=== PATIENT | female | born 1955 | race American Indian/Alaskan Native ===

== ENCOUNTER 2017-06-12 12:04 | Inpatient (IN) | payer MEDICARE ==
[2017-06-12] MEDS ORDERED: NACL 0.9% 500 ML 500 ML IV ONE ×2 (12:13→13:38)
[2017-06-12] MEDS ORDERED: ZEMURON IV ONE ×2 (12:14→12:27)
[2017-06-12] MEDS ORDERED: AMIDATE IV ONE ×2 (12:14→12:26)
[2017-06-12] MEDS ORDERED: SUBLIMAZE ONE (12:16)
[2017-06-12] MEDS ORDERED: NEO SYNEPHRINE IV ONE (12:23)
[2017-06-12] MEDS ORDERED: ARTIFICIAL TEARS OPHTH OINT OU PRN (12:24)
[2017-06-12] MEDS ORDERED: VASELINE LIP THERAPY TP PRN (12:24)
[2017-06-12] MEDS ORDERED: LEVOPHED DRIP 4 MG/NS 250 ML 4 MG/250 ML BAG IV ONE (12:32)
[2017-06-12] MEDS ORDERED: NACL 0.9% IV SCH (12:45)
[2017-06-12] MEDS ORDERED: NEO SYNEPHRINE IV SCH ×2 (12:45→14:00)
--- NOTE | 2017-06-12 12:56 | Emergency Department Report ---
ED General Adult HPI - General Chief complaint: Altered Mental Status Stated complaint: POSSIBLE CVA Time Seen by Provider: 06/12/17 12:52 Source: EMS (verbal report received from EMS.ems notes not available at time of chart dictation), RN notes reviewed, old records reviewed Mode of arrival: Stretcher Limitations: Altered Mental Status - History of Present Illness Initial comments: This is a 61-year-old female. She is previously unknown to me. Patient is brought to the hospital by EMS for altered mental status. As per verbal report from EMS, patient found unresponsive at home, but uncertain duration of time, for uncertain mechanism. EMS indicated the patient is sitting in a wheelchair. EMS further stated that the patient's son indicated the patient has been altered since this morning. The patient's son further indicated that the patient was alert yesterday, and indicated the patient had not taken insulin in 2 days. The patient's last known well time is not known, and family is not currently available for corroborating information. However, given that patient was found this morning by son as her EMS documentation with altered mental status, she is not a TPA candidate Patient had appropriate fingerstick in the field at 283. Upon arrival to the ER , patient was breathing sonorously, and not protecting her airway. An 18-gauge IV was placed by myself the left external jugular system, patient was placed on a nasal cannula, at 15 L/m, and received bag valve mask ventilation. She was found to be hypotensive with a blood pressure in the 60s/70s. The patient was intubated by myself emergently using direct laryngoscopy with no obvious complications. After intubation, the patient remained hypotensive. The family was available, patient had poor peripheral access, so the patient was emergently an administratively consented by myself for left-sided internal jugular central line placement. This was performed with ultrasound guidance with one attempt, with no difficulty and no obvious complications. No family is available at this time. No further information is available at this time. -: unknown Severity scale (0 -10): 10 Consistency: constant Improves with: other (per hpi) Worsens with: other (per hpi) Associated Symptoms: confusion, weakness, other (per hpi) - Related Data Home Medications Medication Instructions Recorded Confirmed Last Taken Clopidogrel [Plavix] 75 mg PO QDAY 06/12/17 06/12/17 Unknown Insulin Aspart [NovoLOG Flexpen] 16 units SQ BID 06/12/17 06/12/17 Unknown Lisinopril/Hydrochlorothiazide 1 tab PO QDAY 06/12/17 06/12/17 Unknown [Zestoretic 20-25 mg] Pantoprazole [Protonix] 40 mg PO QDAY 06/12/17 06/12/17 Unknown traMADol [Ultram] 50 mg PO Q6HR PRN 06/12/17 06/12/17 Unknown Allergies Allergy/AdvReac Type Severity Reaction Status Date / Time No Known Allergies Allergy Verified 03/31/14 10:36 ED Review of Systems ROS: Stated complaint: POSSIBLE CVA Other details as noted in HPI Comment: Unobtainable due to pts medical conditions ED Past Medical Hx - Past Medical History Hx Hypertension: Yes Hx Heart Attack/AMI: No Hx Congestive Heart Failure: No Hx Diabetes: Yes Hx Liver Disease: No Hx Renal Disease: Yes Hx Sickle Cell Disease: No Hx Arthritis: Yes Hx Seizures: No Hx Asthma: No Hx COPD: No Hx Tuberculosis: No - Surgical History Hx Pacemaker: No Hx Internal Defibrillator: No - Social History Smoking Status: Unknown if ever smoked - Medications Home Medications: Home Medications Medication Instructions Recorded Confirmed Last Taken Type Clopidogrel [Plavix] 75 mg PO QDAY 06/12/17 06/12/17 Unknown History Insulin Aspart [NovoLOG Flexpen] 16 units SQ BID 06/12/17 06/12/17 Unknown History Lisinopril/Hydrochlorothiazide 1 tab PO QDAY 06/12/17 06/12/17 Unknown History [Zestoretic 20-25 mg] Pantoprazole [Protonix] 40 mg PO QDAY 06/12/17 06/12/17 Unknown History traMADol [Ultram] 50 mg PO Q6HR PRN 06/12/17 06/12/17 Unknown History ED Physical Exam - General Limitations: Altered Mental Status General appearance: obtunded - Eye Eye exam: Present: PERRL - ENT ENT exam: Present: mucous membranes dry - Neck Neck exam: Present: normal inspection - Respiratory Respiratory exam: Absent: respiratory distress, wheezes, rales, rhonchi, stridor - Cardiovascular Cardiovascular Exam: Present: regular rate, normal rhythm, normal heart sounds. Absent: bradycardia, tachycardia, irregular rhythm, systolic murmur, diastolic murmur, rubs, gallop - GI/Abdominal GI/Abdominal exam: Present: soft, normal bowel sounds. Absent: distended, tenderness, guarding, rebound, rigid, pulsatile mass - Extremities Exam Extremities exam: Present: normal inspection. Absent: pedal edema - Back Exam Back exam: Present: normal inspection. Absent: CVA tenderness (R) - Neurological Exam Neurological exam: Present: altered, other (prior to intubation, the patient is moving 4 extremities spontaneously) ED Course Vital Signs 06/12/17 06/12/17 06/12/17 11:04 12:08 12:10 Temperature Pulse Rate 86 89 Respiratory 10 L 14 17 Rate Blood Pressure O2 Sat by Pulse 79 L Oximetry 06/12/17 06/12/17 06/12/17 12:25 12:29 12:30 Temperature Pulse Rate 90 88 93 H Respiratory 18 18 Rate Blood Pressure 131/82 64/42 O2 Sat by Pulse 100 95 96 Oximetry 06/12/17 06/12/17 06/12/17 12:40 12:42 12:50 Temperature Pulse Rate 90 93 H 90 Respiratory 18 20 Rate Blood Pressure 66/40 75/53 O2 Sat by Pulse 95 100 Oximetry 06/12/17 06/12/17 06/12/17 13:00 13:06 13:16 Temperature 97.7 F Pulse Rate 94 H 94 H Respiratory 18 18 Rate Blood Pressure 131/82 152/86 O2 Sat by Pulse 100 Oximetry 06/12/17 06/12/17 06/12/17 13:30 13:46 14:00 Temperature Pulse Rate 92 H 91 H 90 Respiratory 18 18 14 Rate Blood Pressure 201/102 188/115 192/111 O2 Sat by Pulse 100 100 100 Oximetry 06/12/17 06/12/17 06/12/17 14:16 14:30 15:02 Temperature Pulse Rate 89 95 H 81 Respiratory 14 14 15 Rate Blood Pressure 245/85 239/103 239/103 O2 Sat by Pulse 100 100 Oximetry 06/12/17 06/12/17 06/12/17 15:16 15:30 15:46 Temperature Pulse Rate 96 H 97 H 96 H Respiratory 15 16 13 Rate Blood Pressure 209/101 226/106 215/100 O2 Sat by Pulse 100 100 100 Oximetry 06/12/17 06/12/17 06/12/17 16:00 16:16 16:30 Temperature Pulse Rate 102 H 99 H 96 H Respiratory 17 14 14 Rate Blood Pressure 214/94 196/85 132/80 O2 Sat by Pulse 99 98 98 Oximetry 06/12/17 06/12/17 06/12/17 16:46 17:00 17:16 Temperature Pulse Rate 92 H 90 98 H Respiratory 16 14 15 Rate Blood Pressure 147/76 151/85 113/71 O2 Sat by Pulse 100 100 100 Oximetry 06/12/17 06/12/17 06/12/17 17:18 17:30 17:46 Temperature Pulse Rate 85 95 H Respiratory 17 17 Rate Blood Pressure 113/71 109/67 115/52 O2 Sat by Pulse 100 100 99 Oximetry 06/12/17 06/12/17 06/12/17 18:00 18:16 18:30 Temperature Pulse Rate 85 83 86 Respiratory 14 15 27 H Rate Blood Pressure 127/75 109/66 101/74 O2 Sat by Pulse 100 100 100 Oximetry 06/12/17 06/12/17 06/12/17 18:46 19:14 19:35 Temperature 95.5 F L Pulse Rate 82 90 Respiratory 14 Rate Blood Pressure 122/68 152/80 O2 Sat by Pulse 100 99 Oximetry - Reevaluation(s) Reevaluation #1: 06/12/17 14:42 Urinalysis suggests urinary tract infection. Antibiotics ordered. Blood pressure now in the 240s. No vasopressor requirements. Cardene drip ordered. Elevated troponin is appreciated. This is in the context of resolving hypotension, altered mental status and renal insufficiency. Noncontrast CT scan of the brain is pending. Reevaluation #2: 06/12/17 16:[address] scan of the brain demonstrates a large ill-defined area of low attenuation in the right posterior temporal parietal region. It suggests acute/ subacute/chronic ischemia. X-ray of the chest suggest pneumonia. Patient not a TPA candidate given hypotension, altered mental status, last known well time is unknown. Because of technical issues with the CT scanner, noncontrast CT scan of the cervical spine is not able to be obtained. X-ray of the cervical spine is ordered. Reevaluation #3: 06/12/17 16:51 Dr Owen accepts patient Noncontrast CT scan of the neck is negative. Endotracheal tube was retracted 5 cm by respiratory therapy. 06/12/17 19:57 - Central Line Placement Right IJ Consent Obtained: emergent situation Time Out Performed: Yes Patient Placed on Monitor/Pulse Ox: Yes MD Prep: mask, gown, gloves Central Line Prep: Chlorhexidine scrub Ultrasound Used for Placement: Yes Central Line Lumen Inserted: triple Bloods Obtained for Lab: Yes Central Line Position: good blood return, all ports aspirated, flus, sutured in place with 2-0 Dressing Applied: Tegaderm Post Procedure X-Ray: tip of catheter in good p Patient Tolerated Procedure: well Complications: none - EJ/Peripheral Line Neck L Time Out Performed: Yes Indications: nurses unable to establis Skin Cleansed in Sterile Fashion: Yes Size: 18 Dressing Placed: Tegaderm Patient Tolerated Procedure: well - Intubation Time Out Performed: Yes Sedative: Etomidate Mg Given: 20 Paralytic: Rocuronium Mg Given: 100 Laryngoscope: William Size: 4 ET Tube Size: 7.5 Tube Secured Depth (cm): 24 Tube Secured Location: teeth Tube Placement Confirmation: visualized tube passing t Patient Tolerated Procedure: well Intubation Complications: none Additional Comments: Patient is preoxygenated with nasal cannula at 15 L/m, received [id number] ventilation. Does not desaturate. Endotracheal tube placed with 1 attempt with no difficulty. ED Medical Decision Making - Lab Data Result diagrams: 06/12/17 12:55 06/12/17 12:55 Vital Signs 06/12/17 06/12/17 06/12/17 11:04 12:08 12:10 Temperature Pulse Rate 86 89 Respiratory 10 L 14 17 Rate Blood Pressure O2 Sat by Pulse 79 L Oximetry 06/12/17 06/12/17 06/12/17 12:25 12:29 12:30 Temperature Pulse Rate 90 88 93 H Respiratory 18 18 Rate Blood Pressure 131/82 64/42 O2 Sat by Pulse 100 95 96 Oximetry 06/12/17 06/12/17 06/12/17 12:40 12:42 12:50 Temperature Pulse Rate 90 93 H 90 Respiratory 18 20 Rate Blood Pressure 66/40 75/53 O2 Sat by Pulse 95 100 Oximetry 06/12/17 13:06 Temperature 97.7 F Pulse Rate Respiratory Rate Blood Pressure O2 Sat by Pulse Oximetry Lab Results 06/12/17 06/12/17 06/12/17 Range/Units 12:55 12:55 12:55 WBC 14.9 H (4.5-11.0) K/mm3 RBC 4.10 (3.65-5.03) M/mm3 Hgb 10.1 (10.1-14.3) gm/dl Hct 31.9 (30.3-42.9) % MCV 78 L (79-97) fl MCH 25 L (28-32) pg MCHC 32 (30-34) % RDW 15.8 H (13.2-15.2) % Plt Count 396 (140-440) K/mm3 Seg Neutrophils % Yield Loss Inspector PT 16.1 H (12.2-14.9) Sec. INR 1.30 H (0.87-1.13) APTT 29.2 (24.2-36.6) Sec. ABG pH (7.350-7.450) pH Units VBG pH (7.320-7.420) FiO2 % Sodium 145 (137-145) mmol/L Potassium 4.3 (3.6-5.0) mmol/L Chloride 105.9 (98-107) mmol/L Carbon Dioxide 20 L (22-30) mmol/L Anion Gap 23 mmol/L BUN 75 H (7-17) mg/dL Creatinine 2.5 H (0.7-1.2) mg/dL Estimated GFR 24 ml/min BUN/Creatinine Ratio 30.00 % Glucose 289 H (65-100) mg/dL Calcium 9.3 (8.4-10.2) mg/dL Total Bilirubin 0.40 (0.1-1.2) mg/dL AST 11 (5-40) units/L ALT 9 (7-56) units/L Alkaline Phosphatase 67 (35-129) units/L Total Protein 7.1 (6.3-8.2) g/dL Albumin 2.6 L (3.9-5) g/dL Albumin/Globulin Ratio 0.6 % Plasma/Serum Alcohol (0-0.07) gm% Blood Type 06/12/17 06/12/17 06/12/17 Range/Units 12:55 13:05 13:06 WBC (4.5-11.0) K/mm3 RBC (3.65-5.03) M/mm3 Hgb (10.1-14.3) gm/dl Hct (30.3-42.9) % MCV (79-97) fl MCH (28-32) pg MCHC (30-34) % RDW (13.2-15.2) % Plt Count (140-440) K/mm3 Seg Neutrophils % PT (12.2-14.9) Sec. INR (0.87-1.13) APTT (24.2-36.6) Sec. ABG pH 7.421 (7.350-7.450) pH Units VBG pH 7.421 H (7.320-7.420) FiO2 21 % Sodium (137-145) mmol/L Potassium (3.6-5.0) mmol/L Chloride (98-107) mmol/L Carbon Dioxide (22-30) mmol/L Anion Gap mmol/L BUN (7-17) mg/dL Creatinine (0.7-1.2) mg/dL Estimated GFR ml/min BUN/Creatinine Ratio % Glucose (65-100) mg/dL Calcium (8.4-10.2) mg/dL Total Bilirubin (0.1-1.2) mg/dL AST (5-40) units/L ALT (7-56) units/L Alkaline Phosphatase (35-129) units/L Total Protein (6.3-8.2) g/dL Albumin (3.9-5) g/dL Albumin/Globulin Ratio % Plasma/Serum Alcohol < 0.01 (0-0.07) gm% Blood Type O POSITIVE - EKG Data -: EKG Interpreted by In - EKG Data 06/12/17 13:46 sinus, 92 bpm, normal axis, QTC 489 ms, not morphologically consistent with STEMI, abnormal EKG, highly ventricular voltage/left ventricular hypertrophy. - Radiology Data Radiology results: report reviewed, image reviewed Noncontrast CT scan suggests subacute to chronic infarct. No intracranial hemorrhage. Portable x-ray of the chest demonstrates endotracheal tube in the right mainstem bronchus, appropriate positioning of central line, possible pneumonia. Critical Care Time: Yes Critical care time in (mins) excluding proc time.: 45 Critical care attestation.: If time is entered above; I have spent that time in minutes in the direct care of this critically ill patient, excluding procedure time. Critical Care Time: Critical care time includes multiple bedside evaluations, interpretation of laboratory studies, radiology studies, time spent discussing patient's care with multiple consulting services, including hospital medicine, critical care medicine. This does not include procedure time. ED Disposition Clinical Impression: Encephalopathy, UTI (urinary tract infection), Pneumonia Disposition: [id number] OP ADMIT IP TO THIS HOSP Is pt being admited?: Yes Condition: Critical
[2017-06-12] MEDS ORDERED: NACL 0.9% 500 ML IV SCH ×2 (13:00)
[2017-06-12] MEDS ORDERED: LEVOPHED DRIP 4 MG/NS 250 ML 4 MG/250 ML BAG IV SCH (13:00)
[2017-06-12 13:11] LABS: Hematocrit 31.9 % (30.3-42.9); Hemoglobin 10.1 gm/dl (10.1-14.3); Mean Corpuscular HGB Conc 32 % (30-34); Mean Corpuscular Volume 78 fl (79-97); Platelet Count 396 K/mm3 (140-440); Red Cell Distribution Width 15.8 % (13.2-15.2); White Blood Count 14.9 K/mm3 (4.5-11.0)
[2017-06-12 13:16] LABS: Mean Corpuscular Hemoglobin 25 pg (28-32)
[2017-06-12] MEDS ORDERED: NACL 0.9% 1000 ML 1,000 ML ONE (13:19)
[2017-06-12 13:20] LABS: INR 1.3 (0.87-1.13)
[2017-06-12 13:21] LABS: Partial Thromboplastin Time 29.2 Sec. (24.2-36.6)
[2017-06-12 13:30] LABS: Albumin 2.6 g/dL (3.9-5); Albumin/Globulin Ratio 0.6 %; Bilirubin,Total 0.4 mg/dL (0.1-1.2); Calcium 9.3 mg/dL (8.4-10.2); Chloride 105.9 mmol/L (98-107); Potassium 4.3 mmol/L (3.6-5.0); Total Protein 7.1 g/dL (6.3-8.2)
[2017-06-12] MEDS ORDERED: NACL 0.9% 1000 ML 2,000 ML IV ONE (13:40)
[2017-06-12 13:55] LABS: ABG PH TNR pH Units (7.350-7.450)
[2017-06-12 13:56] LABS: ABG Base Excess TNR mmol/L (-2.0-3.0); ABG HCO3 TNR mmol/L (20.0-26.0); ABG Oxygen Saturation TNR % (95.0-99.0); ABG PCO2 TNR mm Hg; ABG PO2 TNR mm Hg (80.0-90.0)
[2017-06-12 14:07] LABS: Bacteria,Urine 4+ /HPF (Negative); Bilirubin,Urine NEG (Negative); Blood,Urine MOD (Negative); Ketones,Urine NEG (Negative); Leukocyte Esterase,Urine LG (Negative); Mucus,Urine FEW /HPF; Nitrite,Urine NEG (Negative); Urobilinogen,Urine < 2.0 mg/dL (<2.0)
[2017-06-12 14:16] LABS: Blastocytes % (Manual) 0 %; Hypochromasia 1+
[2017-06-12 14:17] LABS: Anisocytosis 1+; Creatine Kinase 34 units/L (30-135); Diff Status Complete; Schistocytes Few; Target Cells 1+
[2017-06-12 14:19] LABS: Creatine Kinase MB < 1.0 ng/mL (0.0-4.0)
[2017-06-12] MEDS ORDERED: ROCEPHIN/NS 1 GM/50 ML 1 GM/50 ML BAG IV ONE (14:24)
[2017-06-12 14:26] LABS: ISTAT Base Excess 3; ISTAT HCO3 25.7; ISTAT PCO2 31.3 (35-45); ISTAT PH 7.521 (7.35-7.45); ISTAT PO2 389 (80-105); ISTAT SO2 100; ISTAT TCO2 27
[2017-06-12 15:13] LABS: Cholesterol 157 mg/dL (50-199); HDL Cholesterol 39 mg/dL (40-59); LDL Cholesterol,Direct 96 mg/dL (50-130); Triglycerides 114 mg/dL (2-149)
--- NOTE | 2017-06-12 15:31 | XRay Report ---
Single view chest: History: ET tube placement. Findings: Borderline cardiomegaly. Trachea is midline. Tip of endotracheal tube is in the right mainstem bronchus. It should be withdrawn approximately 5 cm. Right central line appears stable. Infiltrates are identified in the left lower lobe in the retrocardiac region. Impression: Infiltrates left lower lobe. Tip of endotracheal tube should be withdrawn as detailed above.
--- NOTE | 2017-06-12 15:32 | Cat Scan Report ---
CT scan of head without contrast: History: Altered mental status. Findings: Ventricles are normal in size and midline in location. Large ill-defined area of low-attenuation measuring approximately 5 x 3 cm in diameter noted in the right posterior temporoparietal region. There is no dilatation or compression of the adjacent ventricle. No midline shift. No hemorrhage. No extra-axial fluid collection. Normal brainstem. 4 mm focal area of low attenuation left cerebellum suggestive of chronic infarct. Impression: Large ill-defined area of low-attenuation in the right posterior temporoparietal region. No previous studies available for comparison. Findings may represent acute/subacute/chronic ischemia. If clinically indicated MRI scan may be advised.
--- NOTE | 2017-06-12 15:35 | Admit Criteria Form ---
Admission Criteria Documentation: SEPSIS and OTHER FEBRILE ILLNESS, W/O FOCAL INFECTION Clinical Indications for Admission to Inpatient Care ( Place 'X' for any and all applicable criteria): Admission to inpatient status for two midnights or more is indicated for ANY ONE of the following (1)(2)(3): [ ] I. Bacteremia [ ]II. Suspected or identified specific infection requiring hospitalization (eg, meningitis, endocarditis) [ ]III. Hemodynamic instability [ ]IV. Temperature > 104.9 0F (40.5 0C) (oral) [ ]V. Core (rectal) temperature < 95 0F (35 0C) (eg, thought to be due to infection) [X]. Altered mental status that is severe or persistent [ ]VII. Failure or unavailability of outpatient antimicrobial treatment [ ]VIII. Hypoxemia [ ]IX. Seizures [ ]X. New coagulopathy (eg, reduced platelet count consistent with disseminated intravascular coagulation) [ ]XI. Inpatient admission required [B] rather than observation care because of 1 or more of the following 1) Tachypnea not responsive to outpatient or observation treatment 2) Metabolic disorder (eg, hypoglycemia, hyperglycemia, metabolic acidosis ) that persists despite outpatient and observation care treatment 3) Evidence of end-organ dysfunction (eg, rising creatinine, myocardial ischemia, rising liver function tests) that is severe or persists despite observation care treatment 4) Temperature > 103.1 0F (39.5 0C) (oral) that is not responsive to observation care treatment 5) Dehydration that is severe or persistent 6) Parenteral antimicrobial regimen that must be implemented on inpatient basis (eg, infusion or monitoring needs beyond capabilities of outpatient parenteral therapy) 7) Strict or protective (eg, laminar flow) isolation 8) Other condition, treatment or monitoring requiring inpatient admission Extended stay beyond goal length of stay may be needed for(1)(3) [ ]a) Persistent Hypotension [ ]b) Positive blood cultures [ ]c) Lack of improvement on antimicrobial treatment (eg, continued fever) [ ]d) Active comorbid illness (eg, heart failure, renal failure) [ ]e) High-risk febrile neutropenia [ ]f) Insufficient oral intake [ ]g) insufficient oral intake The original [employer] content created by [employer] has been revised. The portions of the content which have been revised are identified through the use of italic text or in bold, and [employer] has neither reviewed nor approved the modified material. All other unmodified content is copyright [facility]. Please see references footnoted in the original [facility] edition 2017 Admission Criteria Met: Yes
[2017-06-12] MEDS: CARDENE 50 MG in NACL 0.9% 250ML 230 ML IV SCH (15:51)
[2017-06-12] MEDS ORDERED: ASPIRIN PR ONE (16:12)
--- NOTE | 2017-06-12 16:25 | Cat Scan Report ---
Cervical CT without contrast: Fall, pain. Transverse images are obtained from the skull base through T3. Coronal and sagittal 2-D reformatted images included. Anterior and posterior spurring with narrowing andis present at C5-6 and C6-7 levels. The vertebral height is maintained. There is mild reversal of the mid cervical spine at the C4-5 level. The left foramen appears questionably narrowed on left at C3-4 with some proliferation of bone from the apophyseal joint. There is mild right uncal spurring at C5-6 with mild narrowing of the foramen. There is no significant uncal spurring predominantly on the right at C6-7 with moderate narrowing of the foramen. No evidence of spinal stenosis identified. No obvious fracture and no swelling noted. Endotracheal and nasogastric tubes are present. Impressions: Findings most consistent with degenerative C5-7 changes. No fracture and no acute finding suspected.
[2017-06-12] MEDS ORDERED: ZITHROMAX 500 MG in NACL 0.9% 250ML 250 ML IV ONE (17:00)
--- NOTE | 2017-06-12 17:36 | History and Physical Report ---
History of Present Illness Date of examination: 06/12/17 Date of admission: 06/12/17 Chief complaint: AMS since yesterday History of present illness: History of Present Illness This is a 61-year-old female Patient brought to the hospital by EMS for altered mental status. As per verbal report from EMS, patient found unresponsive at home, but uncertain duration of time, for uncertain mechanism. EMS indicated the patient is sitting in a wheelchair. EMS further stated that the patient's son indicated the patient has been altered since this morning. The patient's son further indicated that the patient was alert yesterday, and indicated the patient had not taken insulin in 2 days. The patient's last known well time is not known, and family is not currently available for corroborating information. However, given that patient was found this morning by son as her EMS documentation with altered mental status, she is not a TPA candidate Patient had fingerstick in the field at 283. Upon arrival to the ER, patient was breathing sonorously, and not protecting her airway. A 18-gauge IV was placed in the left external jugular system, nasal cannula oxygen at 15 L/m, and received bag valve mask ventilation. She was found to be hypotensive with a blood pressure in the 60s/70s. The patient was intubated in the ER After intubation, the patient remained hypotensive. The family was unavailable , patient had poor peripheral access. Patient had Central line placed in L Jugular This was performed with ultrasound guidance with one attempt, with no difficulty and no obvious complications. No family is available at this time. No further information is available at this time. -: unknown Severity scale (0 -10): 10 Consistency: constant Improves with: other (per hpi) Worsens with: other (per hpi) Associated Symptoms: confusion, weakness, other (per hpi) ED Past Medical Hx - Past Medical History Hx Hypertension: Yes Hx Heart Attack/AMI: No Hx Congestive Heart Failure: No Hx Diabetes: Yes Hx Liver Disease: No Hx Renal Disease: Yes Hx Sickle Cell Disease: No Hx Arthritis: Yes Hx Seizures: No Hx Asthma: No Hx COPD: No Hx Tuberculosis: No - Surgical History Hx Pacemaker: No Hx Internal Defibrillator: No - Social History Smoking Status: Unknown if ever smoked - Medications Home Medications: Home Medications Medication Instructions Recorded Confirmed Last Taken Type Clopidogrel [Plavix] 75 mg PO QDAY 06/12/17 06/12/17 Unknown History Insulin Aspart [NovoLOG Flexpen] 16 units SQ BID 06/12/17 06/12/17 Unknown History Lisinopril/Hydrochlorothiazide 1 tab PO QDAY 06/12/17 06/12/17 Unknown History [Zestoretic 20-25 mg] Pantoprazole [Protonix] 40 mg PO QDAY 06/12/17 06/12/17 Unknown History traMADol [Ultram] 50 mg PO Q6HR PRN 06/12/17 06/12/17 Unknown History ED Review of Systems ROS: Stated complaint: POSSIBLE CVA Other details as noted in HPI Comment: Unobtainable due to pts medical conditions Medications and Allergies Allergies Allergy/AdvReac Type Severity Reaction Status Date / Time No Known Allergies Allergy Verified 03/31/14 10:36 Home Medications Medication Instructions Recorded Confirmed Last Taken Type Clopidogrel [Plavix] 75 mg PO QDAY 06/12/17 06/12/17 Unknown History Insulin Aspart [NovoLOG Flexpen] 16 units SQ BID 06/12/17 06/12/17 Unknown History Lisinopril/Hydrochlorothiazide 1 tab PO QDAY 06/12/17 06/12/17 Unknown History [Zestoretic 20-25 mg] Pantoprazole [Protonix] 40 mg PO QDAY 06/12/17 06/12/17 Unknown History traMADol [Ultram] 50 mg PO Q6HR PRN 06/12/17 06/12/17 Unknown History Active Meds: Active Medications Hydrophilic Ointment (Vaseline Lip Therapy) 1 applic TP Q2HR PRN PRN Reason: Dry Lips Phenylephrine HCl 100 mg/ (Sodium Chloride) 110 mls @ 0 mls/hr IV TITRATE ELIAZAR Norepinephrine (Levophed Drip 4 Mg/Ns 250 Ml) 4 mg in 250 mls @ 7.5 mls/hr IV TITR ELIAZAR; 2 MCG/MIN PRN Reason: Protocol Last Titration: 06/12/17 13:29 Dose: 0 mcg/min, 0 mls/hr Nicardipine HCl 50 mg/ Sodium (Chloride) 250 mls @ 25 mls/hr IV TITR ELIAZAR; 5 MG/ HR PRN Reason: Protocol Last Titration: 06/12/17 17:11 Dose: 0 mg/hr, 0 mls/hr Azithromycin 500 mg/ Sodium (Chloride) 250 mls @ 250 mls/hr IV ONCE.ED ONE Stop: 06/12/17 17:59 Multi-Ingred Cream/Lotion/Oil/Oint (Artificial Tears Ophth Oint) 1 applic OU Q4HR PRN PRN Reason: Dry Eye(s) Sodium Chloride (Nacl 0.9% 500 Ml) 100 ml IV DIRECT ELIAZAR Exam - Physical Exam Narrative exam: Patient intubated on vent - Constitutional Vitals: Temp Pulse Resp BP Pulse Ox 97.7 F 98 H 15 113/71 100 06/12/17 13:06 06/12/17 17:16 06/12/17 17:16 06/12/17 17:18 06/12/17 17:18 General appearance: Present: severe distress, well-nourished - EENT Eyes: Present: PERRL ENT: clear oral mucosa - Neck Neck: Present: supple, normal ROM - Respiratory Respiratory effort: normal Respiratory: bilateral: rhonchi - Cardiovascular Rhythm: regular Heart Sounds: Present: S1 & S2. Absent: rub, click - Extremities Extremities: no ischemia, pulses intact, pulses symmetrical, No edema Peripheral Pulses: within normal limits - Abdominal General gastrointestinal: Present: soft, non-tender, non-distended, normal bowel sounds Female genitourinary: Present: normal - Rectal Rectal Exam: deferred - Integumentary Integumentary: Present: clear, warm, dry - Musculoskeletal Musculoskeletal: generalized weakness - Psychiatric Psychiatric: agitated - Neurologic Neurologic: CNII-XII intact, moves all extremities - Allied Health Allied health notes reviewed: nursing, case management Results - Labs CBC & Chem 7: 06/13/17 04:45 06/13/17 04:45 Labs: Laboratory Last Values WBC 14.9 K/mm3 (4.5-11.0) H 06/12/17 12:55 RBC 4.10 M/mm3 (3.65-5.03) 06/12/17 12:55 Hgb 10.1 gm/dl (10.1-14.3) 06/12/17 12:55 Hct 31.9 % (30.3-42.9) 06/12/17 12:55 MCV 78 fl (79-97) L 06/12/17 12:55 MCH 25 pg (28-32) L 06/12/17 12:55 MCHC 32 % (30-34) 06/12/17 12:55 RDW 15.8 % (13.2-15.2) H 06/12/17 12:55 Plt Count 396 K/mm3 (140-440) 06/12/17 12:55 Add Manual Diff Complete 06/12/17 12:55 Total Counted 100 06/12/17 12:55 Seg Neutrophils % Button Pusher 06/12/17 12:55 Band Neutrophils % 0 % 06/12/17 12:55 Lymphocytes % (Manual) 2.0 % (13.4-35.0) L 06/12/17 12:55 Reactive Lymphs % (Man) 0 % 06/12/17 12:55 Monocytes % (Manual) 1.0 % (0.0-7.3) 06/12/17 12:55 Metamyelocytes % 0 % 06/12/17 12:55 Myelocytes % 0 % 06/12/17 12:55 Promyelocytes % 0 % 06/12/17 12:55 Blast Cells % 0 % 06/12/17 12:55 Nucleated RBC % Not Reportable 06/12/17 12:55 Seg Neutrophils # Man 14.5 K/mm3 (1.8-7.7) H 06/12/17 12:55 Band Neutrophils # 0.0 K/mm3 06/12/17 12:55 Lymphocytes # (Manual) 0.3 K/mm3 (1.2-5.4) L 06/12/17 12:55 Abs React Lymphs (Man) 0.0 K/mm3 06/12/17 12:55 Monocytes # (Manual) 0.1 K/mm3 (0.0-0.8) 06/12/17 12:55 Eosinophils # (Manual) 0.0 K/mm3 (0.0-0.4) 06/12/17 12:55 Basophils # (Manual) 0.0 K/mm3 (0.0-0.1) 06/12/17 12:55 Metamyelocytes # 0.0 K/mm3 06/12/17 12:55 Myelocytes # 0.0 K/mm3 06/12/17 12:55 Promyelocytes # 0.0 K/mm3 06/12/17 12:55 Blast Cells # 0.0 K/mm3 06/12/17 12:55 WBC Morphology Not Reportable 06/12/17 12:55 Hypersegmented Neuts Not Reportable 06/12/17 12:55 Hyposegmented Neuts Not Reportable 06/12/17 12:55 Hypogranular Neuts Not Reportable 06/12/17 12:55 Smudge Cells Not Reportable 06/12/17 12:55 Toxic Granulation Not Reportable 06/12/17 12:55 Toxic Vacuolation Not Reportable 06/12/17 12:55 Dohle Bodies Not Reportable 06/12/17 12:55 Pelger-Huet Anomaly Not Reportable 06/12/17 12:55 Penelope Rods Not Reportable 06/12/17 12:55 Platelet Estimate Appears normal 06/12/17 12:55 Clumped Platelets Not Reportable 06/12/17 12:55 Plt Clumps, EDTA Not Reportable 06/12/17 12:55 Large Platelets Not Reportable 06/12/17 12:55 Giant Platelets Not Reportable 06/12/17 12:55 Platelet Satelliting Not Reportable 06/12/17 12:55 Plt Morphology Comment Not Reportable 06/12/17 12:55 RBC Morphology Not Reportable 06/12/17 12:55 Dimorphic RBCs Not Reportable 06/12/17 12:55 Polychromasia Not Reportable 06/12/17 12:55 Hypochromasia 1+ 06/12/17 12:55 Poikilocytosis Not Reportable 06/12/17 12:55 Anisocytosis 1+ 06/12/17 12:55 Microcytosis Not Reportable 06/12/17 12:55 Macrocytosis Not Reportable 06/12/17 12:55 Spherocytes Not Reportable 06/12/17 12:55 Pappenheimer Bodies Not Reportable 06/12/17 12:55 Sickle Cells Not Reportable 06/12/17 12:55 Target Cells 1+ 06/12/17 12:55 Tear Drop Cells Not Reportable 06/12/17 12:55 Ovalocytes Not Reportable 06/12/17 12:55 Helmet Cells Not Reportable 06/12/17 12:55 [place] Bodies Not Reportable 06/12/17 12:55 [place] Rings Not Reportable 06/12/17 12:55 Sharee Cells Not Reportable 06/12/17 12:55 Bite Cells Not Reportable 06/12/17 12:55 Crenated Cell Not Reportable 06/12/17 12:55 Elliptocytes Not Reportable 06/12/17 12:55 Acanthocytes (Spur) Not Reportable 06/12/17 12:55 Rouleaux Not Reportable 06/12/17 12:55 Hemoglobin C Crystals Not Reportable 06/12/17 12:55 Schistocytes Few 06/12/17 12:55 Malaria parasites Not Reportable 06/12/17 12:55 Anastacio Bodies Not Reportable 06/12/17 12:55 Hem Pathologist Commnt No 06/12/17 12:55 PT 16.1 Sec. (12.2-14.9) H 06/12/17 12:55 INR 1.30 (0.87-1.13) H 06/12/17 12:55 APTT 29.2 Sec. (24.2-36.6) 06/12/17 12:55 POC ABG pH 7.521 (7.35-7.45) H 06/12/17 13:56 ABG pH TNR 06/12/17 12:55 POC ABG pCO2 31.3 (35-45) L 06/12/17 13:56 ABG pCO2 TNR 06/12/17 12:55 POC ABG pO2 389 (80-105) H 06/12/17 13:56 ABG pO2 TNR 06/12/17 12:55 POC ABG HCO3 25.7 06/12/17 13:56 ABG HCO3 TNR 06/12/17 12:55 POC ABG Total CO2 27 06/12/17 13:56 POC ABG O2 Sat 100 06/12/17 13:56 ABG O2 Saturation TNR 06/12/17 12:55 ABG O2 Content TNR 06/12/17 12:55 POC ABG Base Excess 3 06/12/17 13:56 ABG Base Excess TNR 06/12/17 12:55 ABG Hemoglobin TNR 06/12/17 12:55 ABG Carboxyhemoglobin TNR 06/12/17 12:55 ABG Methemoglobin TNR 06/12/17 12:55 VBG pH 7.421 (7.320-7.420) H 06/12/17 12:55 Oxyhemoglobin TNR 06/12/17 12:55 FiO2 100 % 06/12/17 13:56 Sodium 145 mmol/L (137-145) 06/12/17 12:55 Potassium 4.3 mmol/L (3.6-5.0) 06/12/17 12:55 Chloride 105.9 mmol/L (98-107) 06/12/17 12:55 Carbon Dioxide 20 mmol/L (22-30) L 06/12/17 12:55 Anion Gap 23 mmol/L 06/12/17 12:55 BUN 75 mg/dL (7-17) H 06/12/17 12:55 Creatinine 2.5 mg/dL (0.7-1.2) H 06/12/17 12:55 Estimated GFR 24 ml/min 06/12/17 12:55 BUN/Creatinine Ratio 30.00 % 06/12/17 12:55 Glucose 289 mg/dL (65-100) H 06/12/17 12:55 Lactic Acid 1.10 mmol/L (0.7-2.0) 06/12/17 14:47 Calcium 9.3 mg/dL (8.4-10.2) 06/12/17 12:55 Total Bilirubin 0.40 mg/dL (0.1-1.2) 06/12/17 12:55 AST 11 units/L (5-40) 06/12/17 12:55 ALT 9 units/L (7-56) 06/12/17 12:55 Alkaline Phosphatase 67 units/L (35-129) 06/12/17 12:55 Ammonia 40.0 umol/L (25-60) 06/12/17 13:06 Total Creatine Kinase 34 units/L (30-135) 06/12/17 12:55 CK-MB (CK-2) < 1.0 ng/mL (0.0-4.0) 06/12/17 12:55 CK-MB (CK-2) Rel Index 2.9 (0-4) 06/12/17 12:55 Troponin T 0.032 ng/mL (0.00-0.029) H 06/12/17 12:55 NT-Pro-B Natriuret Pep 484.7 pg/mL (0-900) 06/12/17 12:55 Total Protein 7.1 g/dL (6.3-8.2) 06/12/17 12:55 Albumin 2.6 g/dL (3.9-5) L 06/12/17 12:55 Albumin/Globulin Ratio 0.6 % 06/12/17 12:55 Triglycerides 114 mg/dL (2-149) 06/12/17 12:55 Cholesterol 157 mg/dL (50-199) 06/12/17 12:55 LDL Cholesterol Direct 96 mg/dL (50-130) 06/12/17 12:55 HDL Cholesterol 39 mg/dL (40-59) L 06/12/17 12:55 Cholesterol/HDL Ratio 4.02 % 06/12/17 12:55 TSH 1.160 mlU/mL (0.270-4.200) 06/12/17 13:06 Urine Color Yellow (Yellow) 06/12/17 13:07 Urine Turbidity Cloudy (Clear) 06/12/17 13:07 Urine pH 5.0 (5.0-7.0) 06/12/17 13:07 Ur Specific [place] 1.015 (1.003-1.030) 06/12/17 13:07 Urine Protein 100 mg/dl mg/dL (Negative) 06/12/17 13:07 Urine Glucose (UA) Neg mg/dL (Negative) 06/12/17 13:07 Urine Ketones Neg mg/dL (Negative) 06/12/17 13:07 Urine Blood Mod (Negative) 06/12/17 13:07 Urine Nitrite Neg (Negative) 06/12/17 13:07 Urine Bilirubin Neg (Negative) 06/12/17 13:07 Urine Urobilinogen < 2.0 mg/dL (<2.0) 06/12/17 13:07 Ur Leukocyte Esterase Lg (Negative) 06/12/17 13:07 Urine WBC (Auto) 179.0 /HPF (0.0-6.0) H 06/12/17 13:07 Urine RBC (Auto) 8.0 /HPF (0.0-6.0) 06/12/17 13:07 Urine Bacteria (Auto) 4+ /HPF (Negative) 06/12/17 13:07 Urine WBC Clumps 3+ /HPF 06/12/17 13:07 Urine Mucus Few /HPF 06/12/17 13:07 Salicylates < 0.3 mg/dL (2.8-20.0) L 06/12/17 13:06 Acetaminophen < 15.0 ug/mL (10.0-30.0) 06/12/17 13:06 Plasma/Serum Alcohol < 0.01 gm% (0-0.07) 06/12/17 13:06 Blood Type O POSITIVE 06/12/17 13:05 Antibody Screen Negative 06/12/17 13:05 - Imaging and Cardiology EKG: report reviewed Chest x-ray: report reviewed Assessment and Plan Advance Directives: Yes (Full code) Plan of care discussed with patient/family: No - Patient Problems (1) Acute respiratory failure Current Visit: Yes Status: Acute Qualifiers: Respiratory failure complication: hypoxia Qualified Code(s): J96.01 - Acute respiratory failure with hypoxia Plan to address problem: Cont vent support.Sepsis induced (2) Sepsis Current Visit: Yes Status: Acute Qualifiers: Sepsis type: sepsis due to unspecified organism Qualified Code(s): A41.9 - Sepsis, unspecified organism Plan to address problem: Patient started on IV Zosn and Vancomycin Check Cultures. Patient has florid UTI (3) Hypotension Current Visit: Yes Status: Acute Qualifiers: Hypotension type: unspecified hypotension type Trimester: T Qualified Code(s): I95.9 - Hypotension, unspecified Plan to address problem: Sec to Sepsis improving with IV fluids (4) Acute kidney injury Current Visit: Yes Status: Acute Plan to address problem: IV fluids for now and monitor BUN/Cr (5) HTN (hypertension) Current Visit: Yes Status: Chronic Qualifiers: Hypertension type: essential hypertension Qualified Code(s): I10 - Essential (primary) hypertension Plan to address problem: Lisinopril on hold b/c of hypotension (6) Type 2 diabetes mellitus Current Visit: No Status: Chronic Qualifiers: Diabetes mellitus complication status: with kidney complications Diabetes mellitus complication detail: D Diabetic retinopathy severity: D Proliferative retinopathy type: P Diabetes mellitus macular edema: D Diabetes mellitus terminal computer operator insulin use: D Laterality: L Chronic kidney disease stage: C Plan to address problem: Coverage for now (7) DVT prophylaxis Current Visit: Yes Status: Acute Plan to address problem: on Heparin/Lovenox
[2017-06-12] MEDS ORDERED: ULTRAM PO PRN (17:37)
[2017-06-12] MEDS ORDERED: TYLENOL PO PRN (17:38)
[2017-06-12] MEDS ORDERED: ZOFRAN IV PRN (17:38)
[2017-06-12] MEDS ORDERED: MILK OF MAGNESIA PO PRN (17:38)
[2017-06-12] MEDS ORDERED: DILAUDID IV PRN (17:38)
[2017-06-12] MEDS ORDERED: DULCOLAX PR PRN (17:38)
--- NOTE | 2017-06-12 17:56 | XRay Report ---
FINAL REPORT EXAM: XR SPINE CERVICAL 2-3V HISTORY: ams TECHNIQUE: Cervical spine two views PRIORS: None. FINDINGS: There is degenerative disc space narrowing C5-C6-C6-C7. Facet joints demonstrate normal alignment. Odontoid views not included. ET and NG tubes noted IMPRESSION: Degenerative disc disease C5-C6-C6-C7. Cervical thoracic junction not well seen due to overlying shoulders. On the views obtained no definitive acute displaced fracture identified
[2017-06-12] MEDS ORDERED: ZOSYN/NS 4.5GM/100ML 4.5 GM/100 ML VIAL IV SCH (18:00)
[2017-06-12] MEDS ORDERED: VANCOMYCIN PHARMACY TO DOSE IV SCH (18:00)
[2017-06-12] MEDS ORDERED: ZOSYN/NS 4.5GM/100ML 4.5 GM/100 ML VIAL IV ONE (19:26)
[2017-06-12] MEDS ORDERED: D50W (25GM) Syringe IV PRN (19:33)
--- NOTE | 2017-06-12 19:38 | Consultation ---
History of Present Illness Consult date: 06/12/17 Requesting physician: HARVEY RODRIGUEZ Reason for consult: other (Acute Encephalopathy; Acute Respiratory Failure ) History of present illness: PULMONARY/CCM CONSULT NOTE (Full dictation # [id number]) Please see dictated notes for full details Medications and Allergies Allergies Allergy/AdvReac Type Severity Reaction Status Date / Time No Known Allergies Allergy Verified 03/31/14 10:36 Home Medications Medication Instructions Recorded Confirmed Last Taken Type Clopidogrel [Plavix] 75 mg PO QDAY 06/12/17 06/12/17 Unknown History Insulin Aspart [NovoLOG Flexpen] 16 units SQ BID 06/12/17 06/12/17 Unknown History Lisinopril/Hydrochlorothiazide 1 tab PO QDAY 06/12/17 06/12/17 Unknown History [Zestoretic 20-25 mg] Pantoprazole [Protonix] 40 mg PO QDAY 06/12/17 06/12/17 Unknown History traMADol [Ultram] 50 mg PO Q6HR PRN 06/12/17 06/12/17 Unknown History Active Meds: Active Medications Acetaminophen (Tylenol) 650 mg PO Q4H PRN PRN Reason: Pain MILD(1-3)/Fever >100.5/PAN Bisacodyl (Dulcolax) 10 mg NC QDAY PRN PRN Reason: Constipation unrelieved by MOM Clopidogrel Bisulfate (Plavix) 75 mg PO QDAY ELIAZAR Dextrose (D50w (25gm)) 50 ml IV PRN PRN PRN Reason: Hypoglycemia Enoxaparin Sodium (Lovenox) 40 mg SUB-Q QDAY ELIAZAR Hydromorphone HCl (Dilaudid) 0.5 mg IV Q3H PRN PRN Reason: Pain , Severe (7-10) Hydrophilic Ointment (Vaseline Lip Therapy) 1 applic TP Q2HR PRN PRN Reason: Dry Lips Phenylephrine HCl 100 mg/ (Sodium Chloride) 110 mls @ 0 mls/hr IV TITRATE ELIAZAR Norepinephrine (Levophed Drip 4 Mg/Ns 250 Ml) 4 mg in 250 mls @ 7.5 mls/hr IV TITR ELIAZAR; 2 MCG/MIN PRN Reason: Protocol Last Titration: 06/12/17 13:29 Dose: 0 mcg/min, 0 mls/hr Nicardipine HCl 50 mg/ Sodium (Chloride) 250 mls @ 25 mls/hr IV TITR ELIAZAR; 5 MG/ HR PRN Reason: Protocol Last Titration: 06/12/17 17:11 Dose: 0 mg/hr, 0 mls/hr Sodium Chloride (Nacl 0.9% 1000 Ml) 1,000 mls @ 100 mls/hr IV DIRECT ELIAZAR Piperacillin Sod/Tazobactam Sod (Zosyn/Ns 4.5gm/100ml) 4.5 gm in 100 mls @ 200 mls/hr IV Q8HR ELIAZAR PRN Reason: Protocol Insulin Human Regular (Novolin R) 0 units SUB-Q Q6HR ELIAZAR PRN Reason: Protocol Magnesium Hydroxide (Milk Of Magnesia) 30 ml PO Q4H PRN PRN Reason: Constipation Multi-Ingred Cream/Lotion/Oil/Oint (Artificial Tears Ophth Oint) 1 applic OU Q4HR PRN PRN Reason: Dry Eye(s) Ondansetron HCl (Zofran) 4 mg IV Q8H PRN PRN Reason: N/V unrelieved by Reglan Pantoprazole Sodium (Protonix) 40 mg PO QDAY ELIAZAR Sodium Chloride (Nacl 0.9% 500 Ml) 100 ml IV DIRECT ELIAZAR Tramadol HCl (Ultram) 50 mg PO Q6HR PRN PRN Reason: Pain Vancomycin HCl (Vancomycin Pharmacy To Dose) 1 each IV PKCONSULT ELIAZAR PRN Reason: Protocol Physical Examination Vital signs: Vital Signs Resp 10 L 06/12/17 11:04 Results - Laboratory Findings CBC and BMP: 06/12/17 12:55 06/12/17 12:55 ABG POC ABG pH 7.521 (7.35-7.45) H 06/12/17 13:56 ABG pH TNR 06/12/17 12:55 POC ABG pCO2 31.3 (35-45) L 06/12/17 13:56 ABG pCO2 TNR 06/12/17 12:55 POC ABG pO2 389 (80-105) H 06/12/17 13:56 ABG pO2 TNR 06/12/17 12:55 POC ABG HCO3 25.7 06/12/17 13:56 POC ABG Total CO2 27 06/12/17 13:56 POC ABG O2 Sat 100 06/12/17 13:56 ABG O2 Saturation TNR 06/12/17 12:55 PT/INR, D-dimer PT 16.1 Sec. (12.2-14.9) H 06/12/17 12:55 INR 1.30 (0.87-1.13) H 06/12/17 12:55
[2017-06-12] MEDS ORDERED: VANCOMYCIN/NS 1 GM/250 ML 1 GM/250 ML BAG IV ONE (20:00)
[2017-06-12] MEDS: NACL 0.9% 1000 ML 1,000 ML IV SCH (21:14)
[2017-06-12] MEDS ORDERED: ZOSYN/NS 2.25 GM/50ML 2.25 GM/50 ML BAG IV SCH (22:00)
[2017-06-13] MEDS ORDERED: ZOSYN/NS 2.25 GM/50ML 2.25 GM/50 ML BAG IV SCH ×2 (02:00→04:00)
[2017-06-13 05:08] LABS: Basophils % (Auto) 0.1 % (0.0-1.8); Eosinophils % (Auto) 0.4 % (0.0-4.3); Hematocrit 26.8 % (30.3-42.9); Hemoglobin 8.8 gm/dl (10.1-14.3); Mean Corpuscular HGB Conc 33 % (30-34); Mean Corpuscular Volume 76 fl (79-97); Platelet Count 304 K/mm3 (140-440); Red Blood Count 3.53 M/mm3 (3.65-5.03); Red Cell Distribution Width 15.2 % (13.2-15.2); White Blood Count 15.3 K/mm3 (4.5-11.0)
[2017-06-13 05:15] LABS: Mean Corpuscular Hemoglobin 25 pg (28-32)
[2017-06-13 05:23] LABS: Albumin 2.5 g/dL (3.9-5); Albumin/Globulin Ratio 0.7 %; BUN/Creatinine Ratio 31.05; Bilirubin,Total 0.4 mg/dL (0.1-1.2); Calcium 8.8 mg/dL (8.4-10.2); Chloride 115.1 mmol/L (98-107); Potassium 3.9 mmol/L (3.6-5.0); Total Protein 6.3 g/dL (6.3-8.2)
[2017-06-13 07:05] LABS: ISTAT Base Excess -1; ISTAT HCO3 22.2; ISTAT PCO2 30.7 (35-45); ISTAT PH 7.467 (7.35-7.45); ISTAT PO2 106 (80-105); ISTAT SO2 99; ISTAT TCO2 23
--- NOTE | 2017-06-13 09:14 | XRay Report ---
Single view chest: Compared to 06/12/17. History: Followup of respiratory failure. Findings: Normal cardiomediastinal silhouette. Trachea is midline. Tip of endotracheal tube and right central line in normal position. Tip of NG tube below diaphragm. No consolidation, pneumothorax or pleural effusion. Impression: No acute cardiopulmonary findings.
[2017-06-13] MEDS ORDERED: LOVENOX SUB-Q SCH (10:00)
[2017-06-13] MEDS: PLAVIX PO SCH (10:11)
[2017-06-13] MEDS: VANCOMYCIN/NS 1 GM/250 ML 1 GM/250 ML BAG IV SCH (10:11)
[2017-06-13] MEDS: LOVENOX SUB-Q SCH (10:11)
[2017-06-13] MEDS: PROTONIX PO SCH (10:12)
[2017-06-13] MEDS: NACL 0.9% 1000 ML 1,000 ML IV SCH (10:19)
[2017-06-13] MEDS ORDERED: SODIUM BICARBONATE FEEDTUBE PRN (10:47)
[2017-06-13] MEDS ORDERED: PANCREAZE DR 10,500 UNIT FEEDTUBE PRN (10:47)
[2017-06-13] MEDS ORDERED: SIMPLE SYRUP FEEDTUBE PRN ×2 (10:47)
[2017-06-13] MEDS: ZOSYN/NS 2.25 GM/50ML 2.25 GM/50 ML BAG IV SCH ×4 (13:00→23:24)
--- NOTE | 2017-06-13 13:00 | Progress Note ---
Assessment and Plan - Patient Problems (1) Acute respiratory failure Current Visit: Yes Status: Acute Qualifiers: Respiratory failure complication: hypoxia Qualified Code(s): J96.01 - Acute respiratory failure with hypoxia Plan to address problem: - continue bronchodilators and pulmonary toilet - continue aspiration precautions / address VAP bundle daily - wean oxygen for O2 Sats > 94% - begin weaning via PSV as tolerated now - mental status may be rate limiting step to extubation (2) Hypertensive urgency Current Visit: Yes Status: Acute Plan to address problem: - resumed cardene drip - will up-titrate oral antihypertensive medication doses (3) Sepsis Current Visit: Yes Status: Acute Qualifiers: Sepsis type: sepsis due to unspecified organism Qualified Code(s): A41.9 - Sepsis, unspecified organism Plan to address problem: - continue empiric AB's - follow C&S results - continue volume resuscitation re: MURALI / IVVD - continue other care as above (4) Acute kidney injury Current Visit: Yes Status: Acute Plan to address problem: - continue volume resuscitation - follow I's & O's - correct electrolytes as necessary - treat UTI - will defer to nephrology otherwise (5) Encephalopathy Current Visit: Yes Status: Acute Plan to address problem: - unclear baseline mental status but per history this is an acute encephalopathy - CT brain reviewed - will order MRI once more stable - will get neurology consultation (6) Type 2 diabetes mellitus Current Visit: No Status: Chronic Qualifiers: Diabetes mellitus complication status: with kidney complications Diabetes mellitus complication detail: D Diabetic retinopathy severity: D Proliferative retinopathy type: P Diabetes mellitus macular edema: D Diabetes mellitus shelter insulin use: D Laterality: L Chronic kidney disease stage: C Plan to address problem: - continue SSI (7) Discharge planning issues Current Visit: Yes Status: Acute Plan to address problem: - remains critically ill on life sustaining interventions including MVS and at risk for further deterioration including deasth ....35' CCT Subjective Date of service: 06/13/17 Principal diagnosis: Acute Respiratory Failure; Acute Encephalopathy Interval history: Seen and examined at bedside; 24 hour events reviewed; nursing and respiratory care staff consulted; no adverse overnight events reported to me; resting peacefully in bed; remains on MVS; AMS is a little better; no emesis or overt aspiration; she is bleeding at the Right IJ CVL site Objective Vital Signs - 12hr 08/10/1806/13/17 06/13/17 01:00 01:10 01:20 Temperature Pulse Rate 83 86 82 Pulse Rate [ From Monitor] Respiratory 15 28 H 15 Rate Blood Pressure 158/70 158/70 158/70 O2 Sat by Pulse 100 100 100 Oximetry 06/13/17 06/13/17 06/13/17 01:30 01:40 01:50 Temperature Pulse Rate 86 86 83 Pulse Rate [ From Monitor] Respiratory 14 30 H 15 Rate Blood Pressure 137/72 158/70 158/70 O2 Sat by Pulse 100 100 100 Oximetry 06/13/17 06/13/17 06/13/17 02:00 02:10 02:20 Temperature Pulse Rate 79 80 80 Pulse Rate [ From Monitor] Respiratory 23 14 29 H Rate Blood Pressure 137/72 137/72 137/67 O2 Sat by Pulse 100 100 100 Oximetry 06/13/17 06/13/17 06/13/17 02:30 02:40 02:50 Temperature Pulse Rate 82 80 83 Pulse Rate [ From Monitor] Respiratory 18 14 16 Rate Blood Pressure 152/67 152/67 152/67 O2 Sat by Pulse 100 100 100 Oximetry 06/13/17 06/13/17 06/13/17 03:00 03:10 03:20 Temperature Pulse Rate 85 80 79 Pulse Rate [ From Monitor] Respiratory 26 H 14 14 Rate Blood Pressure 152/67 176/67 176/67 O2 Sat by Pulse 100 100 100 Oximetry 06/13/17 06/13/17 06/13/17 03:30 03:40 03:42 Temperature 99.4 F Pulse Rate 82 81 Pulse Rate [ From Monitor] Respiratory 14 14 Rate Blood Pressure 188/72 188/72 O2 Sat by Pulse 100 100 Oximetry 06/13/17 06/13/17 06/13/17 03:50 04:00 04:10 Temperature Pulse Rate 78 79 80 Pulse Rate [ From Monitor] Respiratory 16 14 14 Rate Blood Pressure 164/64 152/60 152/60 O2 Sat by Pulse 100 100 100 Oximetry 06/13/17 06/13/17 06/13/17 04:20 04:30 04:40 Temperature Pulse Rate 80 77 82 Pulse Rate [ From Monitor] Respiratory 14 17 14 Rate Blood Pressure 152/60 154/62 152/60 O2 Sat by Pulse 100 100 100 Oximetry 06/13/17 06/13/17 06/13/17 04:50 05:00 05:09 Temperature Pulse Rate 77 77 73 Pulse Rate [ From Monitor] Respiratory 15 20 Rate Blood Pressure 152/60 152/60 124/67 O2 Sat by Pulse 100 100 Oximetry 06/13/17 06/13/17 06/13/17 05:10 05:20 05:30 Temperature Pulse Rate 76 73 74 Pulse Rate [ From Monitor] Respiratory 15 24 22 Rate Blood Pressure 124/67 124/67 122/59 O2 Sat by Pulse 100 100 100 Oximetry 06/13/17 06/13/17 06/13/17 05:36 05:40 05:50 Temperature Pulse Rate 74 75 81 Pulse Rate [ From Monitor] Respiratory 22 16 14 Rate Blood Pressure 122/59 122/59 O2 Sat by Pulse 100 100 100 Oximetry 06/13/17 06/13/17 06/13/17 06:00 06:10 06:20 Temperature Pulse Rate 81 81 82 Pulse Rate [ From Monitor] Respiratory 13 14 13 Rate Blood Pressure 189/75 189/75 189/75 O2 Sat by Pulse 100 100 100 Oximetry 06/13/17 06/13/17 06/13/17 06:30 06:36 06:40 Temperature Pulse Rate 82 81 Pulse Rate [ From Monitor] Respiratory 14 15 14 Rate Blood Pressure 164/71 164/71 O2 Sat by Pulse 100 100 Oximetry 06/13/17 06/13/17 06/13/17 06:50 07:00 07:10 Temperature Pulse Rate 81 82 81 Pulse Rate [ From Monitor] Respiratory 14 14 14 Rate Blood Pressure 164/71 147/67 147/67 O2 Sat by Pulse 100 100 100 Oximetry 06/13/17 06/13/17 06/13/17 07:20 07:30 07:33 Temperature Pulse Rate 80 81 80 Pulse Rate [ From Monitor] Respiratory 14 17 Rate Blood Pressure 147/67 122/65 122/65 O2 Sat by Pulse 100 100 100 Oximetry 06/13/17 06/13/17 06/13/17 07:40 07:50 08:00 Temperature 99.3 F Pulse Rate 78 78 79 Pulse Rate [ From Monitor] Respiratory 22 14 14 Rate Blood Pressure 122/65 147/67 158/73 O2 Sat by Pulse 100 100 100 Oximetry 06/13/17 06/13/17 06/13/17 08:10 08:20 08:30 Temperature Pulse Rate 78 81 80 Pulse Rate [ From Monitor] Respiratory 14 14 14 Rate Blood Pressure 158/73 122/65 165/72 O2 Sat by Pulse 100 100 100 Oximetry 06/13/17 06/13/17 06/13/17 08:40 08:50 09:00 Temperature Pulse Rate 79 80 79 Pulse Rate [ From Monitor] Respiratory 14 14 14 Rate Blood Pressure 165/72 158/73 179/71 O2 Sat by Pulse 100 100 100 Oximetry 06/13/17 06/13/17 06/13/17 09:10 09:20 09:30 Temperature Pulse Rate 80 81 80 Pulse Rate [ From Monitor] Respiratory 14 15 14 Rate Blood Pressure 179/71 179/71 187/81 O2 Sat by Pulse 100 100 100 Oximetry 06/13/17 06/13/17 06/13/17 09:40 09:50 10:00 Temperature Pulse Rate 80 81 80 Pulse Rate [ From Monitor] Respiratory 14 14 14 Rate Blood Pressure 187/81 187/81 139/68 O2 Sat by Pulse 100 100 100 Oximetry 06/13/17 06/13/17 06/13/17 10:10 10:20 10:30 Temperature Pulse Rate 76 75 71 Pulse Rate [ From Monitor] Respiratory 14 14 16 Rate Blood Pressure 139/68 139/68 117/61 O2 Sat by Pulse 100 100 99 Oximetry 06/13/17 06/13/17 06/13/17 10:40 10:50 11:00 Temperature Pulse Rate 75 74 74 Pulse Rate [ From Monitor] Respiratory 14 14 14 Rate Blood Pressure 117/61 117/61 157/64 O2 Sat by Pulse 100 100 98 Oximetry 06/13/17 06/13/17 06/13/17 11:10 11:20 11:30 Temperature Pulse Rate 71 78 76 Pulse Rate [ From Monitor] Respiratory 17 14 25 H Rate Blood Pressure 157/64 157/64 147/70 O2 Sat by Pulse 100 100 100 Oximetry 06/13/17 06/13/17 06/13/17 11:40 11:45 11:50 Temperature Pulse Rate 72 75 76 Pulse Rate [ From Monitor] Respiratory 18 14 Rate Blood Pressure 147/70 147/70 147/70 O2 Sat by Pulse 100 100 100 Oximetry 06/13/17 12:00 Temperature Pulse Rate 82 Pulse Rate [ 79 From Monitor] Respiratory 24 Rate Blood Pressure 147/70 O2 Sat by Pulse 100 Oximetry Constitutional: appears uncomfortable Eyes: non-icteric ENT: oropharynx moist Neck: supple, no lymphadenopathy Effort: mildly labored Ascultation: Bilateral: rales (scant) Cardiovascular: regular rate and rhythm Gastrointestinal: normoactive bowel sounds, soft, non-tender, non-distended Integumentary: normal Extremities: no cyanosis, no edema, pulses normal, no ischemia or petechiae Neurologic: unable to assess Psychiatric: other (unable to assess) CBC and BMP: 06/13/17 04:45 06/13/17 04:45 ABG, PT/INR, D-dimer: ABG POC ABG pH 7.467 (7.35-7.45) H 06/13/17 05:09 ABG pH TNR 06/12/17 12:55 POC ABG pCO2 30.7 (35-45) L 06/13/17 05:09 ABG pCO2 TNR 06/12/17 12:55 POC ABG pO2 106 (80-105) H 06/13/17 05:09 ABG pO2 TNR 06/12/17 12:55 POC ABG HCO3 22.2 06/13/17 05:09 POC ABG Total CO2 23 06/13/17 05:09 POC ABG O2 Sat 99 06/13/17 05:09 ABG O2 Saturation TNR 06/12/17 12:55 PT/INR, D-dimer PT 16.1 Sec. (12.2-14.9) H 06/12/17 12:55 INR 1.30 (0.87-1.13) H 06/12/17 12:55 Abnormal lab findings: Abnormal Labs 06/12/17 06/13/17 06/13/17 23:40 04:45 04:45 WBC 15.3 H RBC 3.53 L Hgb 8.8 L Hct 26.8 L MCV 76 L MCH 25 L Lymph % (Auto) 4.8 L Lymph # 0.7 L Seg Neutrophils % 89.4 H Seg Neutrophils # 13.7 H POC ABG pH POC ABG pCO2 POC ABG pO2 Sodium 150 H Chloride 115.1 H BUN 59 H Creatinine 1.9 H Glucose 156 H POC Glucose 231 H Albumin 2.5 L 06/13/17 06/13/17 06/13/17 05:09 05:29 12:28 WBC RBC Hgb Hct MCV MCH Lymph % (Auto) Lymph # Seg Neutrophils % Seg Neutrophils # POC ABG pH 7.467 H POC ABG pCO2 30.7 L POC ABG pO2 106 H Sodium Chloride BUN Creatinine Glucose POC Glucose 185 H 157 H Albumin Chest x-ray: image reviewed
--- NOTE | 2017-06-13 13:54 | Consultation ---
History of Present Illness - Reason for Consult Consult date: 06/13/17 acute renal failure, chronic renal failure - History of Present Illness The patient is a 61-year-old AAF with medical history significant for DM type 2 , HTN and CKD stage 3 who was brought to the hospital by EMS for altered mental status. Unable to obtain any history from patient at this time and no family member at the bedside. Patient was found unresponsive at home, but uncertain duration of time. Patient was admitted with diagnosis of CVA, Respiratory failure and MURALI. She is intubated and on mechanical ventilation. She was hypotensive initially with SBP in the 60s/70s. Briefly she was Levophed drip. Currently she is on Cardene drip for uncontrolled hypertension. Her creatinine was 2.5 on admission. Sodium level is 150 today. Past History Past Medical History: diabetes, hypertension Medications and Allergies Allergies Allergy/AdvReac Type Severity Reaction Status Date / Time No Known Allergies Allergy Verified 03/31/14 10:36 Home Medications Medication Instructions Recorded Confirmed Last Taken Type Clopidogrel [Plavix] 75 mg PO QDAY 06/12/17 06/12/17 Unknown History Insulin Aspart [NovoLOG Flexpen] 16 units SQ BID 06/12/17 06/12/17 Unknown History Lisinopril/Hydrochlorothiazide 1 tab PO QDAY 06/12/17 06/12/17 Unknown History [Zestoretic 20-25 mg] Pantoprazole [Protonix] 40 mg PO QDAY 06/12/17 06/12/17 Unknown History traMADol [Ultram] 50 mg PO Q6HR PRN 06/12/17 06/12/17 Unknown History Active Meds: Active Medications Acetaminophen (Tylenol) 650 mg PO Q4H PRN PRN Reason: Pain MILD(1-3)/Fever >100.5/PAN Lipase/Protease/Amylase (Pancreaze Dr 10,500 Unit) 1 each FEEDTUBE PRN PRN PRN Reason: For Clogged Feeding Tube Bisacodyl (Dulcolax) 10 mg NE QDAY PRN PRN Reason: Constipation unrelieved by MOM Clopidogrel Bisulfate (Plavix) 75 mg PO QDAY ELIAZAR Last Admin: 06/13/17 10:11 Dose: 75 mg Dextrose (D50w (25gm)) 50 ml IV PRN PRN PRN Reason: Hypoglycemia Enoxaparin Sodium (Lovenox) 30 mg SUB-Q QDAY ELIAZAR Last Admin: 06/13/17 10:11 Dose: 30 mg Hydromorphone HCl (Dilaudid) 0.5 mg IV Q3H PRN PRN Reason: Pain , Severe (7-10) Last Admin: 06/13/17 06:36 Dose: 0.5 mg Hydrophilic Ointment (Vaseline Lip Therapy) 1 applic TP Q2HR PRN PRN Reason: Dry Lips Phenylephrine HCl 100 mg/ (Sodium Chloride) 110 mls @ 0 mls/hr IV TITRATE ELIAZAR Norepinephrine (Levophed Drip 4 Mg/Ns 250 Ml) 4 mg in 250 mls @ 7.5 mls/hr IV TITR ELIAZAR; 2 MCG/MIN PRN Reason: Protocol Last Titration: 06/12/17 13:29 Dose: 0 mcg/min, 0 mls/hr Nicardipine HCl 50 mg/ Sodium (Chloride) 250 mls @ 25 mls/hr IV TITR ELIAZAR; 5 MG/ HR PRN Reason: Protocol Last Titration: 06/12/17 17:11 Dose: 0 mg/hr, 0 mls/hr Sodium Chloride (Nacl 0.9% 1000 Ml) 1,000 mls @ 100 mls/hr IV DIRECT ELIAZAR Last Admin: 06/13/17 10:19 Dose: 100 mls/hr Vancomycin HCl (Vancomycin/Ns 1 Gm/250 Ml) 1 gm in 250 mls @ 166.667 mls/hr IV Q24HR ELIAZAR Last Admin: 06/13/17 10:11 Dose: 166.667 mls/hr Piperacillin Sod/Tazobactam Sod (Zosyn/Ns 2.25 Gm/50ml) 2.25 gm in 50 mls @ 100 mls/hr IV Q6HR [facility] Insulin Human Regular (Novolin R) 0 units SUB-Q Q6HR ELIAZAR PRN Reason: Protocol Last Admin: 06/13/17 06:06 Dose: 2 units Magnesium Hydroxide (Milk Of Magnesia) 30 ml PO Q4H PRN PRN Reason: Constipation Multi-Ingred Cream/Lotion/Oil/Oint (Artificial Tears Ophth Oint) 1 applic OU Q4HR PRN PRN Reason: Dry Eye(s) Ondansetron HCl (Zofran) 4 mg IV Q8H PRN PRN Reason: N/V unrelieved by Reglan Pantoprazole Sodium (Protonix) 40 mg PO QDAY ELIAZAR Last Admin: 06/13/17 10:12 Dose: 40 mg Simple Syrup (Simple Syrup) 15 ml FEEDTUBE PRN PRN PRN Reason: Hypoglycemia Simple Syrup (Simple Syrup) 30 ml FEEDTUBE PRN PRN PRN Reason: Hypoglycemia Sodium Bicarbonate (Sodium Bicarbonate) 325 mg FEEDTUBE PRN PRN PRN Reason: For Clogged Feeding Tube Sodium Chloride (Nacl 0.9% 500 Ml) 100 ml IV DIRECT ELIAZAR Tramadol HCl (Ultram) 50 mg PO Q6HR PRN PRN Reason: Pain Vancomycin HCl (Vancomycin Pharmacy To Dose) 1 each IV PKCONSULT ELIAZAR PRN Reason: Protocol Review of Systems ROS unobtainable: due to endotracheal tube Exam - Vital Signs Vital signs: Vital Signs Resp 10 L 06/12/17 11:04 - General Appearance General appearance: well-developed, appears stated age, other (on vent FiO2 35%) EENT: ATNC Neck: Present: neck supple, trachea midline Respiratory: Other (coarse breath sounds) Heart: regular, S1S2, no murmurs Gastrointestinal: Present: normoactive bowel sounds, obese. Absent: tenderness , distended Integumentary: no rash Neurologic: other (arousable, not following any command) Musculoskeletal: Present: other (no edema) Results - Lab Results 06/13/17 04:45 06/13/17 04:45 Most recent lab results ABG pH TNR 06/12/17 12:55 ABG pCO2 TNR 06/12/17 12:55 ABG pO2 TNR 06/12/17 12:55 ABG HCO3 TNR 06/12/17 12:55 ABG O2 Saturation TNR 06/12/17 12:55 Calcium 8.8 mg/dL (8.4-10.2) 06/13/17 04:45 Assessment and Plan - Patient Problems (1) Acute kidney injury Current Visit: Yes Status: Acute Plan to address problem: Hemodynamic Acute kidney injury superimposed on CKD in the setting of hypotension. Renal function is improving with IV fluids. Monitor renal function. (2) Hypernatremia Current Visit: Yes Status: Acute Plan to address problem: Change IV fluids to 1/2 NS. (3) HTN (hypertension) Current Visit: Yes Status: Acute Qualifiers: Hypertension type: H Plan to address problem: On Cardene drip. Change IV fluids. Start on BP meds through NG tube or Topical. (4) Acute respiratory failure Current Visit: Yes Status: Acute Qualifiers: Respiratory failure complication: hypoxia Qualified Code(s): J96.01 - Acute respiratory failure with hypoxia (5) Encephalopathy Current Visit: Yes Status: Acute
[2017-06-13 14:22] LABS: INR 1.5 (0.87-1.13)
--- NOTE | 2017-06-13 14:54 | Progress Note ---
Assessment and Plan Acute respiratory failure Cont vent support. Likely Sepsis induced and from possible aspiration Sepsis Likely from UTI Patient started on IV Zosn and Vancomycin Check Cultures. Hypotension, Likely from underlying sepsis Briefly required Levophed Now on IV fluid only and resolved Hypertension, accelerated placed on Cardene drip Acute kidney injury Likely from vasomotor neuropathy from sepsis Patient also has history of CKD 3 IV fluids for now and monitor BUN/Cr Nephrology following Hyponatremia Continue IV fluid now and monitor sodium level Type 2 diabetes mellitus Sliding scale of insulin Coverage for now with Accu-Chek every 6 hours DVT prophylaxis on Heparin The high probability of a clinically significant, sudden or life threatening deterioration of the system(s) required my full and direct attention, intervention and personal management. The aggregate critical care time was [35] minutes. This time is in addition to time spent performing reported procedures but includes the following: [x] Data Review and interpretation [x] Patient assessment and monitoring of vital signs [x] Documentation [x] Medication orders and management Subjective Date of service: 06/13/17 Principal diagnosis: Acute Respiratory Failure; Acute Encephalopathy Interval history: Patient seen and examined Currently intubated and sedated Objective - Exam Narrative Exam: General appearance: well-developed, appears stated age, other (on vent FiO2 35%) EENT: ATNC Neck: Present: neck supple, trachea midline Respiratory: Other (coarse breath sounds) Heart: regular, S1S2, no murmurs Gastrointestinal: Present: normoactive bowel sounds, obese. Absent: tenderness , distended Integumentary: no rash Neurologic: other (arousable, not following any command) Musculoskeletal: Present: other (no edema) - Constitutional Vitals: Vital Signs - 12hr 06/13/17 06/13/17 06/13/17 03:00 03:10 03:20 Temperature Pulse Rate 85 80 79 Pulse Rate [ From Monitor] Respiratory 26 H 14 14 Rate Blood Pressure 152/67 176/67 176/67 O2 Sat by Pulse 100 100 100 Oximetry 06/13/17 06/13/17 06/13/17 03:30 03:40 03:42 Temperature 99.4 F Pulse Rate 82 81 Pulse Rate [ From Monitor] Respiratory 14 14 Rate Blood Pressure 188/72 188/72 O2 Sat by Pulse 100 100 Oximetry 06/13/17 06/13/17 06/13/17 03:50 04:00 04:10 Temperature Pulse Rate 78 79 80 Pulse Rate [ From Monitor] Respiratory 16 14 14 Rate Blood Pressure 164/64 152/60 152/60 O2 Sat by Pulse 100 100 100 Oximetry 06/13/17 06/13/17 06/13/17 04:20 04:30 04:40 Temperature Pulse Rate 80 77 82 Pulse Rate [ From Monitor] Respiratory 14 17 14 Rate Blood Pressure 152/60 154/62 152/60 O2 Sat by Pulse 100 100 100 Oximetry 06/13/17 06/13/17 06/13/17 04:50 05:00 05:09 Temperature Pulse Rate 77 77 73 Pulse Rate [ From Monitor] Respiratory 15 20 Rate Blood Pressure 152/60 152/60 124/67 O2 Sat by Pulse 100 100 Oximetry 06/13/17 06/13/17 06/13/17 05:10 05:20 05:30 Temperature Pulse Rate 76 73 74 Pulse Rate [ From Monitor] Respiratory 15 24 22 Rate Blood Pressure 124/67 124/67 122/59 O2 Sat by Pulse 100 100 100 Oximetry 06/13/17 06/13/17 06/13/17 05:36 05:40 05:50 Temperature Pulse Rate 74 75 81 Pulse Rate [ From Monitor] Respiratory 22 16 14 Rate Blood Pressure 122/59 122/59 O2 Sat by Pulse 100 100 100 Oximetry 06/13/17 06/13/17 06/13/17 06:00 06:10 06:20 Temperature Pulse Rate 81 81 82 Pulse Rate [ From Monitor] Respiratory 13 14 13 Rate Blood Pressure 189/75 189/75 189/75 O2 Sat by Pulse 100 100 100 Oximetry 06/13/17 06/13/17 06/13/17 06:30 06:36 06:40 Temperature Pulse Rate 82 81 Pulse Rate [ From Monitor] Respiratory 14 15 14 Rate Blood Pressure 164/71 164/71 O2 Sat by Pulse 100 100 Oximetry 06/13/17 06/13/17 06/13/17 06:50 07:00 07:10 Temperature Pulse Rate 81 82 81 Pulse Rate [ From Monitor] Respiratory 14 14 14 Rate Blood Pressure 164/71 147/67 147/67 O2 Sat by Pulse 100 100 100 Oximetry 06/13/17 06/13/17 06/13/17 07:20 07:30 07:33 Temperature Pulse Rate 80 81 80 Pulse Rate [ From Monitor] Respiratory 14 17 Rate Blood Pressure 147/67 122/65 122/65 O2 Sat by Pulse 100 100 100 Oximetry 06/13/17 06/13/17 06/13/17 07:40 07:50 08:00 Temperature 99.3 F Pulse Rate 78 78 79 Pulse Rate [ From Monitor] Respiratory 22 14 14 Rate Blood Pressure 122/65 147/67 158/73 O2 Sat by Pulse 100 100 100 Oximetry 06/13/17 06/13/17 06/13/17 08:10 08:20 08:30 Temperature Pulse Rate 78 81 80 Pulse Rate [ From Monitor] Respiratory 14 14 14 Rate Blood Pressure 158/73 122/65 165/72 O2 Sat by Pulse 100 100 100 Oximetry 06/13/17 06/13/17 06/13/17 08:40 08:50 09:00 Temperature Pulse Rate 79 80 79 Pulse Rate [ From Monitor] Respiratory 14 14 14 Rate Blood Pressure 165/72 158/73 179/71 O2 Sat by Pulse 100 100 100 Oximetry 06/13/17 06/13/17 06/13/17 09:10 09:20 09:30 Temperature Pulse Rate 80 81 80 Pulse Rate [ From Monitor] Respiratory 14 15 14 Rate Blood Pressure 179/71 179/71 187/81 O2 Sat by Pulse 100 100 100 Oximetry 06/13/17 06/13/17 06/13/17 09:40 09:50 10:00 Temperature Pulse Rate 80 81 80 Pulse Rate [ From Monitor] Respiratory 14 14 14 Rate Blood Pressure 187/81 187/81 139/68 O2 Sat by Pulse 100 100 100 Oximetry 06/13/17 06/13/17 06/13/17 10:10 10:20 10:30 Temperature Pulse Rate 76 75 71 Pulse Rate [ From Monitor] Respiratory 14 14 16 Rate Blood Pressure 139/68 139/68 117/61 O2 Sat by Pulse 100 100 99 Oximetry 06/13/17 06/13/17 06/13/17 10:40 10:50 11:00 Temperature Pulse Rate 75 74 74 Pulse Rate [ From Monitor] Respiratory 14 14 14 Rate Blood Pressure 117/61 117/61 157/64 O2 Sat by Pulse 100 100 98 Oximetry 06/13/17 06/13/17 06/13/17 11:10 11:20 11:30 Temperature Pulse Rate 71 78 76 Pulse Rate [ From Monitor] Respiratory 17 14 25 H Rate Blood Pressure 157/64 157/64 147/70 O2 Sat by Pulse 100 100 100 Oximetry 06/13/17 06/13/17 06/13/17 11:40 11:45 11:50 Temperature Pulse Rate 72 75 76 Pulse Rate [ From Monitor] Respiratory 18 14 Rate Blood Pressure 147/70 147/70 147/70 O2 Sat by Pulse 100 100 100 Oximetry 06/13/17 06/13/17 12:00 14:03 Temperature 98.7 F Pulse Rate 82 78 Pulse Rate [ 79 From Monitor] Respiratory 24 23 Rate Blood Pressure 147/70 145/92 O2 Sat by Pulse 100 99 Oximetry - Labs CBC & Chem 7: 06/14/17 09:00 06/14/17 09:00 Labs: Abnormal lab results 06/12/17 06/13/17 06/13/17 Range/Units 23:40 04:45 04:45 WBC 15.3 H (4.5-11.0) K/mm3 RBC 3.53 L (3.65-5.03) M/mm3 Hgb 8.8 L (10.1-14.3) gm/dl Hct 26.8 L (30.3-42.9) % MCV 76 L (79-97) fl MCH 25 L (28-32) pg Lymph % (Auto) 4.8 L (13.4-35.0) % Lymph # 0.7 L (1.2-5.4) K/mm3 Seg Neutrophils % 89.4 H (40.0-70.0) % Seg Neutrophils # 13.7 H (1.8-7.7) K/mm3 PT (12.2-14.9) Sec. INR (0.87-1.13) POC ABG pH (7.35-7.45) POC ABG pCO2 (35-45) POC ABG pO2 (80-105) Sodium 150 H (137-145) mmol/L Chloride 115.1 H (98-107) mmol/L BUN 59 H (7-17) mg/dL Creatinine 1.9 H (0.7-1.2) mg/dL Glucose 156 H (65-100) mg/dL POC Glucose 231 H (70-105) C-Reactive Protein (0.00-1.30) mg/dL Albumin 2.5 L (3.9-5) g/dL 06/13/17 06/13/17 06/13/17 Range/Units 04:45 05:09 05:29 WBC (4.5-11.0) K/mm3 RBC (3.65-5.03) M/mm3 Hgb (10.1-14.3) gm/dl Hct (30.3-42.9) % MCV (79-97) fl MCH (28-32) pg Lymph % (Auto) (13.4-35.0) % Lymph # (1.2-5.4) K/mm3 Seg Neutrophils % (40.0-70.0) % Seg Neutrophils # (1.8-7.7) K/mm3 PT (12.2-14.9) Sec. INR (0.87-1.13) POC ABG pH 7.467 H (7.35-7.45) POC ABG pCO2 30.7 L (35-45) POC ABG pO2 106 H (80-105) Sodium (137-145) mmol/L Chloride (98-107) mmol/L BUN (7-17) mg/dL Creatinine (0.7-1.2) mg/dL Glucose (65-100) mg/dL POC Glucose 185 H (70-105) C-Reactive Protein 8.10 H (0.00-1.30) mg/dL Albumin (3.9-5) g/dL 06/13/17 06/13/17 Range/Units 12:28 14:00 WBC (4.5-11.0) K/mm3 RBC (3.65-5.03) M/mm3 Hgb (10.1-14.3) gm/dl Hct (30.3-42.9) % MCV (79-97) fl MCH (28-32) pg Lymph % (Auto) (13.4-35.0) % Lymph # (1.2-5.4) K/mm3 Seg Neutrophils % (40.0-70.0) % Seg Neutrophils # (1.8-7.7) K/mm3 PT 18.1 H (12.2-14.9) Sec. INR 1.50 H (0.87-1.13) POC ABG pH (7.35-7.45) POC ABG pCO2 (35-45) POC ABG pO2 (80-105) Sodium (137-145) mmol/L Chloride (98-107) mmol/L BUN (7-17) mg/dL Creatinine (0.7-1.2) mg/dL Glucose (65-100) mg/dL POC Glucose 157 H (70-105) C-Reactive Protein (0.00-1.30) mg/dL Albumin (3.9-5) g/dL
[2017-06-13] MEDS: NACL 0.45% 1000 ML 1,000 ML IV SCH (15:55)
[2017-06-13 17:53] LABS: ISTAT Base Excess -1; ISTAT PCO2 33.6 (35-45); ISTAT PH 7.443 (7.35-7.45); ISTAT PO2 92 (80-105); ISTAT SO2 98; ISTAT TCO2 24
--- NOTE | 2017-06-13 20:17 | Consultation ---
PULMONARY CRITICAL CARE CONSULT NOTE CONSULTING PHYSICIAN: Dr. Santiago. REASON FOR CONSULTATION: Altered mental status and respiratory failure, on mechanical ventilator support. CHIEF COMPLAINT AND HISTORY OF PRESENT ILLNESS: The patient was brought into the Emergency Room secondary to altered mental status. Apparently, she was found unresponsive at home, unclear how long. She was last seen yesterday. He had found her in a wheelchair. The son indicated she had been altered since earlier in the morning. He mentioned she was alert the day before. The patient did not qualify for tPA. She was brought into the Emergency Room. In the Emergency Room, she was hypotensive, essentially she was unresponsive. She was intubated both for airway protection and to assist with ventilation and we were asked to stop by and see her. By the time I did come by, she had been stabilized. The central venous access had been placed and she was beginning to move a little bit. I do not have any history of emesis or overt aspiration. I cannot rule that out. With regards to her tobacco use/abuse history, actually it is unclear if she is a smoker. The above is as much of the history of presentation as I have. PAST MEDICAL HISTORY: Hypertension, diabetes, chronic kidney disease and arthritis. PAST SURGICAL HISTORY: Unknown. MEDICATIONS: She was on at the time I stopped by to see her according to the medication administration record included the following: Tylenol 650 mg p.o. q.4 hours p.r.n. mild pain. All p.o. meds will be via the feeding tube. Plavix 75 mg p.o. daily, Lovenox 40 mg subcutaneous daily, Dilaudid 0.5 mg IV q.3 hours p.r.n. severe pain, insulin via sliding scale, p.r.n. milk of magnesia, nicardipine drip had been going earlier and it has been stopped now, Levophed drip had been going earlier, it has been stopped now, Zofran 4 mg IV q. 8 hours p.r.n. nausea and vomiting, Protonix 40 mg p.o. daily, Zosyn 4.5 grams IV q. 8 hours, p.r.n. tramadol, and vancomycin she received a 1 gram dose. ALLERGIES: No known drug allergies. DIET: Petite lady. Acute weight loss or gain history is unknown. FAMILY AND SOCIAL HISTORY: Apparently lives in the community. Alcohol, tobacco, illicit drug use or abuse history is unknown. Family history is otherwise unknown. REVIEW OF SYSTEMS: Unobtainable secondary to the patient's medical and mental condition. Since she has been here, no gross hematochezia or melena. No gross hematuria, no hematemesis, no witnessed seizures. PHYSICAL EXAMINATION: VITAL SIGNS: At presentation in the Emergency Room revealed vital signs shows that she was afebrile, temperature was 97.7 degrees Fahrenheit rectally with a pulse of 94, respiratory rate of 18, blood pressure 131/82 and oxygen sats were 100%. She is currently on the assist control mode of ventilation, tidal volumes 450, rate of 14, PEEP of 5. HEAD, EYES, EARS, NOSE AND THROAT: Pupils were equal, round, about 3-4 mm, reactive to light. Extraocular muscle movements could not be assessed. Endotracheal tube was in place, taped at the lips around 23 cm. LUNGS: Auscultation of both lung strauss revealed scant bilateral rales. No active wheezing. HEART: Heart sounds 1 and 2 were heard. They were regular in rate and rhythm at time of my evaluation. ABDOMEN: Soft, full, bowel sounds are positive, nontender. EXTREMITIES: Without overt digital clubbing, cyanosis or pedal edema. The left hand appears to have some deep pigmented skin like post alcantar. NEUROLOGICAL: She I believe was just recovering from the medications given for sedation. When I saw her, she had some spontaneous movements to noxious stimuli in extremities. LABORATORY DATA: From my review are as follows: Admission white cell count 14,900 with hemoglobin of 10.1; hematocrit of 31.9 and platelet count 396. No band forms are reported. INR 1.30. ABG showed a pH of 7.52, pCO2 of 31, pO2 of 389. That was on a 100% FiO2. Serum sodium was 145, potassium 4.3, chloride 106, bicarbonate 20, BUN 75, creatinine 2.5 and glucose of 289. Lactic acid level was within normal limits. Liver function tests essentially within normal limits. Troponin slightly elevated at 0.032 and albumin 2.6. TSH within normal limits. Urinalysis showed large leukocyte esterase and 179 white cells per high-power field. Aspirin, Tylenol, alcohol level were all within expected limits. Blood cultures were drawn, both no growth to date. IMAGING: Radiographic studies are being reviewed. I am pulling up the films, so I have reviewed the radiologist's interpretation. A CT scan was done of the cervical spine. It showed no acute fracture, just mild degenerative changes consistent with her age. A CT of the head was also done. It was reported as large ill-defined area of low attenuation in the right posterior temporoparietal region. It may be an acute, subacute or chronic ischemia. MRI recommended. Chest x-ray was done, I am waiting on the film. The report on the chest x-ray, the ET tube was a little bit right main stem and was recommended to be withdrawn. I do believe that has been done. I did hear bilateral breath sounds when I examined her. ASSESSMENT AND PLAN: We have an elderly lady apparently with cerebrovascular accident. We will continue with neuro imaging to try and figure out the acuity of this event. Respiratory-jensen, she will remain on mechanical ventilatory support overnight. She certainly will have to meet weaning criteria and hopefully her mental status will not be a rate limiting factor to extubation. Aspiration precautions and ventilator bundles will be addressed daily. Bronchodilators will be scheduled initially and then p.r.n. thereafter. Oxygen will be weaned to keep sats greater than or equal to about 90% to 94%, and we will see how she does going forward. From a cardiovascular standpoint, blood pressure is much better now. Antihypertensive medication will be introduced as necessary. Cardiac enzymes are really unremarkable. We will follow her clinically from a GI and nutritional standpoint. Enteral nutrition will be the feeding modality of choice. She is appropriately on GI prophylaxis. Aspiration precautions will be maintained. From a renal standpoint, no major electrolyte abnormalities really. I note the BUN and creatinine, it does appear prerenal to a certain extent. We will continue gentle IV fluid hydration. I will get urine lytes and calculate fractional excretion of sodium. Nephrology evaluation will be at the behest of the attending physician. From a central nervous system standpoint, certainly, she will remain on mechanical ventilator. Neurology evaluation will be placed and secondary disease prevention as necessary will be instituted. I will defer to them for now. From a general and hospital healthcare maintenance standpoint, she is appropriately on gastrointestinal prophylaxis as well as deep venous thrombosis prophylaxis. Flu and pneumonia vaccination will be per protocol. Thank you very much for the consult, Dr. Owen and Dr. Santiago. We will follow along. We will make further recommendations as picture progresses/becomes clearer. At this time, I have spent about 30-35 minutes of critical care time without overlap and excluding any procedural time that may be necessary. She is critically ill on life-sustaining interventions, including mechanical ventilatory support and at high risk for further deterioration, including . JOB# [id number] JACKY/CARI
[2017-06-13] MEDS: CARDENE 50 MG in NACL 0.9% 250ML 230 ML IV SCH (22:42)
[2017-06-14] MEDS: ZOSYN/NS 2.25 GM/50ML 2.25 GM/50 ML BAG IV SCH ×4 (06:38→23:31)
[2017-06-14] MEDS: NACL 0.45% 1000 ML 1,000 ML IV SCH ×3 (06:39→23:15)
[2017-06-14 09:17] LABS: Hematocrit 25.8 % (30.3-42.9); Hemoglobin 8.1 gm/dl (10.1-14.3); Mean Corpuscular HGB Conc 31 % (30-34); Mean Corpuscular Volume 78 fl (79-97); Platelet Count 271 K/mm3 (140-440); Red Blood Count 3.29 M/mm3 (3.65-5.03); Red Cell Distribution Width 15.8 % (13.2-15.2); White Blood Count 14.2 K/mm3 (4.5-11.0)
[2017-06-14] MEDS: PROTONIX PO SCH (09:23)
[2017-06-14] MEDS: LOVENOX SUB-Q SCH (09:23)
[2017-06-14] MEDS: PLAVIX PO SCH (09:24)
--- NOTE | 2017-06-14 09:26 | XRay Report ---
Single view chest: Compared to 06/13/17. History: Followup of respiratory failure. Findings: Borderline cardiomegaly. Stable support system. Bilateral pleural effusion. No consolidation. Impression: Bilateral pleural effusion. No acute lung changes.
[2017-06-14 09:29] LABS: BUN/Creatinine Ratio 25.29; Calcium 8.3 mg/dL (8.4-10.2); Chloride 109.4 mmol/L (98-107); Potassium 3.5 mmol/L (3.6-5.0)
[2017-06-14 09:31] LABS: Mean Corpuscular Hemoglobin 25 pg (28-32)
[2017-06-14] MEDS: VANCOMYCIN/NS 1 GM/250 ML 1 GM/250 ML BAG IV SCH (10:43)
--- NOTE | 2017-06-14 11:35 | Consultation ---
History of Present Illness - Reason for Consult Consult date: 06/14/17 stroke - History of Present Illness spoke to hospitalist and gave my input and I have dictated a full note spoke to the son and went over the recent hx this appears to be hypoglycemia recurrent episodes Past History Past Medical History: diabetes, hypertension Medications and Allergies Allergies Allergy/AdvReac Type Severity Reaction Status Date / Time No Known Allergies Allergy Verified 03/31/14 10:36 Home Medications Medication Instructions Recorded Confirmed Last Taken Type Clopidogrel [Plavix] 75 mg PO QDAY 06/12/17 06/12/17 Unknown History Insulin Aspart [NovoLOG Flexpen] 16 units SQ BID 06/12/17 06/12/17 Unknown History Lisinopril/Hydrochlorothiazide 1 tab PO QDAY 06/12/17 06/12/17 Unknown History [Zestoretic 20-25 mg] Pantoprazole [Protonix] 40 mg PO QDAY 06/12/17 06/12/17 Unknown History traMADol [Ultram] 50 mg PO Q6HR PRN 06/12/17 06/12/17 Unknown History Active Meds: Active Medications Acetaminophen (Tylenol) 650 mg PO Q4H PRN PRN Reason: Pain MILD(1-3)/Fever >100.5/PAN Lipase/Protease/Amylase (Pancreaze Dr 10,500 Unit) 1 each FEEDTUBE PRN PRN PRN Reason: For Clogged Feeding Tube Bisacodyl (Dulcolax) 10 mg WI QDAY PRN PRN Reason: Constipation unrelieved by MOM Clopidogrel Bisulfate (Plavix) 75 mg PO QDAY [facility] Last Admin: 06/14/17 09:24 Dose: 75 mg Dextrose (D50w (25gm)) 50 ml IV PRN PRN PRN Reason: Hypoglycemia Enoxaparin Sodium (Lovenox) 30 mg SUB-Q QDAY [facility] Last Admin: 06/14/17 09:23 Dose: 30 mg Hydromorphone HCl (Dilaudid) 0.5 mg IV Q3H PRN PRN Reason: Pain , Severe (7-10) Last Admin: 06/13/17 06:36 Dose: 0.5 mg Hydrophilic Ointment (Vaseline Lip Therapy) 1 applic TP Q2HR PRN PRN Reason: Dry Lips Phenylephrine HCl 100 mg/ (Sodium Chloride) 110 mls @ 0 mls/hr IV TITRATE [facility] Norepinephrine (Levophed Drip 4 Mg/Ns 250 Ml) 4 mg in 250 mls @ 7.5 mls/hr IV TITR ELIAZAR; 2 MCG/MIN PRN Reason: Protocol Last Titration: 06/12/17 13:29 Dose: 0 mcg/min, 0 mls/hr Nicardipine HCl 50 mg/ Sodium (Chloride) 250 mls @ 25 mls/hr IV TITR ELIAZAR; 5 MG/ HR PRN Reason: Protocol Last Titration: 06/14/17 09:30 Dose: 0 mg/hr, 0 mls/hr Vancomycin HCl (Vancomycin/Ns 1 Gm/250 Ml) 1 gm in 250 mls @ 166.667 mls/hr IV Q24HR [facility] Last Admin: 06/14/17 10:43 Dose: 166.667 mls/hr Piperacillin Sod/Tazobactam Sod (Zosyn/Ns 2.25 Gm/50ml) 2.25 gm in 50 mls @ 100 mls/hr IV Q6HR [facility] Last Admin: 06/14/17 06:38 Dose: 100 mls/hr Sodium Chloride (Nacl 0.45% 1000 Ml) 1,000 mls @ 125 mls/hr IV DIRECT ELIAZAR Last Admin: 06/14/17 09:25 Dose: 125 mls/hr Insulin Human Regular (Novolin R) 0 units SUB-Q Q6HR ELIAZAR PRN Reason: Protocol Last Admin: 06/14/17 06:48 Dose: 3 units Magnesium Hydroxide (Milk Of Magnesia) 30 ml PO Q4H PRN PRN Reason: Constipation Multi-Ingred Cream/Lotion/Oil/Oint (Artificial Tears Ophth Oint) 1 applic OU Q4HR PRN PRN Reason: Dry Eye(s) Ondansetron HCl (Zofran) 4 mg IV Q8H PRN PRN Reason: N/V unrelieved by Reglan Pantoprazole Sodium (Protonix) 40 mg PO QDAY [facility] Last Admin: 06/14/17 09:23 Dose: 40 mg Simple Syrup (Simple Syrup) 15 ml FEEDTUBE PRN PRN PRN Reason: Hypoglycemia Simple Syrup (Simple Syrup) 30 ml FEEDTUBE PRN PRN PRN Reason: Hypoglycemia Sodium Bicarbonate (Sodium Bicarbonate) 325 mg FEEDTUBE PRN PRN PRN Reason: For Clogged Feeding Tube Tramadol HCl (Ultram) 50 mg PO Q6HR PRN PRN Reason: Pain Vancomycin HCl (Vancomycin Pharmacy To Dose) 1 each IV PKCONSULT ELIAZAR PRN Reason: Protocol Exam - Constitutional Vitals: Temp Pulse Resp BP Pulse Ox 98.1 F 68 26 H 159/72 99 06/14/17 08:30 06/14/17 10:40 06/14/17 10:40 06/14/17 10:40 06/14/17 10:40 Results - Labs CBC & Chem 7: 06/14/17 09:00 06/14/17 09:00 Labs: Abnormal lab results 06/13/17 06/13/17 06/13/17 Range/Units 04:45 12:28 14:00 WBC (4.5-11.0) K/mm3 RBC (3.65-5.03) M/mm3 Hgb (10.1-14.3) gm/dl Hct (30.3-42.9) % MCV (79-97) fl MCH (28-32) pg RDW (13.2-15.2) % PT 18.1 H (12.2-14.9) Sec. INR 1.50 H (0.87-1.13) POC ABG pCO2 (35-45) Potassium (3.6-5.0) mmol/L Chloride (98-107) mmol/L BUN (7-17) mg/dL Creatinine (0.7-1.2) mg/dL Glucose (65-100) mg/dL POC Glucose 157 H (70-105) Calcium (8.4-10.2) mg/dL C-Reactive Protein 8.10 H (0.00-1.30) mg/dL 06/13/17 06/13/17 06/13/17 Range/Units 16:57 17:41 23:29 WBC (4.5-11.0) K/mm3 RBC (3.65-5.03) M/mm3 Hgb (10.1-14.3) gm/dl Hct (30.3-42.9) % MCV (79-97) fl MCH (28-32) pg RDW (13.2-15.2) % PT (12.2-14.9) Sec. INR (0.87-1.13) POC ABG pCO2 33.6 L (35-45) Potassium (3.6-5.0) mmol/L Chloride (98-107) mmol/L BUN (7-17) mg/dL Creatinine (0.7-1.2) mg/dL Glucose (65-100) mg/dL POC Glucose 153 H 133 H (70-105) Calcium (8.4-10.2) mg/dL C-Reactive Protein (0.00-1.30) mg/dL 06/14/17 06/14/17 06/14/17 Range/Units 05:26 09:00 09:00 WBC 14.2 H (4.5-11.0) K/mm3 RBC 3.29 L (3.65-5.03) M/mm3 Hgb 8.1 L (10.1-14.3) gm/dl Hct 25.8 L (30.3-42.9) % MCV 78 L (79-97) fl MCH 25 L (28-32) pg RDW 15.8 H (13.2-15.2) % PT (12.2-14.9) Sec. INR (0.87-1.13) POC ABG pCO2 (35-45) Potassium 3.5 L (3.6-5.0) mmol/L Chloride 109.4 H (98-107) mmol/L BUN 43 H (7-17) mg/dL Creatinine 1.7 H (0.7-1.2) mg/dL Glucose 238 H (65-100) mg/dL POC Glucose 229 H (70-105) Calcium 8.3 L (8.4-10.2) mg/dL C-Reactive Protein (0.00-1.30) mg/dL
--- NOTE | 2017-06-14 11:38 | Progress Note ---
Assessment and Plan - Patient Problems (1) Acute kidney injury Current Visit: Yes Status: Acute Plan to address problem: Hemodynamic Acute kidney injury superimposed on CKD in the setting of hypotension. Renal function continues to improve. Continue IV fluids. Monitor renal function. (2) Hypernatremia Current Visit: Yes Status: Acute Plan to address problem: Improving with 1/2 NS. (3) HTN (hypertension) Current Visit: Yes Status: Acute Qualifiers: Hypertension type: H Plan to address problem: On Cardene drip. Start on Amlodipine. Monitor BP. (4) Acute respiratory failure Current Visit: Yes Status: Acute Qualifiers: Respiratory failure complication: hypoxia Qualified Code(s): J96.01 - Acute respiratory failure with hypoxia (5) Encephalopathy Current Visit: Yes Status: Acute Subjective Date of service: 06/14/17 Principal diagnosis: Acute Respiratory Failure; Acute Encephalopathy Interval history: Patient remain on the vent. Objective - Vital Signs Vital signs: Vital Signs - 12hr 06/13/17 06/13/17 06/13/17 23:40 23:48 23:58 Temperature 99.4 F Pulse Rate 79 78 Pulse Rate [ From Monitor] Respiratory 16 Rate Blood Pressure 162/74 O2 Sat by Pulse 100 Oximetry 06/14/17 06/14/17 06/14/17 00:00 00:20 00:32 Temperature Pulse Rate 76 76 68 Pulse Rate [ 76 From Monitor] Respiratory 24 23 Rate Blood Pressure 140/67 140/63 140/63 O2 Sat by Pulse 100 100 100 Oximetry 06/14/17 06/14/17 06/14/17 00:40 01:00 01:20 Temperature Pulse Rate 67 70 63 Pulse Rate [ From Monitor] Respiratory 18 16 26 H Rate Blood Pressure 140/63 159/60 177/66 O2 Sat by Pulse 99 99 Oximetry 06/14/17 06/14/17 06/14/17 01:40 02:00 02:20 Temperature Pulse Rate 74 73 80 Pulse Rate [ From Monitor] Respiratory 22 15 19 Rate Blood Pressure 167/67 162/70 157/69 O2 Sat by Pulse 100 100 100 Oximetry 06/14/17 06/14/17 06/14/17 02:40 03:00 03:20 Temperature Pulse Rate 71 71 Pulse Rate [ From Monitor] Respiratory 23 12 Rate Blood Pressure 162/70 122/61 122/61 O2 Sat by Pulse 100 100 100 Oximetry 06/14/17 06/14/17 06/14/17 03:40 04:00 04:20 Temperature 98.9 F Pulse Rate 71 70 70 Pulse Rate [ 70 From Monitor] Respiratory 25 H 21 24 Rate Blood Pressure 149/70 137/63 156/69 O2 Sat by Pulse 98 100 100 Oximetry 06/14/17 06/14/17 06/14/17 04:40 04:42 05:00 Temperature Pulse Rate 70 73 73 Pulse Rate [ From Monitor] Respiratory 17 18 Rate Blood Pressure 149/65 156/69 141/70 O2 Sat by Pulse 100 100 99 Oximetry 06/14/17 06/14/17 06/14/17 05:20 05:40 06:00 Temperature Pulse Rate 70 69 74 Pulse Rate [ From Monitor] Respiratory 17 20 29 H Rate Blood Pressure 150/67 148/63 133/64 O2 Sat by Pulse 99 99 99 Oximetry 06/14/17 06/14/17 06/14/17 06:20 06:40 07:00 Temperature Pulse Rate 75 75 68 Pulse Rate [ From Monitor] Respiratory 19 24 21 Rate Blood Pressure 133/64 153/71 132/61 O2 Sat by Pulse 99 100 100 Oximetry 06/14/17 06/14/17 06/14/17 07:20 07:40 07:47 Temperature Pulse Rate 66 70 Pulse Rate [ 66 From Monitor] Respiratory 20 24 29 H Rate Blood Pressure 137/65 134/60 O2 Sat by Pulse 99 100 Oximetry 06/14/17 06/14/17 06/14/17 07:55 08:00 08:20 Temperature Pulse Rate 66 64 67 Pulse Rate [ From Monitor] Respiratory 26 H 18 Rate Blood Pressure 134/60 124/62 126/59 O2 Sat by Pulse 100 98 100 Oximetry 06/14/17 06/14/17 06/14/17 08:30 08:40 09:00 Temperature 98.1 F Pulse Rate 65 69 Pulse Rate [ From Monitor] Respiratory 26 H 23 Rate Blood Pressure 126/63 134/64 O2 Sat by Pulse 98 100 Oximetry 06/14/17 06/14/17 06/14/17 09:20 09:40 10:00 Temperature Pulse Rate 67 66 68 Pulse Rate [ From Monitor] Respiratory 25 H 16 28 H Rate Blood Pressure 134/64 151/69 161/73 O2 Sat by Pulse 100 99 Oximetry 06/14/17 06/14/17 10:20 10:40 Temperature Pulse Rate 67 68 Pulse Rate [ From Monitor] Respiratory 23 26 H Rate Blood Pressure 150/72 159/72 O2 Sat by Pulse 100 99 Oximetry - General Appearance General appearance: well-developed, appears stated age, other (on vent, FiO2 35% ) EENT: ATNC, PERRL Neck: supple Respiratory: Present: Clear to Ascultation Cardiology: regular, S1S2, no murmurs Gastrointestinal: normoactive bowel sounds, no tenderness, no distended, obese Integumentary: no rash Neurologic: other (not following any command) Musculoskeletal: other (no edema) - Lab 06/14/17 09:00 06/14/17 09:00 Most recent lab results ABG pH TNR 06/12/17 12:55 ABG pCO2 TNR 06/12/17 12:55 ABG pO2 TNR 06/12/17 12:55 ABG HCO3 TNR 06/12/17 12:55 ABG O2 Saturation TNR 06/12/17 12:55 Calcium 8.3 mg/dL (8.4-10.2) L 06/14/17 09:00
--- NOTE | 2017-06-14 12:19 | Progress Note ---
Assessment and Plan Acute respiratory failure Cont vent support. Likely Sepsis induced and from possible aspiration wean off as tolerated Sepsis Likely from UTI Patient started on IV Zosn and Vancomycin Check Cultures. Hypotension, Likely from underlying sepsis Briefly required Levophed Now on IV fluid only and resolved Hypertension, accelerated placed on Cardene drip Acute kidney injury Likely from vasomotor neuropathy from sepsis Patient also has history of CKD 3 IV fluids for now and monitor BUN/Cr Nephrology following Hyponatremia, improved Continue IV fluid now and monitor sodium level Type 2 diabetes mellitus Sliding scale of insulin Coverage for now with Accu-Chek every 6 hours DVT prophylaxis on Heparin The high probability of a clinically significant, sudden or life threatening deterioration of the system(s) required my full and direct attention, intervention and personal management. The aggregate critical care time was [35] minutes. This time is in addition to time spent performing reported procedures but includes the following: [x] Data Review and interpretation [x] Patient assessment and monitoring of vital signs [x] Documentation [x] Medication orders and management Subjective Date of service: 06/14/17 Principal diagnosis: Acute Respiratory Failure; Acute Encephalopathy Interval history: Patient seen and examined Currently intubated but tolerating SBT Objective - Exam Narrative Exam: General appearance: well-developed, appears stated age, other (on vent FiO2 35%) EENT: ATNC Neck: Present: neck supple, trachea midline Respiratory: Other (coarse breath sounds) Heart: regular, S1S2, no murmurs Gastrointestinal: Present: normoactive bowel sounds, obese. Absent: tenderness , distended Integumentary: no rash Neurologic: other (arousable, follow command) Musculoskeletal: Present: other (no edema) - Constitutional Vitals: Vital Signs - 12hr 06/14/17 06/14/17 06/14/17 00:20 00:32 00:40 Temperature Pulse Rate 76 68 67 Pulse Rate [ From Monitor] Respiratory 23 18 Rate Blood Pressure 140/63 140/63 140/63 O2 Sat by Pulse 100 100 Oximetry 06/14/17 06/14/17 06/14/17 01:00 01:20 01:40 Temperature Pulse Rate 70 63 74 Pulse Rate [ From Monitor] Respiratory 16 26 H 22 Rate Blood Pressure 159/60 177/66 167/67 O2 Sat by Pulse 99 99 100 Oximetry 06/14/17 06/14/17 06/14/17 02:00 02:20 02:40 Temperature Pulse Rate 73 80 71 Pulse Rate [ From Monitor] Respiratory 15 19 23 Rate Blood Pressure 162/70 157/69 162/70 O2 Sat by Pulse 100 100 100 Oximetry 06/14/17 06/14/17 06/14/17 03:00 03:20 03:40 Temperature Pulse Rate 71 71 Pulse Rate [ From Monitor] Respiratory 12 25 H Rate Blood Pressure 122/61 122/61 149/70 O2 Sat by Pulse 100 100 98 Oximetry 06/14/17 06/14/17 06/14/17 04:00 04:20 04:40 Temperature 98.9 F Pulse Rate 70 70 70 Pulse Rate [ 70 From Monitor] Respiratory 21 24 17 Rate Blood Pressure 137/63 156/69 149/65 O2 Sat by Pulse 100 100 100 Oximetry 06/14/17 06/14/17 06/14/17 04:42 05:00 05:20 Temperature Pulse Rate 73 73 70 Pulse Rate [ From Monitor] Respiratory 18 17 Rate Blood Pressure 156/69 141/70 150/67 O2 Sat by Pulse 100 99 99 Oximetry 06/14/17 06/14/17 06/14/17 05:40 06:00 06:20 Temperature Pulse Rate 69 74 75 Pulse Rate [ From Monitor] Respiratory 20 29 H 19 Rate Blood Pressure 148/63 133/64 133/64 O2 Sat by Pulse 99 99 99 Oximetry 06/14/17 06/14/17 06/14/17 06:40 07:00 07:20 Temperature Pulse Rate 75 68 66 Pulse Rate [ From Monitor] Respiratory 24 21 20 Rate Blood Pressure 153/71 132/61 137/65 O2 Sat by Pulse 100 100 99 Oximetry 06/14/17 06/14/17 06/14/17 07:40 07:47 07:55 Temperature Pulse Rate 70 66 Pulse Rate [ 66 From Monitor] Respiratory 24 29 H Rate Blood Pressure 134/60 134/60 O2 Sat by Pulse 100 100 Oximetry 06/14/17 06/14/17 06/14/17 08:00 08:20 08:30 Temperature 98.1 F Pulse Rate 64 67 Pulse Rate [ From Monitor] Respiratory 26 H 18 Rate Blood Pressure 124/62 126/59 O2 Sat by Pulse 98 100 Oximetry 06/14/17 06/14/17 06/14/17 08:40 09:00 09:20 Temperature Pulse Rate 65 69 67 Pulse Rate [ From Monitor] Respiratory 26 H 23 25 H Rate Blood Pressure 126/63 134/64 134/64 O2 Sat by Pulse 98 100 Oximetry 06/14/17 06/14/17 06/14/17 09:40 10:00 10:20 Temperature Pulse Rate 66 68 67 Pulse Rate [ From Monitor] Respiratory 16 28 H 23 Rate Blood Pressure 151/69 161/73 150/72 O2 Sat by Pulse 100 99 100 Oximetry 06/14/17 06/14/17 10:40 12:10 Temperature Pulse Rate 68 69 Pulse Rate [ From Monitor] Respiratory 26 H 22 Rate Blood Pressure 159/72 173/72 O2 Sat by Pulse 99 100 Oximetry - Labs CBC & Chem 7: 06/14/17 09:00 06/14/17 09:00 Labs: Abnormal lab results 06/13/17 06/13/17 06/13/17 Range/Units 04:45 12:28 14:00 WBC (4.5-11.0) K/mm3 RBC (3.65-5.03) M/mm3 Hgb (10.1-14.3) gm/dl Hct (30.3-42.9) % MCV (79-97) fl MCH (28-32) pg RDW (13.2-15.2) % PT 18.1 H (12.2-14.9) Sec. INR 1.50 H (0.87-1.13) POC ABG pCO2 (35-45) Potassium (3.6-5.0) mmol/L Chloride (98-107) mmol/L BUN (7-17) mg/dL Creatinine (0.7-1.2) mg/dL Glucose (65-100) mg/dL POC Glucose 157 H (70-105) Calcium (8.4-10.2) mg/dL C-Reactive Protein 8.10 H (0.00-1.30) mg/dL 06/13/17 06/13/17 06/13/17 Range/Units 16:57 17:41 23:29 WBC (4.5-11.0) K/mm3 RBC (3.65-5.03) M/mm3 Hgb (10.1-14.3) gm/dl Hct (30.3-42.9) % MCV (79-97) fl MCH (28-32) pg RDW (13.2-15.2) % PT (12.2-14.9) Sec. INR (0.87-1.13) POC ABG pCO2 33.6 L (35-45) Potassium (3.6-5.0) mmol/L Chloride (98-107) mmol/L BUN (7-17) mg/dL Creatinine (0.7-1.2) mg/dL Glucose (65-100) mg/dL POC Glucose 153 H 133 H (70-105) Calcium (8.4-10.2) mg/dL C-Reactive Protein (0.00-1.30) mg/dL 06/14/17 06/14/17 06/14/17 Range/Units 05:26 09:00 09:00 WBC 14.2 H (4.5-11.0) K/mm3 RBC 3.29 L (3.65-5.03) M/mm3 Hgb 8.1 L (10.1-14.3) gm/dl Hct 25.8 L (30.3-42.9) % MCV 78 L (79-97) fl MCH 25 L (28-32) pg RDW 15.8 H (13.2-15.2) % PT (12.2-14.9) Sec. INR (0.87-1.13) POC ABG pCO2 (35-45) Potassium 3.5 L (3.6-5.0) mmol/L Chloride 109.4 H (98-107) mmol/L BUN 43 H (7-17) mg/dL Creatinine 1.7 H (0.7-1.2) mg/dL Glucose 238 H (65-100) mg/dL POC Glucose 229 H (70-105) Calcium 8.3 L (8.4-10.2) mg/dL C-Reactive Protein (0.00-1.30) mg/dL 06/14/17 Range/Units 11:53 WBC (4.5-11.0) K/mm3 RBC (3.65-5.03) M/mm3 Hgb (10.1-14.3) gm/dl Hct (30.3-42.9) % MCV (79-97) fl MCH (28-32) pg RDW (13.2-15.2) % PT (12.2-14.9) Sec. INR (0.87-1.13) POC ABG pCO2 (35-45) Potassium (3.6-5.0) mmol/L Chloride (98-107) mmol/L BUN (7-17) mg/dL Creatinine (0.7-1.2) mg/dL Glucose (65-100) mg/dL POC Glucose 243 H (70-105) Calcium (8.4-10.2) mg/dL C-Reactive Protein (0.00-1.30) mg/dL
[2017-06-14 12:21] LABS: ISTAT Base Excess -3; ISTAT HCO3 21.3; ISTAT PCO2 32.3 (35-45); ISTAT PH 7.427 (7.35-7.45); ISTAT PO2 117 (80-105); ISTAT SO2 99; ISTAT TCO2 22
--- NOTE | 2017-06-14 13:42 | Progress Note ---
Assessment and Plan (1) Acute respiratory failure Current Visit: Yes Status: Acute Qualifiers: Respiratory failure complication: hypoxia Qualified Code(s): J96.01 - Acute respiratory failure with hypoxia Plan to address problem: - continue bronchodilators and pulmonary toilet - continue aspiration precautions / address VAP bundle daily - wean oxygen for O2 Sats > 94% - extubate - prn BIPAP (2) Hypertensive urgency Current Visit: Yes Status: Acute Plan to address problem: - resumed cardene drip - will continue to up-titrate oral antihypertensive medication doses (3) Sepsis Current Visit: Yes Status: Acute Qualifiers: Sepsis type: sepsis due to unspecified organism Qualified Code(s): A41.9 - Sepsis, unspecified organism Plan to address problem: - continue empiric AB's - follow C&S results - continue volume resuscitation re: MURALI / IVVD - continue other care as above (4) Acute kidney injury Current Visit: Yes Status: Acute Plan to address problem: - continue volume resuscitation - follow I's & O's - correct electrolytes as necessary - treat UTI - will defer to nephrology otherwise - improving and non oliguric (5) Encephalopathy Current Visit: Yes Status: Acute Plan to address problem: - unclear baseline mental status but per history this is an acute encephalopathy - CT brain reviewed - will order MRI once more stable - will get neurology consultation - improved (6) Type 2 diabetes mellitus Current Visit: No Status: Chronic Qualifiers: Diabetes mellitus complication status: with kidney complications Diabetes mellitus complication detail: D Diabetic retinopathy severity: D Proliferative retinopathy type: P Diabetes mellitus macular edema: D Diabetes mellitus snf insulin use: D Laterality: L Chronic kidney disease stage: C Plan to address problem: - continue SSI (7) Discharge planning issues Current Visit: Yes Status: Acute Plan to address problem: - remains critically ill on life sustaining interventions including MVS and cardene drip; at risk for further deterioration including deasth ....30' CCT Subjective Date of service: 06/14/17 Principal diagnosis: Acute Respiratory Failure; Acute Encephalopathy Interval history: Seen and examined at bedside; 24 hour events reviewed; nursing and respiratory care staff consulted; no adverse overnight events reported to me; resting peacefully in bed; alert; denies acute chest pains or increased SOB; No N/V/F/C ; tolerating SBT very well today Objective Vital Signs - 12hr 06/14/17 06/14/17 06/14/17 02:00 02:20 02:40 Temperature Pulse Rate 73 80 71 Pulse Rate [ From Monitor] Respiratory 15 19 23 Rate Blood Pressure 162/70 157/69 162/70 O2 Sat by Pulse 100 100 100 Oximetry 06/14/17 06/14/17 06/14/17 03:00 03:20 03:40 Temperature Pulse Rate 71 71 Pulse Rate [ From Monitor] Respiratory 12 25 H Rate Blood Pressure 122/61 122/61 149/70 O2 Sat by Pulse 100 100 98 Oximetry 06/14/17 06/14/17 06/14/17 04:00 04:20 04:40 Temperature 98.9 F Pulse Rate 70 70 70 Pulse Rate [ 70 From Monitor] Respiratory 21 24 17 Rate Blood Pressure 137/63 156/69 149/65 O2 Sat by Pulse 100 100 100 Oximetry 06/14/17 06/14/17 06/14/17 04:42 05:00 05:20 Temperature Pulse Rate 73 73 70 Pulse Rate [ From Monitor] Respiratory 18 17 Rate Blood Pressure 156/69 141/70 150/67 O2 Sat by Pulse 100 99 99 Oximetry 06/14/17 06/14/17 06/14/17 05:40 06:00 06:20 Temperature Pulse Rate 69 74 75 Pulse Rate [ From Monitor] Respiratory 20 29 H 19 Rate Blood Pressure 148/63 133/64 133/64 O2 Sat by Pulse 99 99 99 Oximetry 06/14/17 06/14/17 06/14/17 06:40 07:00 07:20 Temperature Pulse Rate 75 68 66 Pulse Rate [ From Monitor] Respiratory 24 21 20 Rate Blood Pressure 153/71 132/61 137/65 O2 Sat by Pulse 100 100 99 Oximetry 06/14/17 06/14/17 06/14/17 07:40 07:47 07:55 Temperature Pulse Rate 70 66 Pulse Rate [ 66 From Monitor] Respiratory 24 29 H Rate Blood Pressure 134/60 134/60 O2 Sat by Pulse 100 100 Oximetry 06/14/17 06/14/17 06/14/17 08:00 08:20 08:30 Temperature 98.1 F Pulse Rate 64 67 Pulse Rate [ From Monitor] Respiratory 26 H 18 Rate Blood Pressure 124/62 126/59 O2 Sat by Pulse 98 100 Oximetry 06/14/17 06/14/17 06/14/17 08:40 09:00 09:20 Temperature Pulse Rate 65 69 67 Pulse Rate [ From Monitor] Respiratory 26 H 23 25 H Rate Blood Pressure 126/63 134/64 134/64 O2 Sat by Pulse 98 100 Oximetry 06/14/17 06/14/17 06/14/17 09:40 10:00 10:20 Temperature Pulse Rate 66 68 67 Pulse Rate [ From Monitor] Respiratory 16 28 H 23 Rate Blood Pressure 151/69 161/73 150/72 O2 Sat by Pulse 100 99 100 Oximetry 06/14/17 06/14/17 06/14/17 10:40 12:00 12:10 Temperature 97.5 F L Pulse Rate 68 69 Pulse Rate [ From Monitor] Respiratory 26 H 22 Rate Blood Pressure 159/72 173/72 O2 Sat by Pulse 99 100 Oximetry Constitutional: no acute distress, alert Eyes: non-icteric ENT: oropharynx moist Neck: supple, no lymphadenopathy Effort: normal Ascultation: Bilateral: rales (scant) Cardiovascular: regular rate and rhythm Gastrointestinal: normoactive bowel sounds, soft, non-tender, non-distended Integumentary: normal Extremities: no cyanosis, no edema, pulses normal, no ischemia or petechiae Neurologic: unable to assess Psychiatric: mood appropriate, affect normal CBC and BMP: 06/14/17 09:00 06/14/17 09:00 ABG, PT/INR, D-dimer: ABG POC ABG pH 7.427 (7.35-7.45) 06/14/17 12:08 ABG pH TNR 06/12/17 12:55 POC ABG pCO2 32.3 (35-45) L 06/14/17 12:08 ABG pCO2 TNR 06/12/17 12:55 POC ABG pO2 117 (80-105) H 06/14/17 12:08 ABG pO2 TNR 06/12/17 12:55 POC ABG HCO3 21.3 06/14/17 12:08 POC ABG Total CO2 22 06/14/17 12:08 POC ABG O2 Sat 99 06/14/17 12:08 ABG O2 Saturation TNR 06/12/17 12:55 PT/INR, D-dimer PT 18.1 Sec. (12.2-14.9) H 06/13/17 14:00 INR 1.50 (0.87-1.13) H 06/13/17 14:00 Abnormal lab findings: Abnormal Labs 06/12/17 06/13/17 06/13/17 23:40 04:45 04:45 WBC 15.3 H RBC 3.53 L Hgb 8.8 L Hct 26.8 L MCV 76 L MCH 25 L RDW Lymph % (Auto) 4.8 L Lymph # 0.7 L Seg Neutrophils % 89.4 H Seg Neutrophils # 13.7 H PT INR POC ABG pH POC ABG pCO2 POC ABG pO2 Sodium 150 H Potassium Chloride 115.1 H BUN 59 H Creatinine 1.9 H Glucose 156 H POC Glucose 231 H Calcium C-Reactive Protein Albumin 2.5 L 06/13/17 06/13/17 06/13/17 04:45 05:09 05:29 WBC RBC Hgb Hct MCV MCH RDW Lymph % (Auto) Lymph # Seg Neutrophils % Seg Neutrophils # PT INR POC ABG pH 7.467 H POC ABG pCO2 30.7 L POC ABG pO2 106 H Sodium Potassium Chloride BUN Creatinine Glucose POC Glucose 185 H Calcium C-Reactive Protein 8.10 H Albumin 06/13/17 06/13/17 06/13/17 12:28 14:00 16:57 WBC RBC Hgb Hct MCV MCH RDW Lymph % (Auto) Lymph # Seg Neutrophils % Seg Neutrophils # PT 18.1 H INR 1.50 H POC ABG pH POC ABG pCO2 33.6 L POC ABG pO2 Sodium Potassium Chloride BUN Creatinine Glucose POC Glucose 157 H Calcium C-Reactive Protein Albumin 06/13/17 06/13/17 06/14/17 17:41 23:29 05:26 WBC RBC Hgb Hct MCV MCH RDW Lymph % (Auto) Lymph # Seg Neutrophils % Seg Neutrophils # PT INR POC ABG pH POC ABG pCO2 POC ABG pO2 Sodium Potassium Chloride BUN Creatinine Glucose POC Glucose 153 H 133 H 229 H Calcium C-Reactive Protein Albumin 06/14/17 06/14/17 06/14/17 09:00 09:00 11:53 WBC 14.2 H RBC 3.29 L Hgb 8.1 L Hct 25.8 L MCV 78 L MCH 25 L RDW 15.8 H Lymph % (Auto) Lymph # Seg Neutrophils % Seg Neutrophils # PT INR POC ABG pH POC ABG pCO2 POC ABG pO2 Sodium Potassium 3.5 L Chloride 109.4 H BUN 43 H Creatinine 1.7 H Glucose 238 H POC Glucose 243 H Calcium 8.3 L C-Reactive Protein Albumin 06/14/17 12:08 WBC RBC Hgb Hct MCV MCH RDW Lymph % (Auto) Lymph # Seg Neutrophils % Seg Neutrophils # PT INR POC ABG pH POC ABG pCO2 32.3 L POC ABG pO2 117 H Sodium Potassium Chloride BUN Creatinine Glucose POC Glucose Calcium C-Reactive Protein Albumin Chest x-ray: image reviewed
[2017-06-14] MEDS ORDERED: POTASSIUM CHLORIDE FEEDTUBE ONE (13:45)
[2017-06-14] MEDS: NORVASC FEEDTUBE SCH (14:24)
--- NOTE | 2017-06-14 21:15 | Consultation ---
HISTORY: This is a 61-year-old black female that presents to the [facility] with altered mental status for approximately 2 days. Speaking with the son, she apparently had several episodes of hypoglycemia, earlier had been admitted to [facility] at least on 3 occasions for hypoglycemia. After she was discharged home, she began to eat poorly, began gagging, could not swallow and then apparently became hypoglycemic. She was transferred to the hospital, was initially unresponsive, had difficulty breathing, was then intubated. On my examination at this point, she is arousable. She moves all extremities. Motor tone slightly reduced on the right side. Gaze to left is good. She does arouse to pain. She does arouse to the voice of her son. She has full ocular movements. The patient is not having tremors. No seizures, no asterixis. No dystonic movements. She is on the ventilator, intubated, but fully responsive. IMPRESSION: 1. This patient has had a prior old stroke. I see it on the CT scan. It was quite large. I plan to go the [facility] to review their imaging studies to see the date of the stroke. 2. Respiratory insufficiency. 3. Episodes of hypoglycemia. 4. Chronic obstructive pulmonary disease. 5. Diabetes mellitus, insulin-dependent. PLAN: EEG, further diagnostic workup. JOB# [id number] JOHN/CARI
[2017-06-14] MEDS: CARDENE 50 MG in NACL 0.9% 250ML 230 ML IV SCH (23:00)
[2017-06-15] MEDS: ZOSYN/NS 2.25 GM/50ML 2.25 GM/50 ML BAG IV SCH ×2 (05:10→12:59)
[2017-06-15] MEDS: CARDENE 50 MG in NACL 0.9% 250ML 230 ML IV SCH (06:13)
[2017-06-15] MEDS: NACL 0.45% 1000 ML 1,000 ML IV SCH ×2 (06:13→09:27)
[2017-06-15 06:43] LABS: Hematocrit 25.2 % (30.3-42.9); Hemoglobin 8.4 gm/dl (10.1-14.3); Mean Corpuscular HGB Conc 33 % (30-34); Mean Corpuscular Volume 77 fl (79-97); Platelet Count 261 K/mm3 (140-440); Red Cell Distribution Width 15.9 % (13.2-15.2); White Blood Count 10.7 K/mm3 (4.5-11.0)
[2017-06-15 06:54] LABS: Mean Corpuscular Hemoglobin 26 pg (28-32)
[2017-06-15 07:12] LABS: BUN/Creatinine Ratio 19.28; Calcium 8.3 mg/dL (8.4-10.2); Chloride 113.8 mmol/L (98-107); Phosphorous 2.3 mg/dL (2.5-4.5); Potassium 3.9 mmol/L (3.6-5.0)
--- NOTE | 2017-06-15 07:57 | XRay Report ---
AP CHEST: HISTORY: Followup respiratory failure Compared to 06/14/17. The patient has been extubated. The nasogastric tube has been removed. Right venous catheter is unchanged. Borderline heart size and pulmonary vascularity are stable. Discoid atelectasis at the right lung base and partial atelectasis in the left lower lobe are noted. The upper lung zones are clear. IMPRESSION: Extubated. Bibasilar atelectasis. Borderline heart size and pulmonary vascularity.
[2017-06-15] MEDS: VANCOMYCIN/NS 1 GM/250 ML 1 GM/250 ML BAG IV SCH (11:06)
[2017-06-15] MEDS: LOVENOX SUB-Q SCH (11:07)
--- NOTE | 2017-06-15 11:25 | Ultrasound Report ---
ULTRASOUND RENAL BILATERAL HISTORY: Acute renal failure. TECHNIQUE: transabdominal ultrasound with color Doppler interrogation. FINDINGS: The right kidney measures 11.6 x 4.3 x 5.5cm. Right renal cortex: 1.2cm. The left kidney measures 11.7 x 5.3 x 4.4cm. Left renal cortex: 1.3cm. Both kidneys are normal size, contour and position. There is markedly increased renal parenchymal echotexture bilaterally. A 1 cm cyst is noted near the inferior pole of the kidney. No evidence for renal mass, shadowing calculus or hydronephrosis. The bladder is decompressed with a Herman catheter. Trace ascites is noted in Morison's pouch. IMPRESSION: Echogenic kidneys consistent with acute renal failure or severe renal parenchymal disease. No obstructive uropathy. Left renal cyst. Trace ascites.
--- NOTE | 2017-06-15 12:15 | XRay Report ---
ABDOMEN RADIOGRAPH INDICATION: Dobbhoff placement. COMPARISON: None similar. FINDINGS: Frontal abdominal radiograph demonstrates Dobbhoff tube tip about gastric antrum of a possibly distended stomach, projecting in the left lower quadrant. Nonobstructive bowel gas pattern. Mild left retrocardiac haziness and right lower lung atelectasis. Central catheter tip about the cavoatrial junction barely included. EKG leads. Prominent thoracic right-sided osteophytes, mild lumbar levoscoliosis apex about L3 and mid to lower lumbar degenerative changes. EKG leads. CONCLUSION: Satisfactory Dobbhoff tube placement and few other findings, as described. Thank you for the opportunity to participate in this patient's care.
--- NOTE | 2017-06-15 12:31 | Progress Note ---
Assessment and Plan - Patient Problems (1) Acute kidney injury Current Visit: Yes Status: Acute Plan to address problem: Hemodynamic Acute kidney injury superimposed on CKD in the setting of hypotension. Renal function continues to improve. Continue IV fluids. Monitor renal function. (2) Hypernatremia Current Visit: Yes Status: Acute Plan to address problem: Improving with 1/2 NS. (3) HTN (hypertension) Current Visit: Yes Status: Acute Qualifiers: Hypertension type: H Plan to address problem: On Cardene drip and Amlodipine. Decrease IV fluids. Monitor BP. (4) Acute respiratory failure Current Visit: Yes Status: Acute Qualifiers: Respiratory failure complication: hypoxia Qualified Code(s): J96.01 - Acute respiratory failure with hypoxia Plan to address problem: S/p extubated. (5) Encephalopathy Current Visit: Yes Status: Acute Subjective Date of service: 06/15/17 Principal diagnosis: Acute Respiratory Failure; Acute Encephalopathy Interval history: Patient got extubated. Objective - Vital Signs Vital signs: Vital Signs - 12hr 06/15/17 06/15/17 06/15/17 00:41 01:01 01:21 Temperature Pulse Rate 81 74 81 Pulse Rate [ From Monitor] Respiratory 26 H 27 H 26 H Rate Blood Pressure 183/72 135/59 162/72 O2 Sat by Pulse 97 93 98 Oximetry 06/15/17 06/15/17 06/15/17 01:41 02:00 02:21 Temperature Pulse Rate 77 77 63 Pulse Rate [ From Monitor] Respiratory 20 25 H 28 H Rate Blood Pressure 162/72 131/57 131/57 O2 Sat by Pulse 96 94 96 Oximetry 06/15/17 06/15/17 06/15/17 02:41 03:00 03:21 Temperature Pulse Rate 73 70 77 Pulse Rate [ From Monitor] Respiratory 23 20 25 H Rate Blood Pressure 131/57 131/57 156/75 O2 Sat by Pulse 96 98 95 Oximetry 06/15/17 06/15/17 06/15/17 03:40 04:00 04:21 Temperature 98.8 F Pulse Rate 72 76 62 Pulse Rate [ From Monitor] Respiratory 26 H 27 H 20 Rate Blood Pressure 156/75 149/79 156/75 O2 Sat by Pulse 97 93 97 Oximetry 06/15/17 06/15/17 06/15/17 04:41 05:00 05:21 Temperature Pulse Rate 74 76 76 Pulse Rate [ From Monitor] Respiratory 27 H 25 H 25 H Rate Blood Pressure 156/75 149/79 149/79 O2 Sat by Pulse 98 99 99 Oximetry 06/15/17 06/15/17 06/15/17 05:41 06:00 06:21 Temperature Pulse Rate 77 74 73 Pulse Rate [ From Monitor] Respiratory 26 H 25 H 27 H Rate Blood Pressure 149/79 166/79 166/79 O2 Sat by Pulse 98 97 99 Oximetry 06/15/17 06/15/17 06/15/17 06:41 07:00 07:05 Temperature Pulse Rate 71 72 Pulse Rate [ 67 From Monitor] Respiratory 27 H 10 L 25 H Rate Blood Pressure 166/79 133/73 O2 Sat by Pulse 99 96 96 Oximetry 06/15/17 06/15/17 06/15/17 07:21 07:41 08:00 Temperature Pulse Rate 76 75 77 Pulse Rate [ From Monitor] Respiratory 13 21 21 Rate Blood Pressure 133/73 133/73 149/67 O2 Sat by Pulse 97 97 91 Oximetry 06/15/17 06/15/17 06/15/17 08:21 08:41 09:00 Temperature Pulse Rate 65 78 75 Pulse Rate [ From Monitor] Respiratory 13 25 H 14 Rate Blood Pressure 149/67 149/67 147/66 O2 Sat by Pulse 100 98 94 Oximetry 06/15/17 06/15/17 06/15/17 09:06 09:21 09:41 Temperature Pulse Rate 73 73 Pulse Rate [ From Monitor] Respiratory 19 16 Rate Blood Pressure 147/66 147/66 O2 Sat by Pulse 95 98 98 Oximetry 06/15/17 06/15/17 06/15/17 10:00 10:21 10:41 Temperature Pulse Rate 73 75 Pulse Rate [ From Monitor] Respiratory 26 H 22 Rate Blood Pressure 160/63 160/63 160/63 O2 Sat by Pulse 97 97 97 Oximetry 06/15/17 06/15/17 06/15/17 11:01 11:21 11:30 Temperature Pulse Rate 68 76 Pulse Rate [ 76 From Monitor] Respiratory 25 H 25 H 20 Rate Blood Pressure 158/67 158/67 O2 Sat by Pulse 98 97 97 Oximetry - General Appearance General appearance: well-developed, appears stated age, other (no distress) EENT: ATNC, PERRL Neck: supple Respiratory: Present: Clear to Ascultation Cardiology: regular, S1S2, no murmurs Gastrointestinal: normoactive bowel sounds, no tenderness, obese Integumentary: no rash Neurologic: no focal deficit, no asterixis, confused Musculoskeletal: other (no edema) Psychiatric: cooperative - Lab 06/15/17 06:25 06/15/17 06:25 Most recent lab results ABG pH TNR 06/12/17 12:55 ABG pCO2 TNR 06/12/17 12:55 ABG pO2 TNR 06/12/17 12:55 ABG HCO3 TNR 06/12/17 12:55 ABG O2 Saturation TNR 06/12/17 12:55 Calcium 8.3 mg/dL (8.4-10.2) L 06/15/17 06:25 Phosphorus 2.30 mg/dL (2.5-4.5) L 06/15/17 06:25
--- NOTE | 2017-06-15 12:40 | Progress Note ---
Assessment and Plan (1) Acute respiratory failure Current Visit: Yes Status: Acute Qualifiers: Respiratory failure complication: hypoxia Qualified Code(s): J96.01 - Acute respiratory failure with hypoxia Plan to address problem: - continue bronchodilators and pulmonary toilet - continue aspiration precautions - continue to wean oxygen for O2 Sats > 94% - extubated - prn BIPAP (2) Hypertensive urgency Current Visit: Yes Status: Acute Plan to address problem: - resumed cardene drip - will continue to up-titrate oral antihypertensive medication doses - scheduled IV hydralazine also 10mg IV q6h with hold parameters (3) Sepsis Current Visit: Yes Status: Acute Qualifiers: Sepsis type: sepsis due to unspecified organism Qualified Code(s): A41.9 - Sepsis, unspecified organism Plan to address problem: - continue empiric AB's - follow C&S results - continue gentle volume resuscitation re: MURALI / IVVD - continue other care as above (4) Acute kidney injury Current Visit: Yes Status: Acute Plan to address problem: - continue volume resuscitation - follow I's & O's - correct electrolytes as necessary - treat UTI - will defer to nephrology otherwise - improving and non oliguric (5) Encephalopathy Current Visit: Yes Status: Acute Plan to address problem: - unclear baseline mental status but per history this is an acute encephalopathy - CT brain reviewed - MRI pending - will get neurology consultation - improved (6) Type 2 diabetes mellitus Current Visit: No Status: Chronic Qualifiers: Diabetes mellitus complication status: with kidney complications Diabetes mellitus complication detail: D Diabetic retinopathy severity: D Proliferative retinopathy type: P Diabetes mellitus macular edema: D Diabetes mellitus senior living insulin use: D Laterality: L Chronic kidney disease stage: C Plan to address problem: - continue SSI (7) Dysphagia as late effect of cerebrovascular accident (CVA) Current Visit: Yes Status: Acute Plan to address problem: - repeat swallow evaluation - if fails will be best served by PEG placement (8) Discharge planning issues Current Visit: Yes Status: Acute Plan to address problem: - remains critically ill on life sustaining interventions including MVS and cardene drip; at risk for further deterioration including deasth ....30' CCT Subjective Date of service: 06/15/17 Principal diagnosis: Acute Respiratory Failure; Acute Encephalopathy Interval history: Seen and examined at bedside; 24 hour events reviewed; nursing and respiratory care staff consulted; no adverse overnight events reported to me; remains on caredene drip at 3mh/hr; she is also lethargic to somnolent at best; has failed swallow evaluation; no new issues otherwise Objective Vital Signs - 12hr 06/15/17 06/15/17 06/15/17 00:41 01:01 01:21 Temperature Pulse Rate 81 74 81 Pulse Rate [ From Monitor] Respiratory 26 H 27 H 26 H Rate Blood Pressure 183/72 135/59 162/72 O2 Sat by Pulse 97 93 98 Oximetry 06/15/17 06/15/17 06/15/17 01:41 02:00 02:21 Temperature Pulse Rate 77 77 63 Pulse Rate [ From Monitor] Respiratory 20 25 H 28 H Rate Blood Pressure 162/72 131/57 131/57 O2 Sat by Pulse 96 94 96 Oximetry 06/15/17 06/15/17 06/15/17 02:41 03:00 03:21 Temperature Pulse Rate 73 70 77 Pulse Rate [ From Monitor] Respiratory 23 20 25 H Rate Blood Pressure 131/57 131/57 156/75 O2 Sat by Pulse 96 98 95 Oximetry 06/15/17 06/15/17 06/15/17 03:40 04:00 04:21 Temperature 98.8 F Pulse Rate 72 76 62 Pulse Rate [ From Monitor] Respiratory 26 H 27 H 20 Rate Blood Pressure 156/75 149/79 156/75 O2 Sat by Pulse 97 93 97 Oximetry 06/15/17 06/15/17 06/15/17 04:41 05:00 05:21 Temperature Pulse Rate 74 76 76 Pulse Rate [ From Monitor] Respiratory 27 H 25 H 25 H Rate Blood Pressure 156/75 149/79 149/79 O2 Sat by Pulse 98 99 99 Oximetry 06/15/17 06/15/17 06/15/17 05:41 06:00 06:21 Temperature Pulse Rate 77 74 73 Pulse Rate [ From Monitor] Respiratory 26 H 25 H 27 H Rate Blood Pressure 149/79 166/79 166/79 O2 Sat by Pulse 98 97 99 Oximetry 06/15/17 06/15/17 06/15/17 06:41 07:00 07:05 Temperature Pulse Rate 71 72 Pulse Rate [ 67 From Monitor] Respiratory 27 H 10 L 25 H Rate Blood Pressure 166/79 133/73 O2 Sat by Pulse 99 96 96 Oximetry 08/06/15/17 06/15/17 07:21 07:41 08:00 Temperature Pulse Rate 76 75 77 Pulse Rate [ From Monitor] Respiratory 13 21 21 Rate Blood Pressure 133/73 133/73 149/67 O2 Sat by Pulse 97 97 91 Oximetry 06/15/17 06/15/17 06/15/17 08:21 08:41 09:00 Temperature Pulse Rate 65 78 75 Pulse Rate [ From Monitor] Respiratory 13 25 H 14 Rate Blood Pressure 149/67 149/67 147/66 O2 Sat by Pulse 100 98 94 Oximetry 06/15/17 06/15/17 06/15/17 09:06 09:21 09:41 Temperature Pulse Rate 73 73 Pulse Rate [ From Monitor] Respiratory 19 16 Rate Blood Pressure 147/66 147/66 O2 Sat by Pulse 95 98 98 Oximetry 06/15/17 06/15/17 06/15/17 10:00 10:21 10:41 Temperature Pulse Rate 73 75 Pulse Rate [ From Monitor] Respiratory 26 H 22 Rate Blood Pressure 160/63 160/63 160/63 O2 Sat by Pulse 97 97 97 Oximetry 06/15/17 06/15/17 06/15/17 11:01 11:21 11:30 Temperature Pulse Rate 68 76 Pulse Rate [ 76 From Monitor] Respiratory 25 H 25 H 20 Rate Blood Pressure 158/67 158/67 O2 Sat by Pulse 98 97 97 Oximetry Constitutional: no acute distress, other (somnolent) Eyes: non-icteric ENT: oropharynx moist Neck: supple, no lymphadenopathy Effort: normal Ascultation: Bilateral: rales (scant in bases) Cardiovascular: regular rate and rhythm Gastrointestinal: normoactive bowel sounds, soft, non-tender, non-distended Integumentary: normal Extremities: no cyanosis, no edema, pulses normal, no ischemia or petechiae Neurologic: unable to assess Psychiatric: mood appropriate, affect normal CBC and BMP: 06/15/17 06:25 06/16/17 06:45 ABG, PT/INR, D-dimer: ABG POC ABG pH 7.427 (7.35-7.45) 06/14/17 12:08 ABG pH TNR 06/12/17 12:55 POC ABG pCO2 32.3 (35-45) L 06/14/17 12:08 ABG pCO2 TNR 06/12/17 12:55 POC ABG pO2 117 (80-105) H 06/14/17 12:08 ABG pO2 TNR 06/12/17 12:55 POC ABG HCO3 21.3 06/14/17 12:08 POC ABG Total CO2 22 06/14/17 12:08 POC ABG O2 Sat 99 06/14/17 12:08 ABG O2 Saturation TNR 06/12/17 12:55 PT/INR, D-dimer PT 18.1 Sec. (12.2-14.9) H 06/13/17 14:00 INR 1.50 (0.87-1.13) H 06/13/17 14:00 Abnormal lab findings: Abnormal Labs 06/12/17 06/13/17 06/13/17 23:40 04:45 04:45 WBC 15.3 H RBC 3.53 L Hgb 8.8 L Hct 26.8 L MCV 76 L MCH 25 L RDW Lymph % (Auto) 4.8 L Lymph # 0.7 L Seg Neutrophils % 89.4 H Seg Neutrophils # 13.7 H PT INR POC ABG pH POC ABG pCO2 POC ABG pO2 Sodium 150 H Potassium Chloride 115.1 H Carbon Dioxide BUN 59 H Creatinine 1.9 H Glucose 156 H POC Glucose 231 H Calcium Phosphorus C-Reactive Protein Albumin 2.5 L 06/13/17 06/13/17 06/13/17 04:45 05:09 05:29 WBC RBC Hgb Hct MCV MCH RDW Lymph % (Auto) Lymph # Seg Neutrophils % Seg Neutrophils # PT INR POC ABG pH 7.467 H POC ABG pCO2 30.7 L POC ABG pO2 106 H Sodium Potassium Chloride Carbon Dioxide BUN Creatinine Glucose POC Glucose 185 H Calcium Phosphorus C-Reactive Protein 8.10 H Albumin 06/13/17 06/13/17 06/13/17 12:28 14:00 16:57 WBC RBC Hgb Hct MCV MCH RDW Lymph % (Auto) Lymph # Seg Neutrophils % Seg Neutrophils # PT 18.1 H INR 1.50 H POC ABG pH POC ABG pCO2 33.6 L POC ABG pO2 Sodium Potassium Chloride Carbon Dioxide BUN Creatinine Glucose POC Glucose 157 H Calcium Phosphorus C-Reactive Protein Albumin 06/13/17 06/13/17 06/14/17 17:41 23:29 05:26 WBC RBC Hgb Hct MCV MCH RDW Lymph % (Auto) Lymph # Seg Neutrophils % Seg Neutrophils # PT INR POC ABG pH POC ABG pCO2 POC ABG pO2 Sodium Potassium Chloride Carbon Dioxide BUN Creatinine Glucose POC Glucose 153 H 133 H 229 H Calcium Phosphorus C-Reactive Protein Albumin 06/14/17 06/14/17 06/14/17 09:00 09:00 11:53 WBC 14.2 H RBC 3.29 L Hgb 8.1 L Hct 25.8 L MCV 78 L MCH 25 L RDW 15.8 H Lymph % (Auto) Lymph # Seg Neutrophils % Seg Neutrophils # PT INR POC ABG pH POC ABG pCO2 POC ABG pO2 Sodium Potassium 3.5 L Chloride 109.4 H Carbon Dioxide BUN 43 H Creatinine 1.7 H Glucose 238 H POC Glucose 243 H Calcium 8.3 L Phosphorus C-Reactive Protein Albumin 06/14/17 06/14/17 06/15/17 12:08 16:49 06:25 WBC RBC Hgb Hct MCV MCH RDW Lymph % (Auto) Lymph # Seg Neutrophils % Seg Neutrophils # PT INR POC ABG pH POC ABG pCO2 32.3 L POC ABG pO2 117 H Sodium Potassium Chloride 113.8 H Carbon Dioxide 20 L BUN 27 H Creatinine 1.4 H Glucose POC Glucose 185 H Calcium 8.3 L Phosphorus 2.30 L C-Reactive Protein Albumin 06/15/17 06:25 WBC RBC 3.30 L Hgb 8.4 L Hct 25.2 L MCV 77 L MCH 26 L RDW 15.9 H Lymph % (Auto) Lymph # Seg Neutrophils % Seg Neutrophils # PT INR POC ABG pH POC ABG pCO2 POC ABG pO2 Sodium Potassium Chloride Carbon Dioxide BUN Creatinine Glucose POC Glucose Calcium Phosphorus C-Reactive Protein Albumin
[2017-06-15] MEDS: PLAVIX PO SCH (13:00)
[2017-06-15] MEDS: NORVASC FEEDTUBE SCH (13:00)
[2017-06-15] MEDS: PROTONIX PO SCH (13:00)
[2017-06-15] MEDS ORDERED: APRESOLINE IV PRN (13:25)
[2017-06-15] MEDS: APRESOLINE PO SCH (14:27)
--- NOTE | 2017-06-15 16:31 | Progress Note ---
Assessment and Plan This is a 61-year-old female Patient brought to the hospital by EMS for altered mental status. As per verbal report from EMS, patient found unresponsive at home, but uncertain duration of time, for uncertain mechanism. Patient had fingerstick in the field at 283. Upon arrival to the ER, patient was intubated, and was found to be hypotensive with a blood pressure in the 60s/70s. Possible acute CVA, POA Ct head done on admission showed rt temporoparietal region low attenuation No prior study to compare patient failed swallow study today will get MRI brain plavix, lipitor when dobhoff gets placed neurology consulted Acute encephalopathy, POA likely from CVA vs aspiration Vs renal failure vs sepsis cont to treat underlying condition unknown baseline, unable to contact family Acute respiratory failure s/p extubation Likely acute CVA vs Sepsis induced vs from possible aspiration Cont supplimental o2, nebs Cont abx coverage for aspiration Sepsis Likely from UTI and aspiration PNA Patient started on IV Zosn and Vancomycin blood cx negative, sputum and urine cx report pending Hypotension, Likely from underlying sepsis Briefly required Levophed following admission Now on IV fluid only and resolved Hypertension, accelerated placed on Cardene drip, cont to monitor will place on meds when dobhoff is placed Acute kidney injury on CKD Likely from vasomotor nephropathy from sepsis Patient also has history of CKD 3 IV fluids for now and monitor BUN/Cr Nephrology following, renal US showed medical renal disease Hyponatremia, improved Continue IV fluid now and monitor sodium level Type 2 diabetes mellitus Sliding scale of insulin Coverage for now with Accu-Chek every 6 hours DVT prophylaxis on Heparin Nutrition will be placed on TF repeat swallow study tomorrow The high probability of a clinically significant, sudden or life threatening deterioration of the system(s) required my full and direct attention, intervention and personal management. The aggregate critical care time was [35] minutes. This time is in addition to time spent performing reported procedures but includes the following: [x] Data Review and interpretation [x] Patient assessment and monitoring of vital signs [x] Documentation [x] Medication orders and management Subjective Date of service: 06/15/17 Principal diagnosis: Acute Respiratory Failure; Acute Encephalopathy Interval history: Patient seen and examined Pt was extubated yesterday and breathing with N/c failed swallow study today tried to call family member but no one answer the call and other number was wrong Objective - Exam Narrative Exam: General appearance: well-developed, appears stated age EENT: ATNC Neck: Present: neck supple, trachea midline Respiratory: Other (coarse breath sounds) Heart: regular, S1S2, no murmurs Gastrointestinal: Present: normoactive bowel sounds, obese. Absent: tenderness , distended Integumentary: no rash Neurologic: follow command Musculoskeletal: Present: other (no edema) - Constitutional Vitals: Vital Signs - 12hr 06/15/17 06/15/17 06/15/17 04:41 05:00 05:21 Pulse Rate 74 76 76 Pulse Rate [ From Monitor] Respiratory 27 H 25 H 25 H Rate Blood Pressure 156/75 149/79 149/79 O2 Sat by Pulse 98 99 99 Oximetry 06/15/17 06/15/17 06/15/17 05:41 06:00 06:21 Pulse Rate 77 74 73 Pulse Rate [ From Monitor] Respiratory 26 H 25 H 27 H Rate Blood Pressure 149/79 166/79 166/79 O2 Sat by Pulse 98 97 99 Oximetry 06/15/17 06/15/17 06/15/17 06:41 07:00 07:05 Pulse Rate 71 72 Pulse Rate [ 67 From Monitor] Respiratory 27 H 10 L 25 H Rate Blood Pressure 166/79 133/73 O2 Sat by Pulse 99 96 96 Oximetry 06/15/17 06/15/17 06/15/17 07:21 07:41 08:00 Pulse Rate 76 75 77 Pulse Rate [ From Monitor] Respiratory 13 21 21 Rate Blood Pressure 133/73 133/73 149/67 O2 Sat by Pulse 97 97 91 Oximetry 06/15/17 06/15/17 06/15/17 08:21 08:41 09:00 Pulse Rate 65 78 75 Pulse Rate [ From Monitor] Respiratory 13 25 H 14 Rate Blood Pressure 149/67 149/67 147/66 O2 Sat by Pulse 100 98 94 Oximetry 06/15/17 06/15/17 06/15/17 09:06 09:21 09:41 Pulse Rate 73 73 Pulse Rate [ From Monitor] Respiratory 19 16 Rate Blood Pressure 147/66 147/66 O2 Sat by Pulse 95 98 98 Oximetry 06/15/17 06/15/17 06/15/17 10:00 10:21 10:41 Pulse Rate 73 75 Pulse Rate [ From Monitor] Respiratory 26 H 22 Rate Blood Pressure 160/63 160/63 160/63 O2 Sat by Pulse 97 97 97 Oximetry 06/15/17 06/15/17 06/15/17 11:01 11:21 11:30 Pulse Rate 68 76 Pulse Rate [ 76 From Monitor] Respiratory 25 H 25 H 20 Rate Blood Pressure 158/67 158/67 O2 Sat by Pulse 98 97 97 Oximetry 06/15/17 06/15/17 06/15/17 11:41 12:01 12:21 Pulse Rate 79 78 78 Pulse Rate [ From Monitor] Respiratory 26 H 31 H 28 H Rate Blood Pressure 158/67 158/67 169/67 O2 Sat by Pulse 98 92 95 Oximetry 06/15/17 06/15/17 06/15/17 12:41 13:00 13:21 Pulse Rate 80 79 78 Pulse Rate [ From Monitor] Respiratory 16 23 25 H Rate Blood Pressure 169/67 176/71 176/71 O2 Sat by Pulse 96 98 100 Oximetry 06/15/17 06/15/17 13:41 14:27 Pulse Rate 82 78 Pulse Rate [ From Monitor] Respiratory 24 Rate Blood Pressure 176/71 150/70 O2 Sat by Pulse 98 Oximetry - Labs CBC & Chem 7: 06/15/17 06:25 06/15/17 06:25 Labs: Abnormal lab results 06/14/17 06/15/17 06/15/17 Range/Units 16:49 06:25 06:25 RBC 3.30 L (3.65-5.03) M/mm3 Hgb 8.4 L (10.1-14.3) gm/dl Hct 25.2 L (30.3-42.9) % MCV 77 L (79-97) fl MCH 26 L (28-32) pg RDW 15.9 H (13.2-15.2) % Chloride 113.8 H (98-107) mmol/L Carbon Dioxide 20 L (22-30) mmol/L BUN 27 H (7-17) mg/dL Creatinine 1.4 H (0.7-1.2) mg/dL POC Glucose 185 H (70-105) Calcium 8.3 L (8.4-10.2) mg/dL Phosphorus 2.30 L (2.5-4.5) mg/dL
[2017-06-16] MEDS: APRESOLINE PO SCH ×4 (00:39→22:19)
[2017-06-16 07:19] LABS: Calcium 8.1 mg/dL (8.4-10.2); Chloride 109.9 mmol/L (98-107); Phosphorous 2.3 mg/dL (2.5-4.5)
--- NOTE | 2017-06-16 07:46 | XRay Report ---
AP CHEST: HISTORY: Followup respiratory failure Right venous catheter and feeding tube are in adequate position. There has been near complete resolution of the bibasilar atelectasis since yesterday's exam. Mild partial atelectasis in the left lower lobe remains. Otherwise, the lungs are clear. Heart size and pulmonary vascularity are within normal limits. IMPRESSION: Near resolution of the bibasilar atelectasis/opacities. Near normal AP chest.
--- NOTE | 2017-06-16 08:25 | Progress Note ---
Assessment and Plan - Patient Problems (1) Acute kidney injury Current Visit: Yes Status: Acute Plan to address problem: Hemodynamic Acute kidney injury superimposed on CKD in the setting of hypotension. Renal function continues to improve. Decrease IV fluids. Monitor renal function. (2) Hypernatremia Current Visit: Yes Status: Acute Plan to address problem: Improved with 1/2 NS. (3) HTN (hypertension) Current Visit: Yes Status: Acute Qualifiers: Hypertension type: H Plan to address problem: On Cardene drip and Amlodipine. Decrease IV fluids. Increase Hydralazine. Monitor BP. (4) Acute respiratory failure Current Visit: Yes Status: Acute Qualifiers: Respiratory failure complication: hypoxia Qualified Code(s): J96.01 - Acute respiratory failure with hypoxia Plan to address problem: S/p extubated. (5) Encephalopathy Current Visit: Yes Status: Acute Subjective Date of service: 06/16/17 Principal diagnosis: Acute Respiratory Failure; Acute Encephalopathy Interval history: Patient was seen and examined at the bedside. Objective - Vital Signs Vital signs: Vital Signs - 12hr 06/15/17 06/15/17 06/15/17 20:41 21:01 21:21 Temperature Pulse Rate 75 80 88 Pulse Rate [ From Monitor] Respiratory 37 H 21 16 Rate Blood Pressure 155/68 155/68 155/68 O2 Sat by Pulse 98 95 90 Oximetry 06/15/17 06/15/17 06/15/17 21:41 22:00 22:21 Temperature Pulse Rate 76 74 74 Pulse Rate [ From Monitor] Respiratory 19 31 H 18 Rate Blood Pressure 147/76 163/76 163/76 O2 Sat by Pulse 93 98 97 Oximetry 06/15/17 06/15/17 06/15/17 22:41 23:01 23:21 Temperature Pulse Rate 75 77 81 Pulse Rate [ From Monitor] Respiratory 20 19 10 L Rate Blood Pressure 163/76 173/74 173/74 O2 Sat by Pulse 97 91 96 Oximetry 06/15/17 06/15/17 06/15/17 23:36 23:41 23:59 Temperature 98.3 F Pulse Rate 67 87 Pulse Rate [ From Monitor] Respiratory 18 20 Rate Blood Pressure 173/74 O2 Sat by Pulse 99 98 Oximetry 06/16/17 06/16/17 06/16/17 00:00 00:21 00:39 Temperature Pulse Rate 73 87 76 Pulse Rate [ 73 From Monitor] Respiratory 28 H 31 H Rate Blood Pressure 164/70 164/70 164/70 O2 Sat by Pulse 94 98 Oximetry 06/16/17 06/16/17 06/16/17 00:41 01:00 01:21 Temperature Pulse Rate 71 71 76 Pulse Rate [ From Monitor] Respiratory 24 32 H 20 Rate Blood Pressure 164/70 163/71 163/71 O2 Sat by Pulse 97 91 96 Oximetry 06/16/17 06/16/17 06/16/17 01:41 01:52 02:01 Temperature Pulse Rate 73 67 68 Pulse Rate [ From Monitor] Respiratory 17 24 Rate Blood Pressure 163/71 163/71 139/54 O2 Sat by Pulse 97 93 Oximetry 06/16/17 06/16/17 06/16/17 02:21 02:41 03:00 Temperature Pulse Rate 73 69 65 Pulse Rate [ From Monitor] Respiratory 29 H 35 H 33 H Rate Blood Pressure 139/54 139/54 128/56 O2 Sat by Pulse 94 95 94 Oximetry 06/16/17 06/16/17 06/16/17 03:21 03:41 04:00 Temperature 98.6 F Pulse Rate 65 83 73 Pulse Rate [ From Monitor] Respiratory 19 23 34 H Rate Blood Pressure 128/56 128/56 148/61 O2 Sat by Pulse 93 94 94 Oximetry 06/16/17 06/16/17 06/16/17 04:21 04:41 05:01 Temperature Pulse Rate 71 67 73 Pulse Rate [ From Monitor] Respiratory 36 H 21 29 H Rate Blood Pressure 148/61 148/61 147/69 O2 Sat by Pulse 97 98 94 Oximetry 06/16/17 06/16/17 06/16/17 05:21 05:41 06:01 Temperature Pulse Rate 73 77 74 Pulse Rate [ From Monitor] Respiratory 27 H 23 28 H Rate Blood Pressure 147/69 147/69 161/71 O2 Sat by Pulse 98 97 93 Oximetry 06/16/17 06/16/17 06/16/17 06:21 06:41 06:46 Temperature Pulse Rate 66 68 Pulse Rate [ From Monitor] Respiratory 34 H Rate Blood Pressure 161/71 161/71 161/71 O2 Sat by Pulse 87 98 Oximetry 06/16/17 06/16/17 06/16/17 07:00 07:21 07:41 Temperature Pulse Rate 69 65 69 Pulse Rate [ From Monitor] Respiratory 34 H 39 H 35 H Rate Blood Pressure 163/70 163/70 163/70 O2 Sat by Pulse 94 99 98 Oximetry - General Appearance General appearance: well-developed, appears stated age, obese, other (no distress) EENT: ATNC, PERRL, hearing intact Neck: supple Respiratory: Present: Clear to Ascultation Cardiology: regular, S1S2, no murmurs Gastrointestinal: normoactive bowel sounds, no tenderness, obese Integumentary: no rash Neurologic: confused, disoriented, other (follows some simple command) Musculoskeletal: other (no edema) - Lab 06/15/17 06:25 06/16/17 06:45 Most recent lab results ABG pH TNR 06/12/17 12:55 ABG pCO2 TNR 06/12/17 12:55 ABG pO2 TNR 06/12/17 12:55 ABG HCO3 TNR 06/12/17 12:55 ABG O2 Saturation TNR 06/12/17 12:55 Calcium 8.1 mg/dL (8.4-10.2) L 06/16/17 06:45 Phosphorus 2.30 mg/dL (2.5-4.5) L 06/16/17 06:45
[2017-06-16] MEDS ORDERED: PHOS-NAK FEEDTUBE ONE ×2 (08:44→12:00)
[2017-06-16] MEDS: LEVAQUIN 250MG/50ML 250 MG/50 ML BAG IV SCH (09:42)
[2017-06-16] MEDS: LOVENOX SUB-Q SCH (09:42)
[2017-06-16] MEDS: NORVASC FEEDTUBE SCH (09:42)
[2017-06-16] MEDS: PLAVIX PO SCH (09:42)
[2017-06-16] MEDS: PROTONIX PO SCH (09:43)
--- NOTE | 2017-06-16 11:17 | Progress Note ---
Assessment and Plan (1) Acute respiratory failure Current Visit: Yes Status: Acute Qualifiers: Respiratory failure complication: hypoxia Qualified Code(s): J96.01 - Acute respiratory failure with hypoxia Plan to address problem: - continue bronchodilators and pulmonary toilet - continue aspiration precautions - continue to wean oxygen for O2 Sats > 94% - extubated - prn BIPAP (2) Hypertensive urgency Current Visit: Yes Status: Acute Plan to address problem: - resumed cardene drip - will continue to up-titrate oral antihypertensive medication doses - scheduled IV hydralazine also 10mg IV q6h with hold parameters (3) Sepsis Current Visit: Yes Status: Acute Qualifiers: Sepsis type: sepsis due to unspecified organism Qualified Code(s): A41.9 - Sepsis, unspecified organism Plan to address problem: - continue empiric AB's - follow C&S results - continue gentle volume resuscitation re: MURALI / IVVD - continue other care as above (4) Acute kidney injury Current Visit: Yes Status: Acute Plan to address problem: - continue volume resuscitation - follow I's & O's - correct electrolytes as necessary - treat UTI - will defer to nephrology otherwise - improving and non oliguric (5) Encephalopathy Current Visit: Yes Status: Acute Plan to address problem: - unclear baseline mental status but per history this is an acute encephalopathy - CT brain reviewed - MRI pending - will get neurology consultation - improved (6) Type 2 diabetes mellitus Current Visit: No Status: Chronic Qualifiers: Diabetes mellitus complication status: with kidney complications Diabetes mellitus complication detail: D Diabetic retinopathy severity: D Proliferative retinopathy type: P Diabetes mellitus macular edema: D Diabetes mellitus nursing home insulin use: D Laterality: L Chronic kidney disease stage: C Plan to address problem: - continue SSI (7) Dysphagia as late effect of cerebrovascular accident (CVA) Current Visit: Yes Status: Acute Plan to address problem: - repeat swallow evaluation - if fails will be best served by PEG placement (8) Discharge planning issues Current Visit: Yes Status: Acute Plan to address problem: - remains critically ill on life sustaining interventions including MVS and cardene drip; at risk for further deterioration including deasth ....30' CCT Subjective Date of service: 06/16/17 Principal diagnosis: Acute Respiratory Failure; Acute Encephalopathy Interval history: Seen and examined at bedside; 24 hour events reviewed; nursing and respiratory care staff consulted; no adverse overnight events reported to me; BP's better but failed repeat swallow evaluation; no new issues otherwise Objective Vital Signs - 12hr 06/15/17 06/15/17 06/15/17 23:21 23:36 23:41 Temperature Pulse Rate 81 67 87 Pulse Rate [ From Monitor] Respiratory 10 L 18 20 Rate Blood Pressure 173/74 173/74 O2 Sat by Pulse 96 99 98 Oximetry 06/15/17 06/16/17 06/16/17 23:59 00:00 00:21 Temperature 98.3 F Pulse Rate 73 87 Pulse Rate [ 73 From Monitor] Respiratory 28 H 31 H Rate Blood Pressure 164/70 164/70 O2 Sat by Pulse 94 98 Oximetry 06/16/17 06/16/17 06/16/17 00:39 00:41 01:00 Temperature Pulse Rate 76 71 71 Pulse Rate [ From Monitor] Respiratory 24 32 H Rate Blood Pressure 164/70 164/70 163/71 O2 Sat by Pulse 97 91 Oximetry 06/16/17 06/16/17 06/16/17 01:21 01:41 01:52 Temperature Pulse Rate 76 73 67 Pulse Rate [ From Monitor] Respiratory 20 17 Rate Blood Pressure 163/71 163/71 163/71 O2 Sat by Pulse 96 97 Oximetry 06/16/17 06/16/17 06/16/17 02:01 02:21 02:41 Temperature Pulse Rate 68 73 69 Pulse Rate [ From Monitor] Respiratory 24 29 H 35 H Rate Blood Pressure 139/54 139/54 139/54 O2 Sat by Pulse 93 94 95 Oximetry 06/16/17 06/16/17 06/16/17 03:00 03:21 03:41 Temperature Pulse Rate 65 65 83 Pulse Rate [ From Monitor] Respiratory 33 H 19 23 Rate Blood Pressure 128/56 128/56 128/56 O2 Sat by Pulse 94 93 94 Oximetry 06/16/17 06/16/17 06/16/17 04:00 04:21 04:41 Temperature 98.6 F Pulse Rate 73 71 67 Pulse Rate [ From Monitor] Respiratory 34 H 36 H 21 Rate Blood Pressure 148/61 148/61 148/61 O2 Sat by Pulse 94 97 98 Oximetry 06/16/17 06/16/17 06/16/17 05:01 05:21 05:41 Temperature Pulse Rate 73 73 77 Pulse Rate [ From Monitor] Respiratory 29 H 27 H 23 Rate Blood Pressure 147/69 147/69 147/69 O2 Sat by Pulse 94 98 97 Oximetry 06/16/17 06/16/17 06/16/17 06:01 06:21 06:41 Temperature Pulse Rate 74 66 Pulse Rate [ From Monitor] Respiratory 28 H 34 H Rate Blood Pressure 161/71 161/71 161/71 O2 Sat by Pulse 93 87 98 Oximetry 06/16/17 06/16/17 06/16/17 06:46 07:00 07:21 Temperature Pulse Rate 68 69 65 Pulse Rate [ From Monitor] Respiratory 34 H 39 H Rate Blood Pressure 161/71 163/70 163/70 O2 Sat by Pulse 94 99 Oximetry 06/16/17 06/16/17 06/16/17 07:41 08:00 08:21 Temperature Pulse Rate 69 69 72 Pulse Rate [ 69 From Monitor] Respiratory 35 H 35 H 30 H Rate Blood Pressure 163/70 144/65 144/65 O2 Sat by Pulse 98 92 96 Oximetry 06/16/17 09:42 Temperature Pulse Rate 72 Pulse Rate [ From Monitor] Respiratory Rate Blood Pressure 142/69 O2 Sat by Pulse Oximetry Constitutional: no acute distress, alert Eyes: non-icteric ENT: oropharynx moist Neck: supple, no lymphadenopathy Effort: normal Ascultation: Bilateral: rales (scant) Cardiovascular: regular rate and rhythm Gastrointestinal: normoactive bowel sounds, soft, non-tender, non-distended Integumentary: normal Extremities: no cyanosis, no edema, pulses normal, no ischemia or petechiae Neurologic: unable to assess Psychiatric: mood appropriate, affect normal CBC and BMP: 06/17/17 04:55 06/17/17 04:55 ABG, PT/INR, D-dimer: ABG POC ABG pH 7.427 (7.35-7.45) 06/14/17 12:08 ABG pH TNR 06/12/17 12:55 POC ABG pCO2 32.3 (35-45) L 06/14/17 12:08 ABG pCO2 TNR 06/12/17 12:55 POC ABG pO2 117 (80-105) H 06/14/17 12:08 ABG pO2 TNR 06/12/17 12:55 POC ABG HCO3 21.3 06/14/17 12:08 POC ABG Total CO2 22 06/14/17 12:08 POC ABG O2 Sat 99 06/14/17 12:08 ABG O2 Saturation TNR 06/12/17 12:55 PT/INR, D-dimer PT 18.1 Sec. (12.2-14.9) H 06/13/17 14:00 INR 1.50 (0.87-1.13) H 06/13/17 14:00 Abnormal lab findings: Abnormal Labs 06/12/17 06/13/17 06/13/17 23:40 04:45 04:45 WBC 15.3 H RBC 3.53 L Hgb 8.8 L Hct 26.8 L MCV 76 L MCH 25 L RDW Lymph % (Auto) 4.8 L Lymph # 0.7 L Seg Neutrophils % 89.4 H Seg Neutrophils # 13.7 H PT INR POC ABG pH POC ABG pCO2 POC ABG pO2 Sodium 150 H Potassium Chloride 115.1 H Carbon Dioxide BUN 59 H Creatinine 1.9 H Glucose 156 H POC Glucose 231 H Calcium Phosphorus C-Reactive Protein Albumin 2.5 L 06/13/17 06/13/17 06/13/17 04:45 05:09 05:29 WBC RBC Hgb Hct MCV MCH RDW Lymph % (Auto) Lymph # Seg Neutrophils % Seg Neutrophils # PT INR POC ABG pH 7.467 H POC ABG pCO2 30.7 L POC ABG pO2 106 H Sodium Potassium Chloride Carbon Dioxide BUN Creatinine Glucose POC Glucose 185 H Calcium Phosphorus C-Reactive Protein 8.10 H Albumin 06/13/17 06/13/17 06/13/17 12:28 14:00 16:57 WBC RBC Hgb Hct MCV MCH RDW Lymph % (Auto) Lymph # Seg Neutrophils % Seg Neutrophils # PT 18.1 H INR 1.50 H POC ABG pH POC ABG pCO2 33.6 L POC ABG pO2 Sodium Potassium Chloride Carbon Dioxide BUN Creatinine Glucose POC Glucose 157 H Calcium Phosphorus C-Reactive Protein Albumin 06/13/17 06/13/17 06/14/17 17:41 23:29 05:26 WBC RBC Hgb Hct MCV MCH RDW Lymph % (Auto) Lymph # Seg Neutrophils % Seg Neutrophils # PT INR POC ABG pH POC ABG pCO2 POC ABG pO2 Sodium Potassium Chloride Carbon Dioxide BUN Creatinine Glucose POC Glucose 153 H 133 H 229 H Calcium Phosphorus C-Reactive Protein Albumin 06/14/17 06/14/1717 09:00 09:00 11:53 WBC 14.2 H RBC 3.29 L Hgb 8.1 L Hct 25.8 L MCV 78 L MCH 25 L RDW 15.8 H Lymph % (Auto) Lymph # Seg Neutrophils % Seg Neutrophils # PT INR POC ABG pH POC ABG pCO2 POC ABG pO2 Sodium Potassium 3.5 L Chloride 109.4 H Carbon Dioxide BUN 43 H Creatinine 1.7 H Glucose 238 H POC Glucose 243 H Calcium 8.3 L Phosphorus C-Reactive Protein Albumin 06/14/17 06/14/17 06/15/17 12:08 16:49 06:25 WBC RBC Hgb Hct MCV MCH RDW Lymph % (Auto) Lymph # Seg Neutrophils % Seg Neutrophils # PT INR POC ABG pH POC ABG pCO2 32.3 L POC ABG pO2 117 H Sodium Potassium Chloride 113.8 H Carbon Dioxide 20 L BUN 27 H Creatinine 1.4 H Glucose POC Glucose 185 H Calcium 8.3 L Phosphorus 2.30 L C-Reactive Protein Albumin 06/15/17 06/15/17 06/16/17 06:25 23:42 05:14 WBC RBC 3.30 L Hgb 8.4 L Hct 25.2 L MCV 77 L MCH 26 L RDW 15.9 H Lymph % (Auto) Lymph # Seg Neutrophils % Seg Neutrophils # PT INR POC ABG pH POC ABG pCO2 POC ABG pO2 Sodium Potassium Chloride Carbon Dioxide BUN Creatinine Glucose POC Glucose 153 H 149 H Calcium Phosphorus C-Reactive Protein Albumin 06/16/17 06:45 WBC RBC Hgb Hct MCV MCH RDW Lymph % (Auto) Lymph # Seg Neutrophils % Seg Neutrophils # PT INR POC ABG pH POC ABG pCO2 POC ABG pO2 Sodium Potassium Chloride 109.9 H Carbon Dioxide 19 L BUN 24 H Creatinine Glucose 151 H POC Glucose Calcium 8.1 L Phosphorus 2.30 L C-Reactive Protein Albumin
--- NOTE | 2017-06-16 11:34 | XRay Report ---
ABDOMEN RADIOGRAPH INDICATION: New Dobbhoff placement. COMPARISON: 06/15/2017 FINDINGS: Frontal abdominal radiograph now demonstrates Dobbhoff tube slightly looped in the distal stomach with its tip directed towards the antrum. No other significant interval change. CONCLUSION: Dobbhoff tube tip about the gastric antrum, as described. Thank you for the opportunity to participate in this patient's care.
[2017-06-16] MEDS ORDERED: IMODIUM PO PRN (11:54)
--- NOTE | 2017-06-16 15:29 | Event Note ---
Date: 06/16/17 Consult received for G-tube placement. Discussed with Dr. Ariza. Will await further evaluation of mental status changes, and whether or not pt had new CVA. If then deemed appropriate for long -term nutritional support with G-tube, please stop Plavix and consult us. Thanks.
--- NOTE | 2017-06-16 16:38 | Magnetic Resonance Report ---
MRI BRAIN WITH AND WITHOUT CONTRAST INDICATION: Possible CVA. COMPARISON: 06/12/[address] FINDINGS: Multiplanar and multisequence MRI of the brain performed before and after 15 ml MultiHance intravenously. Though in part limited due to motion artifact, approximately 2.3 cm left frontal cortical based infarct with mild edema noted anteriorly, axial series 4, image 22 as also approximately 1.1 cm left cerebellar hemisphere acute restricted diffusion focus medially, image 9. No other definite acute infarct, hemorrhage, mass effect or midline shift. Symmetric, age-appropriate ventricles and remainder sulci with mild periventricular and few white matter FLAIR and T2 weighted hyperintensities, most surrounding approximately 4.2 x 2 cm right parietal encephalomalacia as on axial image 18. Slight ex-vacuo dilatation of the right occipital horn also noted. No abnormal extra-axial masses or fluid collections. No focal suspicious abnormal enhancement. Approximately 4 mm left cerebellar lacunar infarct, axial image 8. Otherwise unremarkable posterior fossa with preserved basilar cisterns and symmetric seventh and eighth nerve complexes. Normal eye globes. Rightward nasal septal deviation and approximately 4 mm rightward nasal septal spur. Moderate bilateral ethmoid sinusitis, greatest posteriorly. Mild to moderate right greater than left maxillary sinusitis as well, more so inferiorly. Severe, complete bilateral sphenoid sinus opacification is new as is moderate bilateral mastoiditis. Partially empty sella. Normal remainder midline structures without evidence of Chiari malformation. CONCLUSION: 1. Left anterior frontal and smaller left medial cerebellar acute infarctions, as detailed above. Large right parietal old infarct/encephalomalacia again noted, as described. 2. Interval worsening sinusitis, as described. 3. Various other findings, including age-appropriate atrophy and microvascular changes, amongst others, as above. Thank you for the opportunity to participate in this patient's care.
--- NOTE | 2017-06-16 17:27 | Progress Note ---
Assessment and Plan Assessment and plan: This is a 61-year-old female Patient brought to the hospital by EMS for altered mental status. As per verbal report from EMS, patient found unresponsive at home, but uncertain duration of time, for uncertain mechanism. Patient had fingerstick in the field at 283. Upon arrival to the ER, patient was intubated, and was found to be hypotensive with a blood pressure in the 60s/70s. Acute CVA, POA Ct head done on admission showed rt temporoparietal region low attenuation MRI shows left anterior frontal and a small left mid cerebellar acute infarctions Patient is on aspirin and atorvastatin I had the Plavix for possible PEG placement patient failed swallow study today neurology consulted Acute encephalopathy, POA likely from CVA Acute respiratory failure s/p extubation, resolved Likely acute CVA vs Sepsis induced vs from possible aspiration Cont supplimental o2, nebs Cont abx coverage for aspiration Sepsis Likely from UTI and aspiration PNA Patient started on IV Zosn and Vancomycin blood cx negative, sputum and urine cx report pending Hypotension, - resolved Hypertension, accelerated placed on Cardene drip Acute kidney injury on CKD - rsoolved Hyponatremia, improved - resolved Type 2 diabetes mellitus Sliding scale of insulin Coverage for now with Accu-Chek every 6 hours DVT prophylaxis on Heparin Nutrition will be placed on TF failed swallow evaluation and will consider PEG placement History Interval history: Patient was seen and evaluated this morning, she was complaining she is hungry, that she failed swallow evaluation. Hospitalist Physical - Physical exam Narrative exam: Not in cardiopulmonary distress. The patient appeared well nourished and normally developed. Vital signs as documented. Head exam is unremarkable. No scleral icterus . Neck is without jugular venous distension, thyromegaly, or carotid bruits. Lungs are clear to auscultation. Cardiac exam reveals regular rate and Rhythm. Abdominal exam reveals normal bowel sounds, no masses, no organomegaly and no aortic enlargement. Extremities are nonedematous and both femoral and pedal pulses are normal. SAAS ARCHITECT: Alert and oriented. - Constitutional Vitals: Temp Pulse Resp BP Pulse Ox 98.6 F 76 39 H 111/63 98 06/16/17 04:00 06/16/17 16:41 06/16/17 16:41 06/16/17 16:41 06/16/17 16:41 General appearance: Present: severe distress, well-nourished Results - Labs CBC & Chem 7: 06/15/17 06:25 06/16/17 06:45 Labs: Laboratory Last Values WBC 10.7 K/mm3 (4.5-11.0) 06/15/17 06:25 RBC 3.30 M/mm3 (3.65-5.03) L 06/15/17 06:25 Hgb 8.4 gm/dl (10.1-14.3) L 06/15/17 06:25 Hct 25.2 % (30.3-42.9) L 06/15/17 06:25 MCV 77 fl (79-97) L 06/15/17 06:25 MCH 26 pg (28-32) L 06/15/17 06:25 MCHC 33 % (30-34) 06/15/17 06:25 RDW 15.9 % (13.2-15.2) H 06/15/17 06:25 Plt Count 261 K/mm3 (140-440) 06/15/17 06:25 Lymph % (Auto) 4.8 % (13.4-35.0) L 06/13/17 04:45 [place] % (Auto) 5.3 % (0.0-7.3) 06/13/17 04:45 Eos % (Auto) 0.4 % (0.0-4.3) 06/13/17 04:45 Baso % (Auto) 0.1 % (0.0-1.8) 06/13/17 04:45 Lymph # 0.7 K/mm3 (1.2-5.4) L 06/13/17 04:45 [place] # 0.8 K/mm3 (0.0-0.8) 06/13/17 04:45 Eos # 0.1 K/mm3 (0.0-0.4) 06/13/17 04:45 Baso # 0.0 K/mm3 (0.0-0.1) 06/13/17 04:45 Add Manual Diff Complete 06/12/17 12:55 Total Counted 100 06/12/17 12:55 Seg Neutrophils % 89.4 % (40.0-70.0) H 06/13/17 04:45 Band Neutrophils % 0 % 06/12/17 12:55 Lymphocytes % (Manual) 2.0 % (13.4-35.0) L 06/12/17 12:55 Reactive Lymphs % (Man) 0 % 06/12/17 12:55 Monocytes % (Manual) 1.0 % (0.0-7.3) 06/12/17 12:55 Metamyelocytes % 0 % 06/12/17 12:55 Myelocytes % 0 % 06/12/17 12:55 Promyelocytes % 0 % 06/12/17 12:55 Blast Cells % 0 % 06/12/17 12:55 Nucleated RBC % Not Reportable 06/12/17 12:55 Seg Neutrophils # 13.7 K/mm3 (1.8-7.7) H 06/13/17 04:45 Seg Neutrophils # Man 14.5 K/mm3 (1.8-7.7) H 06/12/17 12:55 Band Neutrophils # 0.0 K/mm3 06/12/17 12:55 Lymphocytes # (Manual) 0.3 K/mm3 (1.2-5.4) L 06/12/17 12:55 Abs React Lymphs (Man) 0.0 K/mm3 06/12/17 12:55 Monocytes # (Manual) 0.1 K/mm3 (0.0-0.8) 06/12/17 12:55 Eosinophils # (Manual) 0.0 K/mm3 (0.0-0.4) 06/12/17 12:55 Basophils # (Manual) 0.0 K/mm3 (0.0-0.1) 06/12/17 12:55 Metamyelocytes # 0.0 K/mm3 06/12/17 12:55 Myelocytes # 0.0 K/mm3 06/12/17 12:55 Promyelocytes # 0.0 K/mm3 06/12/17 12:55 Blast Cells # 0.0 K/mm3 06/12/17 12:55 WBC Morphology Not Reportable 06/12/17 12:55 Hypersegmented Neuts Not Reportable 06/12/17 12:55 Hyposegmented Neuts Not Reportable 06/12/17 12:55 Hypogranular Neuts Not Reportable 06/12/17 12:55 Smudge Cells Not Reportable 06/12/17 12:55 Toxic Granulation Not Reportable 06/12/17 12:55 Toxic Vacuolation Not Reportable 06/12/17 12:55 Dohle Bodies Not Reportable 06/12/17 12:55 Pelger-Huet Anomaly Not Reportable 06/12/17 12:55 Penelope Rods Not Reportable 06/12/17 12:55 Platelet Estimate Appears normal 06/12/17 12:55 Clumped Platelets Not Reportable 06/12/17 12:55 Plt Clumps, EDTA Not Reportable 06/12/17 12:55 Large Platelets Not Reportable 06/12/17 12:55 Giant Platelets Not Reportable 06/12/17 12:55 Platelet Satelliting Not Reportable 06/12/17 12:55 Plt Morphology Comment Not Reportable 06/12/17 12:55 RBC Morphology Not Reportable 06/12/17 12:55 Dimorphic RBCs Not Reportable 06/12/17 12:55 Polychromasia Not Reportable 06/12/17 12:55 Hypochromasia 1+ 06/12/17 12:55 Poikilocytosis Not Reportable 06/12/17 12:55 Anisocytosis 1+ 06/12/17 12:55 Microcytosis Not Reportable 06/12/17 12:55 Macrocytosis Not Reportable 06/12/17 12:55 Spherocytes Not Reportable 06/12/17 12:55 Pappenheimer Bodies Not Reportable 06/12/17 12:55 Sickle Cells Not Reportable 06/12/17 12:55 Target Cells 1+ 06/12/17 12:55 Tear Drop Cells Not Reportable 06/12/17 12:55 Ovalocytes Not Reportable 06/12/17 12:55 Helmet Cells Not Reportable 06/12/17 12:55 Mckay-Forest Bodies Not Reportable 06/12/17 12:55 [place] Rings Not Reportable 06/12/17 12:55 Gooding Cells Not Reportable 06/12/17 12:55 Bite Cells Not Reportable 06/12/17 12:55 Crenated Cell Not Reportable 06/12/17 12:55 Elliptocytes Not Reportable 06/12/17 12:55 Acanthocytes (Spur) Not Reportable 06/12/17 12:55 Rouleaux Not Reportable 06/12/17 12:55 Hemoglobin C Crystals Not Reportable 06/12/17 12:55 Schistocytes Few 06/12/17 12:55 Malaria parasites Not Reportable 06/12/17 12:55 Anastacio Bodies Not Reportable 06/12/17 12:55 Hem Pathologist Commnt No 06/12/17 12:55 PT 18.1 Sec. (12.2-14.9) H 06/13/17 14:00 INR 1.50 (0.87-1.13) H 06/13/17 14:00 APTT 29.2 Sec. (24.2-36.6) 06/12/17 12:55 POC ABG pH 7.427 (7.35-7.45) 06/14/17 12:08 ABG pH TNR 06/12/17 12:55 POC ABG pCO2 32.3 (35-45) L 06/14/17 12:08 ABG pCO2 TNR 06/12/17 12:55 POC ABG pO2 117 (80-105) H 06/14/17 12:08 ABG pO2 TNR 06/12/17 12:55 POC ABG HCO3 21.3 06/14/17 12:08 ABG HCO3 TNR 06/12/17 12:55 POC ABG Total CO2 22 06/14/17 12:08 POC ABG O2 Sat 99 06/14/17 12:08 ABG O2 Saturation TNR 06/12/17 12:55 ABG O2 Content TNR 06/12/17 12:55 POC ABG Base Excess -3 06/14/17 12:08 ABG Base Excess TNR 06/12/17 12:55 ABG Hemoglobin TNR 06/12/17 12:55 ABG Carboxyhemoglobin TNR 06/12/17 12:55 ABG Methemoglobin TNR 06/12/17 12:55 VBG pH 7.421 (7.320-7.420) H 06/12/17 12:55 Oxyhemoglobin TNR 06/12/17 12:55 FiO2 35 % 06/14/17 12:08 Sodium 141 mmol/L (137-145) 06/16/17 06:45 Potassium 4.0 mmol/L (3.6-5.0) 06/16/17 06:45 Chloride 109.9 mmol/L (98-107) H 06/16/17 06:45 Carbon Dioxide 19 mmol/L (22-30) L 06/16/17 06:45 Anion Gap 16 mmol/L 06/16/17 06:45 BUN 24 mg/dL (7-17) H 06/16/17 06:45 Creatinine 1.2 mg/dL (0.7-1.2) 06/16/17 06:45 Estimated GFR 55 ml/min 06/16/17 06:45 BUN/Creatinine Ratio 20.00 % 06/16/17 06:45 Glucose 151 mg/dL (65-100) H 06/16/17 06:45 POC Glucose 252 (70-105) H 06/16/17 11:50 Lactic Acid 1.10 mmol/L (0.7-2.0) 06/12/17 14:47 Calcium 8.1 mg/dL (8.4-10.2) L 06/16/17 06:45 Phosphorus 2.30 mg/dL (2.5-4.5) L 06/16/17 06:45 Total Bilirubin 0.40 mg/dL (0.1-1.2) 06/13/17 04:45 AST 9 units/L (5-40) 06/13/17 04:45 ALT 8 units/L (7-56) 06/13/17 04:45 Alkaline Phosphatase 62 units/L (35-129) 06/13/17 04:45 Ammonia 40.0 umol/L (25-60) 06/12/17 13:06 Total Creatine Kinase 30 units/L (30-135) 06/13/17 13:06 CK-MB (CK-2) < 1.0 ng/mL (0.0-4.0) 06/12/17 12:55 CK-MB (CK-2) Rel Index 2.9 (0-4) 06/12/17 12:55 Troponin T 0.032 ng/mL (0.00-0.029) H 06/12/17 12:55 C-Reactive Protein 8.10 mg/dL (0.00-1.30) H 06/13/17 04:45 NT-Pro-B Natriuret Pep 484.7 pg/mL (0-900) 06/12/17 12:55 Total Protein 6.3 g/dL (6.3-8.2) 06/13/17 04:45 Albumin 2.5 g/dL (3.9-5) L 06/13/17 04:45 Albumin/Globulin Ratio 0.7 % 06/13/17 04:45 Triglycerides 114 mg/dL (2-149) 06/12/17 12:55 Cholesterol 157 mg/dL (50-199) 06/12/17 12:55 LDL Cholesterol Direct 96 mg/dL (50-130) 06/12/17 12:55 HDL Cholesterol 39 mg/dL (40-59) L 06/12/17 12:55 Cholesterol/HDL Ratio 4.02 % 06/12/17 12:55 TSH 1.160 mlU/mL (0.270-4.200) 06/12/17 13:06 Urine Color Yellow (Yellow) 06/12/17 13:07 Urine Turbidity Cloudy (Clear) 06/12/17 13:07 Urine pH 5.0 (5.0-7.0) 06/12/17 13:07 Ur Specific [place] 1.015 (1.003-1.030) 06/12/17 13:07 Urine Protein 100 mg/dl mg/dL (Negative) 06/12/17 13:07 Urine Glucose (UA) Neg mg/dL (Negative) 06/12/17 13:07 Urine Ketones Neg mg/dL (Negative) 06/12/17 13:07 Urine Blood Mod (Negative) 06/12/17 13:07 Urine Nitrite Neg (Negative) 06/12/17 13:07 Urine Bilirubin Neg (Negative) 06/12/17 13:07 Urine Urobilinogen < 2.0 mg/dL (<2.0) 06/12/17 13:07 Ur Leukocyte Esterase Lg (Negative) 06/12/17 13:07 Urine WBC (Auto) 179.0 /HPF (0.0-6.0) H 06/12/17 13:07 Urine RBC (Auto) 8.0 /HPF (0.0-6.0) 06/12/17 13:07 Urine Bacteria (Auto) 4+ /HPF (Negative) 06/12/17 13:07 Urine WBC Clumps 3+ /HPF 06/12/17 13:07 Urine Mucus Few /HPF 06/12/17 13:07 Salicylates < 0.3 mg/dL (2.8-20.0) L 06/12/17 13:06 Acetaminophen < 15.0 ug/mL (10.0-30.0) 06/12/17 13:06 Plasma/Serum Alcohol < 0.01 gm% (0-0.07) 06/12/17 13:06 Blood Type O POSITIVE 06/12/17 13:05 Antibody Screen Negative 06/12/17 13:05 - Imaging and Cardiology MRI - head: image reviewed (left anterior frontal and small left mid cerebellar acute infarctions)
[2017-06-17 05:41] LABS: Basophils % (Auto) 0.2 % (0.0-1.8); Eosinophils % (Auto) 2.1 % (0.0-4.3); Hematocrit 24.4 % (30.3-42.9); Hemoglobin 8.2 gm/dl (10.1-14.3); Mean Corpuscular HGB Conc 34 % (30-34); Mean Corpuscular Volume 75 fl (79-97); Platelet Count 262 K/mm3 (140-440); Red Blood Count 3.25 M/mm3 (3.65-5.03); Red Cell Distribution Width 16.1 % (13.2-15.2); White Blood Count 13.6 K/mm3 (4.5-11.0)
[2017-06-17 05:45] LABS: Mean Corpuscular Hemoglobin 25 pg (28-32)
[2017-06-17] MEDS: APRESOLINE PO SCH ×2 (06:12→15:58)
[2017-06-17 06:14] LABS: BUN/Creatinine Ratio 22.5; Calcium 8.2 mg/dL (8.4-10.2); Chloride 107.3 mmol/L (98-107); Phosphorous 2.8 mg/dL (2.5-4.5); Potassium 3.8 mmol/L (3.6-5.0)
--- NOTE | 2017-06-17 08:10 | Progress Note ---
Assessment and Plan - Patient Problems (1) Acute kidney injury Current Visit: Yes Status: Acute Plan to address problem: Hemodynamic Acute kidney injury superimposed on CKD in the setting of hypotension. Renal function continues to improve. Monitor renal function. (2) Hypernatremia Current Visit: Yes Status: Acute Plan to address problem: Improved. (3) HTN (hypertension) Current Visit: Yes Status: Acute Qualifiers: Hypertension type: H Plan to address problem: Off Cardene drip. BP controlled with Amlodipine and Hydralazine. Monitor BP. (4) Acute respiratory failure Current Visit: Yes Status: Acute Qualifiers: Respiratory failure complication: hypoxia Qualified Code(s): J96.01 - Acute respiratory failure with hypoxia Plan to address problem: S/p extubated. (5) Encephalopathy Current Visit: Yes Status: Acute Subjective Date of service: 06/17/17 Principal diagnosis: Acute Respiratory Failure; Acute Encephalopathy Interval history: Patient was seen and examined at the bedside. Objective - Vital Signs Vital signs: Vital Signs - 12hr 06/16/17 06/16/17 06/16/17 20:21 20:41 21:01 Temperature Pulse Rate 77 80 78 Respiratory 28 H 15 33 H Rate Blood Pressure 146/66 146/66 149/70 O2 Sat by Pulse 100 99 100 Oximetry 06/16/17 06/16/17 06/16/17 21:21 21:41 22:00 Temperature Pulse Rate 75 80 77 Respiratory 18 37 H 38 H Rate Blood Pressure 149/70 149/70 O2 Sat by Pulse 100 100 100 Oximetry 06/16/17 06/16/17 06/16/17 22:19 22:20 22:40 Temperature Pulse Rate 78 66 78 Respiratory 38 H 37 H Rate Blood Pressure 148/62 149/70 149/70 O2 Sat by Pulse 100 99 Oximetry 06/16/17 06/16/17 06/16/17 23:00 23:20 23:40 Temperature Pulse Rate 78 79 88 Respiratory 37 H 41 H 24 Rate Blood Pressure 143/59 143/59 143/59 O2 Sat by Pulse 98 96 98 Oximetry 06/16/17 06/17/17 06/17/17 23:51 00:00 00:20 Temperature 98.7 F Pulse Rate 87 87 Respiratory 28 H 21 Rate Blood Pressure 143/59 163/55 O2 Sat by Pulse 98 98 Oximetry 06/17/17 06/17/17 06/17/17 00:22 00:40 00:42 Temperature Pulse Rate 86 79 79 Respiratory 24 33 H 33 H Rate Blood Pressure 163/55 163/55 O2 Sat by Pulse 98 96 96 Oximetry 06/17/17 06/17/17 06/17/17 01:00 01:20 01:40 Temperature Pulse Rate 81 81 77 Respiratory 24 25 H 29 H Rate Blood Pressure 161/58 163/55 163/55 O2 Sat by Pulse 97 97 97 Oximetry 06/17/17 06/17/17 06/17/17 02:00 02:20 02:40 Temperature Pulse Rate 79 80 79 Respiratory 25 H 30 H 26 H Rate Blood Pressure 161/62 161/62 161/62 O2 Sat by Pulse 97 94 97 Oximetry 06/17/17 06/17/17 06/17/17 03:00 03:20 03:40 Temperature Pulse Rate 79 78 68 Respiratory 29 H 32 H 25 H Rate Blood Pressure 165/75 165/75 165/75 O2 Sat by Pulse 94 93 73 L Oximetry 06/17/17 06/17/17 06/17/17 04:00 04:20 04:40 Temperature 98.8 F Pulse Rate 79 78 72 Respiratory 27 H 25 H 35 H Rate Blood Pressure 165/75 166/65 166/65 O2 Sat by Pulse 97 89 95 Oximetry 06/17/17 06/17/17 06/17/17 05:00 05:20 05:40 Temperature Pulse Rate 77 78 75 Respiratory 24 24 38 H Rate Blood Pressure 166/65 177/69 177/69 O2 Sat by Pulse 93 96 95 Oximetry 06/17/17 06/17/17 06/17/17 06:00 06:12 06:20 Temperature Pulse Rate 76 77 77 Respiratory 38 H 38 H Rate Blood Pressure 163/67 163/67 163/67 O2 Sat by Pulse 96 Oximetry 06/17/17 06/17/17 06/17/17 06:40 07:00 07:20 Temperature Pulse Rate 75 79 78 Respiratory 17 19 11 L Rate Blood Pressure 177/69 148/53 148/53 O2 Sat by Pulse 96 96 97 Oximetry 06/17/17 07:40 Temperature Pulse Rate 78 Respiratory 12 Rate Blood Pressure 148/53 O2 Sat by Pulse 96 Oximetry - General Appearance General appearance: well-developed, appears stated age, other (no distress) EENT: ATNC, PERRL Neck: supple Respiratory: Present: Clear to Ascultation Cardiology: regular, S1S2, no murmurs Gastrointestinal: normoactive bowel sounds, no tenderness, obese Integumentary: no rash Neurologic: other (not following any command, non-verbal) Musculoskeletal: other (no edema) - Lab 06/17/17 04:55 06/17/17 04:55 Most recent lab results ABG pH TNR 06/12/17 12:55 ABG pCO2 TNR 06/12/17 12:55 ABG pO2 TNR 06/12/17 12:55 ABG HCO3 TNR 06/12/17 12:55 ABG O2 Saturation TNR 06/12/17 12:55 Calcium 8.2 mg/dL (8.4-10.2) L 06/17/17 04:55 Phosphorus 2.80 mg/dL (2.5-4.5) D 06/17/17 04:55
[2017-06-17] MEDS: LOVENOX SUB-Q SCH (09:10)
[2017-06-17] MEDS: PROTONIX PO SCH (09:10)
[2017-06-17] MEDS: NORVASC FEEDTUBE SCH (09:10)
[2017-06-17] MEDS: LEVAQUIN 250MG/50ML 250 MG/50 ML BAG IV SCH (09:11)
[2017-06-17] MEDS ORDERED: BABY ASPIRIN PO SCH (10:00)
--- NOTE | 2017-06-17 10:58 | XRay Report ---
AP CHEST: HISTORY: Followup respiratory failure The right venous catheter and feeding tube are unchanged. Heart size and vascularity remain within normal limits. The right lung is generally clear. Subtle opacity remains in the left lower lobe. No pleural effusion or pneumothorax. IMPRESSION: No change.
--- NOTE | 2017-06-17 11:34 | Progress Note ---
Assessment and Plan (1) Acute respiratory failure Current Visit: Yes Status: Acute Qualifiers: Respiratory failure complication: hypoxia Qualified Code(s): J96.01 - Acute respiratory failure with hypoxia Plan to address problem: - continue bronchodilators and pulmonary toilet - continue aspiration precautions - continue to wean oxygen for O2 Sats > 94% - extubated (2) Hypertensive urgency Current Visit: Yes Status: Acute Plan to address problem: - now off cardene drip - will continue to titrate oral antihypertensive medication doses - scheduled IV hydralazine also 10mg IV q6h with hold parameters (3) Sepsis Current Visit: Yes Status: Acute Qualifiers: Sepsis type: sepsis due to unspecified organism Qualified Code(s): A41.9 - Sepsis, unspecified organism Plan to address problem: - continue empiric AB's - follow C&S results - continue gentle volume resuscitation re: MURALI / IVVD - continue other care as above (4) Acute kidney injury Current Visit: Yes Status: Acute Plan to address problem: - continue volume resuscitation - follow I's & O's - correct electrolytes as necessary - treat UTI - will defer to nephrology otherwise - improving and non oliguric (5) Encephalopathy Current Visit: Yes Status: Acute Plan to address problem: - unclear baseline mental status but per history this is an acute encephalopathy - CT brain reviewed - MRI revealed acute infarct - neurology w/up ongoing (6) Type 2 diabetes mellitus Current Visit: No Status: Chronic Qualifiers: Diabetes mellitus complication status: with kidney complications Diabetes mellitus complication detail: D Diabetic retinopathy severity: D Proliferative retinopathy type: P Diabetes mellitus macular edema: D Diabetes mellitus custodial insulin use: D Laterality: L Chronic kidney disease stage: C Plan to address problem: - continue SSI (7) Dysphagia as late effect of cerebrovascular accident (CVA) Current Visit: Yes Status: Acute Plan to address problem: - repeat swallow evaluation - if fails will be best served by PEG placement (8) Sleep disorder breathing Current Visit: Yes Status: Acute Plan to address problem: - clinical de-saturations and apnea's noted at bedside - will begin scheduled qhs BIPAP (9) Discharge planning issues Current Visit: Yes Status: Acute Plan to address problem: - transfer to LTAC Subjective Date of service: 06/17/17 Principal diagnosis: Acute Respiratory Failure; Acute Encephalopathy Interval history: Seen and examined at bedside; 24 hour events reviewed; nursing and respiratory care staff consulted; no adverse overnight events reported to me; resting peacefully in bed; no emesis or overt aspiration; tolerating tube feeds; LTAC evaluation ongoing; MRI confirms acute CVA and neurology evaluation ongoing Objective Vital Signs - 12hr 06/16/17 06/16/17 06/17/17 23:40 23:51 00:00 Temperature 98.7 F Pulse Rate 88 87 Respiratory 24 28 H Rate Blood Pressure 143/59 143/59 O2 Sat by Pulse 98 98 Oximetry 06/17/17 06/17/17 06/17/17 00:20 00:22 00:40 Temperature Pulse Rate 87 86 79 Respiratory 21 24 33 H Rate Blood Pressure 163/55 163/55 O2 Sat by Pulse 98 98 96 Oximetry 06/17/17 06/17/17 06/17/17 00:42 01:00 01:20 Temperature Pulse Rate 79 81 81 Respiratory 33 H 24 25 H Rate Blood Pressure 163/55 161/58 163/55 O2 Sat by Pulse 96 97 97 Oximetry 06/17/17 06/17/17 06/17/17 01:40 02:00 02:20 Temperature Pulse Rate 77 79 80 Respiratory 29 H 25 H 30 H Rate Blood Pressure 163/55 161/62 161/62 O2 Sat by Pulse 97 97 94 Oximetry 06/17/17 06/17/17 06/17/17 02:40 03:00 03:20 Temperature Pulse Rate 79 79 78 Respiratory 26 H 29 H 32 H Rate Blood Pressure 161/62 165/75 165/75 O2 Sat by Pulse 97 94 93 Oximetry 06/17/17 06/17/17 06/17/17 03:40 04:00 04:20 Temperature 98.8 F Pulse Rate 68 79 78 Respiratory 25 H 27 H 25 H Rate Blood Pressure 165/75 165/75 166/65 O2 Sat by Pulse 73 L 97 89 Oximetry 06/17/17 06/17/17 06/17/17 04:40 05:00 05:20 Temperature Pulse Rate 72 77 78 Respiratory 35 H 24 24 Rate Blood Pressure 166/65 166/65 177/69 O2 Sat by Pulse 95 93 96 Oximetry 06/17/17 06/17/17 06/17/17 05:40 06:00 06:12 Temperature Pulse Rate 75 76 77 Respiratory 38 H 38 H Rate Blood Pressure 177/69 163/67 163/67 O2 Sat by Pulse 95 Oximetry 06/17/17 06/17/17 06/17/17 06:20 06:40 07:00 Temperature Pulse Rate 77 75 79 Respiratory 38 H 17 19 Rate Blood Pressure 163/67 177/69 148/53 O2 Sat by Pulse 96 96 96 Oximetry 06/17/17 06/17/17 06/17/17 07:20 07:40 08:00 Temperature Pulse Rate 78 78 79 Respiratory 11 L 12 23 Rate Blood Pressure 148/53 148/53 148/53 O2 Sat by Pulse 97 96 93 Oximetry 06/17/17 09:10 Temperature Pulse Rate 92 H Respiratory Rate Blood Pressure 159/63 O2 Sat by Pulse Oximetry Constitutional: no acute distress, alert Eyes: non-icteric ENT: oropharynx moist Neck: supple, no lymphadenopathy Effort: mildly labored Ascultation: Bilateral: rales (scant) Cardiovascular: regular rate and rhythm Gastrointestinal: normoactive bowel sounds, soft, non-tender, non-distended Integumentary: normal Extremities: no cyanosis, no edema, pulses normal, no ischemia or petechiae Neurologic: unable to assess Psychiatric: mood appropriate, affect normal CBC and BMP: 06/17/17 04:55 06/17/17 04:55 ABG, PT/INR, D-dimer: ABG POC ABG pH 7.427 (7.35-7.45) 06/14/17 12:08 ABG pH TNR 06/12/17 12:55 POC ABG pCO2 32.3 (35-45) L 06/14/17 12:08 ABG pCO2 TNR 06/12/17 12:55 POC ABG pO2 117 (80-105) H 06/14/17 12:08 ABG pO2 TNR 06/12/17 12:55 POC ABG HCO3 21.3 06/14/17 12:08 POC ABG Total CO2 22 06/14/17 12:08 POC ABG O2 Sat 99 06/14/17 12:08 ABG O2 Saturation TNR 06/12/17 12:55 PT/INR, D-dimer PT 18.1 Sec. (12.2-14.9) H 06/13/17 14:00 INR 1.50 (0.87-1.13) H 06/13/17 14:00 Abnormal lab findings: Abnormal Labs 0806/13/17 06/13/17 23:40 04:45 04:45 WBC 15.3 H RBC 3.53 L Hgb 8.8 L Hct 26.8 L MCV 76 L MCH 25 L RDW Lymph % (Auto) 4.8 L Lymph # 0.7 L Seg Neutrophils % 89.4 H Seg Neutrophils # 13.7 H PT INR POC ABG pH POC ABG pCO2 POC ABG pO2 Sodium 150 H Potassium Chloride 115.1 H Carbon Dioxide BUN 59 H Creatinine 1.9 H Glucose 156 H POC Glucose 231 H Calcium Phosphorus C-Reactive Protein Albumin 2.5 L 06/13/17 06/13/17 06/13/17 04:45 05:09 05:29 WBC RBC Hgb Hct MCV MCH RDW Lymph % (Auto) Lymph # Seg Neutrophils % Seg Neutrophils # PT INR POC ABG pH 7.467 H POC ABG pCO2 30.7 L POC ABG pO2 106 H Sodium Potassium Chloride Carbon Dioxide BUN Creatinine Glucose POC Glucose 185 H Calcium Phosphorus C-Reactive Protein 8.10 H Albumin 06/13/17 06/13/17 06/13/17 12:28 14:00 16:57 WBC RBC Hgb Hct MCV MCH RDW Lymph % (Auto) Lymph # Seg Neutrophils % Seg Neutrophils # PT 18.1 H INR 1.50 H POC ABG pH POC ABG pCO2 33.6 L POC ABG pO2 Sodium Potassium Chloride Carbon Dioxide BUN Creatinine Glucose POC Glucose 157 H Calcium Phosphorus C-Reactive Protein Albumin 06/13/17 06/13/17 06/14/17 17:41 23:29 05:26 WBC RBC Hgb Hct MCV MCH RDW Lymph % (Auto) Lymph # Seg Neutrophils % Seg Neutrophils # PT INR POC ABG pH POC ABG pCO2 POC ABG pO2 Sodium Potassium Chloride Carbon Dioxide BUN Creatinine Glucose POC Glucose 153 H 133 H 229 H Calcium Phosphorus C-Reactive Protein Albumin 06/14/17 06/14/17 06/14/17 09:00 09:00 11:53 WBC 14.2 H RBC 3.29 L Hgb 8.1 L Hct 25.8 L MCV 78 L MCH 25 L RDW 15.8 H Lymph % (Auto) Lymph # Seg Neutrophils % Seg Neutrophils # PT INR POC ABG pH POC ABG pCO2 POC ABG pO2 Sodium Potassium 3.5 L Chloride 109.4 H Carbon Dioxide BUN 43 H Creatinine 1.7 H Glucose 238 H POC Glucose 243 H Calcium 8.3 L Phosphorus C-Reactive Protein Albumin 06/14/17 06/14/17 06/15/17 12:08 16:49 06:25 WBC RBC Hgb Hct MCV MCH RDW Lymph % (Auto) Lymph # Seg Neutrophils % Seg Neutrophils # PT INR POC ABG pH POC ABG pCO2 32.3 L POC ABG pO2 117 H Sodium Potassium Chloride 113.8 H Carbon Dioxide 20 L BUN 27 H Creatinine 1.4 H Glucose POC Glucose 185 H Calcium 8.3 L Phosphorus 2.30 L C-Reactive Protein Albumin 06/15/17 06/15/17 06/16/17 06:25 23:42 05:14 WBC RBC 3.30 L Hgb 8.4 L Hct 25.2 L MCV 77 L MCH 26 L RDW 15.9 H Lymph % (Auto) Lymph # Seg Neutrophils % Seg Neutrophils # PT INR POC ABG pH POC ABG pCO2 POC ABG pO2 Sodium Potassium Chloride Carbon Dioxide BUN Creatinine Glucose POC Glucose 153 H 149 H Calcium Phosphorus C-Reactive Protein Albumin 06/16/17 06/16/17 06/16/17 06:45 11:50 17:51 WBC RBC Hgb Hct MCV MCH RDW Lymph % (Auto) Lymph # Seg Neutrophils % Seg Neutrophils # PT INR POC ABG pH POC ABG pCO2 POC ABG pO2 Sodium Potassium Chloride 109.9 H Carbon Dioxide 19 L BUN 24 H Creatinine Glucose 151 H POC Glucose 252 H 130 H Calcium 8.1 L Phosphorus 2.30 L C-Reactive Protein Albumin 06/16/17 06/17/17 06/17/17 23:23 04:55 04:55 WBC 13.6 H RBC 3.25 L Hgb 8.2 L Hct 24.4 L MCV 75 L MCH 25 L RDW 16.1 H Lymph % (Auto) 7.2 L Lymph # 1.0 L Seg Neutrophils % 84.5 H Seg Neutrophils # 11.5 H PT INR POC ABG pH POC ABG pCO2 POC ABG pO2 Sodium Potassium Chloride 107.3 H Carbon Dioxide 19 L BUN 27 H Creatinine Glucose 172 H POC Glucose 180 H Calcium 8.2 L Phosphorus C-Reactive Protein Albumin 06/17/17 05:37 WBC RBC Hgb Hct MCV MCH RDW Lymph % (Auto) Lymph # Seg Neutrophils % Seg Neutrophils # PT INR POC ABG pH POC ABG pCO2 POC ABG pO2 Sodium Potassium Chloride Carbon Dioxide BUN Creatinine Glucose POC Glucose 208 H Calcium Phosphorus C-Reactive Protein Albumin
--- NOTE | 2017-06-17 14:11 | Discharge Summary ---
Providers - Providers Date of Admission: 06/12/17 17:39 Date of discharge: 06/17/17 Attending physician: MIKEY ESCOBEDO MD 06/12/17 20:50 Consult to Wound/ET Nurse [CONS] Stat Reason For Exam: wound eval-POA multiple wounds- see MD notes 06/13/17 11:33 Consult to Physician [CONS] Routine Consulting Provider: MARIA TERESA BAKER Reason For Exam: MURALI Place consult to:: DR BAKER Notified:: Stacey Phone number called:: spoke Was contact made?: Yes If yes, spoke with:: Stacey Time called:: 13:00 06/13/17 18:28 Consult to Physician [CONS] Routine Consulting Provider: HAI FREIRE Reason For Exam: Acute Encephalopathy; Abnormal CT brain Place consult to:: barry Notified:: yes Phone number called:: [phone] Was contact made?: Yes If yes, spoke with:: answering service Time called:: 07:55 06/14/17 18:44 Speech Therapy Evaluation and Treat [CONS] Routine Reason For Exam: post extubated 06/16/17 14:11 Consult to Physician [CONS] Routine Consulting Provider: REYNA ANAYA Reason For Exam: PEG tube Place consult to:: Dr. 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 Left anterior frontal and smaller left mid and cerebellar acute infarctions. Large right parietal old infarct/encephalomalacia again noted. Hospital course: This is a 61-year-old female Patient brought to the hospital by EMS for altered mental status. As per verbal report from EMS, patient found unresponsive at home, but uncertain duration of time, for uncertain mechanism. Patient had fingerstick in the field at 283. Upon arrival to the ER, patient was intubated, and was found to be hypotensive with a blood pressure in the 60s/70s. Patient was resuscitated with IV fluids and given IV fluids. Patient showed improvement in her mentation. MRI was done that is as stated above showed acute CVA. She was placed on aspirin and statin. Speech and swallow evaluation was done and patient failed swallow evaluation. Patient need PEG placement and I took was GI and due to diffuse uptake while she is in the sixth floor. Patient is transferred to LTAC. I have discussed the management plan with her son who all agreed with the plan of care. Disposition: [id number] Time spent for discharge: 31 minutes - Discharge Diagnoses (1) Acute kidney injury Status: Acute (2) Acute respiratory failure Status: Acute Qualifiers: Respiratory failure complication: hypoxia Qualified Code(s): J96.01 - Acute respiratory failure with hypoxia (3) Dysphagia as late effect of cerebrovascular accident (CVA) Status: Acute (4) Encephalopathy Status: Acute (5) HTN (hypertension) Status: Acute Qualifiers: Hypertension type: H (6) Hypernatremia Status: Acute Core Measure Documentation - Palliative Care Palliative Care/ Comfort Measures: Not Applicable - Core Measures Any of the following diagnoses?: stroke - Stroke Discharge Requirements Statin for LDL = or >70 mg/dl on DC: Yes Anticoag for atrial fib/atrial flutter: Not Applicable Reason for no anticoag for AF/F on DC: Not Indicated Antithrombotic for ischemic stroke: Yes Exam - Physical Exam Narrative exam: Not in cardiopulmonary distress. The patient appeared well nourished and normally developed. Vital signs as documented. Head exam is unremarkable. No scleral icterus . Neck is without jugular venous distension, thyromegaly, or carotid bruits. Lungs are clear to auscultation. Cardiac exam reveals regular rate and Rhythm. Abdominal exam reveals normal bowel sounds, no masses, no organomegaly and no aortic enlargement. Extremities are nonedematous and both femoral and pedal pulses are normal. BICYCLE REPAIRMAN: Alert and oriented. - Constitutional Vitals: Temp Pulse Resp BP Pulse Ox 98.3 F 73 32 H 148/52 81 L 06/17/17 12:00 06/17/17 12:40 06/17/17 12:40 06/17/17 12:40 06/17/17 12:40 Plan Activity: fall precautions Weight Bearing Status: Non-Weight Bearing Diet: per dietitian instruction, other Follow up with: PRIMARY CARE, [Primary Care Provider] - 3-5 Days Forms: Accompanied Note
[2017-06-17 16:36] VITALS: BP 165/73
== END 2017-06-17 18:00 | DRG 871 ==
LOC: ED 12:04 → CC1 17:39
PROVIDERS: ADMIT Internal Medicine; ATTEND Internal Medicine
PROC: 5A1945Z Respiratory Ventilation, 24-96 Consecutive Hours (ICD-10-PCS; principal; 2017-06-12)
PROC: 0BH17EZ Insertion of Endotracheal Airway into Trachea, Via Natural or Artificial Opening (ICD-10-PCS; 2017-06-12)
PROC: 4A033R1 Measurement of Arterial Saturation, Peripheral, Percutaneous Approach (ICD-10-PCS; 2017-06-12)
DX: A41.9 Sepsis, unspecified organism (principal); G93.40 Encephalopathy, unspecified; J96.01 Acute respiratory failure with hypoxia; I63.9 Cerebral infarction, unspecified; E87.0 Hyperosmolality and hypernatremia; N17.9 Acute kidney failure, unspecified; Z79.4 Long term (current) use of insulin; I16.0 Hypertensive urgency; I12.9 Hypertensive chronic kidney disease with stage 1 through stage 4 chronic kidney disease, or unspecified chronic kidney disease; E11.22 Type 2 diabetes mellitus with diabetic chronic kidney disease; N18.3 Chronic kidney disease, stage 3 (moderate); I69.391 Dysphagia following cerebral infarction; R13.10 Dysphagia, unspecified; G47.9 Sleep disorder, unspecified
CPT/HCPCS: 36415; 36600; 70450; 70553; 71010; 72040; 72125; 74000; 76770; 80048; 80053; 80061; 80320; 81001; 82140; 82550; 82553; 82803; 82805; 82962; 83880; 84100; 84443; 84484; 85007; 85025; 85027; 85610; 85730; 86140; 86850; 86900; 86901; 87040; 87070; 87076; 87086; 87186; 87205; 93005; 93010; 94002; 94003; 94760; 96365; 96366; 96367; 96368; 96375; 99291; A9270-GY; A9577; G0480; G8996-GN; G8997-GN; G8998-GN; J0360; J0456; J0696; J1170; J1650; J1815; J1956; J2370; J2543; J3010; J3370; J7030; J7050